=== PATIENT | female | born 1990 | race Caucasian/White ===

== ENCOUNTER 2022-02-07 22:14 | Emergency (ER) | payer BC, SELFPAY ==
[2022-02-07 22:25] VITALS: BP 115/81; PULSE 82; RESP 18; TEMP 36.8; O2SAT 97; BMI 24.6
--- NOTE | 2022-02-07 22:38 | CRLHL7_ITS ---
For Patients: As a result of the Century Cures Act, medical imaging exams and procedure reports are released immediately into your electronic medical record. You may view this report before your referring provider. If you have questions, please contact your health care provider. INDICATION: Vaginal bleeding in . Beta HCG 74. COMPARISON: None available. FINDINGS: Transvaginal ultrasound examination of the female pelvis was performed. No identifiable intrauterine gestation is present. The uterus is anteverted with no evidence of mass. The endometrial lining is mildly increased in thickness at 10 mm. There is a thick-walled cyst in the right ovary consistent with a corpus luteum cyst of , measuring 1.5 x 1.2 x 1.2 centimeters. There is a soft tissue nodule located medial to the right ovary measuring 1.9 x 1.3 x 1.7 centimeters, with echogenicity similar to that of the rest of the right ovary. This is probably a lobulation of the right ovary. There is a cyst with mild low level internal echoes arising from the left ovary measuring 3.5 x 3.0 x 3.6 centimeters, consistent with a hemorrhagic cyst. The ovaries are mildly increased in size, the right measuring 4.5 x 2.7 x 2.6 cm and the left measuring 5.8 x 2.3 x 4.7 cm. There is normal color and pulse doppler flow in both ovaries. There is a tiny amount of free fluid in the cul-de-sac, probably physiologic. A small amount of fluid is also seen adjacent to the left ovary. IMPRESSION: No identifiable intrauterine gestation. With the very low beta HCG, this is most likely completed spontaneous . Mild enlargement of both ovaries from a corpus luteum cyst on the right and a hemorrhagic cyst on the left as described above. Tiny amount of free fluid in the cul-de-sac and adjacent to the left ovary, probably physiologic. Dictated by Tony Judge MD @ 02/08/2022 1:06:00 AM (Electronically Signed)
[2022-02-07 22:57] LABS: Basophils Absolute Auto 0.01 K/uL (0.00-0.30); Basophils Percent Auto 0.1 % (0.0-3.0); Eosinophils Absolute Auto 0.27 K/uL (0.00-0.50); Eosinophils Percent Auto 3.6 % (0.0-7.0); Hematocrit 41.5 % (33.0-51.0); Hemoglobin* 13.7 gm/dL (12.0-16.0); Immature Granulocytes Abs Auto 0.02 K/uL (0.00-0.30); Lymphocytes Percent Auto 40.4 % (20-44); Mean Corpuscular HGB Conc 33 gm/dL (32-36); Mean Corpuscular Hemoglobin 31 pg (26-34); Mean Corpuscular Volume 93 fL (80-100); Monocytes Percent Auto 6.6 % (0.0-11.0); Neutrophils Absolute Auto 3.64 K/uL (1.7-7.0); Platelet Count* 237 K/uL (140-440); RDW Coefficient of Variation % 12.4 % (11.5-15.5); Red Blood Count 4.46 m/uL (4.00-5.20); White Blood Count* 7.43 K/uL (4.50-11.00)
[2022-02-07 23:19] LABS: Slide Review Reflex No
[2022-02-07 23:39] LABS: HCG Quantitative* 73.97 mIU/mL
--- NOTE | 2022-02-07 23:49 | ED.GENADULT ---
HPI - General Adult General Time Seen by Provider: 23:42 <Jean Claude Kessler MD - Last Filed: 02/07/22 23:55> Date Seen: 02/07/22 <Jean Claude Kessler MD - Last Filed: 02/07/22 23:55> Chief complaint: Vaginal Bleeding <Jean Claude Kessler MD - Last Filed: 02/07/22 23:55> Stated complaint: Positive test and is bleeding <Jean Claude Kessler MD - Last Filed: 02/07/22 23:55> Time Seen by Provider: 02/07/22 23:21 <Jean Claude Kessler MD - Last Filed: 02/07/22 23:55> Source: patient <Jean Claude Kessler MD - Last Filed: 02/07/22 23:55> Mode of arrival: ambulatory <Jean Claude Kessler MD - Last Filed: 02/07/22 23:55> Limitations: no limitations <Jean Claude Kessler MD - Last Filed: 02/07/22 23:55> History of Present Illness HPI narrative: 31-year-old 0 0 2 at approximately 5+ 5 weeks by last menstrual period of January 28 who comes in with bleeding and cramping. Patient's menstrual cycles are normally very regular, this month the cycle was 3 days late and lasted until February 03. She had no bleeding on February 04, had some dark bleeding on February 05 and has continued to have some light pink discharge since then. She also has had some lower abdominal cramping and some pain in the right hip. She took a test today which was positive. She did not take a test prior to today. She has been trying to become . <Jean Claude Kessler MD - Last Filed: 02/07/22 23:55> Related Data Allergies/adverse reactions: Allergies Allergy/AdvReac Type Severity Reaction Status Date / Time Sulfa (Sulfonamide Allergy Rash Verified 02/09/22 15:41 Antibiotics) <Jean Claude Kessler MD - Last Filed: 02/07/22 23:55> Review of Systems Status of ROS: Reports: 10 or more systems reviewed and unremarkable except as noted in History and below <Jean Claude Kessler MD - Last Filed: 02/07/22 23:55> PFSH [facility] Medical History: Medical History (Updated 02/09/22 @ 15:42 by Kortney Perez) Delivery normal History of vaginal delivery Radiculitis Spasm of cervical paraspinous muscle Toothache Vaginal pain <Jean Claude Kessler MD - Last Filed: 02/07/22 23:55> Surgical History: Surgical History (Updated 02/09/22 @ 15:42 by Kortney Perez) History of right knee surgery (2008) <Jean Claude Kessler MD - Last Filed: 02/07/22 23:55> Family History: Family History (Updated 02/09/22 @ 15:46 by Kortney Perez) Brother Alcoholism Anxiety disorder Family/Other Alcoholism Father Anxiety disorder Diabetes Family history of early CAD Arthritis Mother Anxiety disorder Fibromyalgia Family/Other Anxiety disorder Sister Asthma Paternal Grandfather Family history of stroke Other Migraine <Jean Claude Kessler MD - Last Filed: 02/07/22 23:55> Social History: Social History Smoking Status: Former smoker What tobacco products do you use: cigarettes Do you use any of these nicotine containing products: None Second hand tobacco smoke exposure: No How often do you have a drink containing alcohol: 2-4 times a month How often do you have six or more drinks on one occasion: Never AUDIT-C Alcohol total score: 2 Non-prescribed substance use: denies use service: No <Jean Claude Kessler MD - Last Filed: 02/07/22 23:55> Exam Narrative: Exam Narrative: General: Well-developed and well-nourished, no acute distress Head: Atraumatic and normocephalic Eyes: Pupils are equal reactive, extraocular motions intact, conjunctiva clear ENT: External nose and ears are normal, posterior pharynx without erythema or exudate Neck: No midline cervical tenderness, full spontaneous range of motion the neck, trachea midline, no adenopathy Heart: Regular rate and rhythm no murmurs or thrills Lungs: Clear to auscultation bilaterally without wheezes or crackles Abdomen: Mild diffuse low abdominal tenderness Musculoskeletal: No tenderness, deformity, or edema Neurologic: Awake, alert, and oriented x3, no gross focal neurologic deficits, cranial nerves intact as tested Psych: Mood and affect are appropriate Skin: No rashes <Jean Claude Kessler MD - Last Filed: 02/07/22 23:55> Const: Vital Signs, click to edit/add: Vital Signs - 24 hr 02/07/22 22:25 Temperature 98.2 F Pulse Rate [Left P ulse Oximeter] 82 Respiratory Rate 18 Blood Pressure [Ri ght Upper Arm] 115/81 Pulse Oximetry 97 <Jean Claude Kessler MD - Last Filed: 02/07/22 23:55> Documenting provider has reviewed patient's vital signs: yes <Jean Claude Kessler MD - Last Filed: 02/07/22 23:55> Course Vital Signs Vital signs: Initial Vital Signs Temperature 98.2 F 02/07/22 22:25 Temperature Source Temporal Artery Scan 02/07/22 22:25 Pulse Rate 82 02/07/22 22:25 Respiratory Rate 18 02/07/22 22:25 Blood Pressure 115/81 02/07/22 22:25 Blood Pressure Mean 92 02/07/22 22:25 Blood Pressure Position Sitting 02/07/22 22:25 Pulse Oximetry 97 02/07/22 22:25 Oxygen Delivery Method 02/07/22 22:25 Vital Signs Temperature 98.2 F 02/07/22 22:25 Pulse Rate 82 02/07/22 22:25 Respiratory Rate 18 02/07/22 22:25 Blood Pressure 115/81 02/07/22 22:25 Pulse Oximetry 97 02/07/22 22:25 Temperature 98.2 F 02/07/22 22:25 Pulse Rate 72 02/08/22 00:50 Respiratory Rate 16 02/08/22 00:50 Blood Pressure 104/75 02/08/22 00:50 Pulse Oximetry 99 02/08/22 00:50 <Jean Claude Kessler MD - Last Filed: 02/07/22 23:55> Medical Decision Making MDM Narrative Medical decision making narrative: Patient seen and examined, prior records are reviewed. Patient presents with vaginal bleeding and positive test. Last menstrual period was abnormal and was on January 28 through February 03. Usually cycles are very regular. Given irregular menstrual cycle and bleeding and pain, this bleeding may have represented a menstrual cycle or may have represented the beginnings of a miscarriage. Beta hCG done today is 74 consistent with very early or miscarriage. Hemoglobin is reassuring and vital is stable. Minimal amount of bleeding at this point per patient report. Blood type is A positive. Ultrasound is pending. <Jean Claude Kessler MD - Last Filed: 02/07/22 23:55> Medical Records Medical records reviewed: Yes I reviewed the patient's medical records <Jean Claude Kessler MD - Last Filed: 02/07/22 23:55> Lab Data Lab results reviewed: Yes I reviewed the patient's lab results <Jean Claude Kessler MD - Last Filed: 02/07/22 23:55> Labs: Lab Results 02/07/22 02/07/22 02/07/22 Range/Units 22:50 22:50 22:50 WBC 7.43 (4.50-11.00) K/uL RBC 4.46 (4.00-5.20) m/uL Hgb 13.7 (12.0-16.0) gm/dL Hct 41.5 (33.0-51.0) % MCV 93 (80-100) fL MCH 31 (26-34) pg MCHC 33 (32-36) gm/dL RDW Coeff of Taco 12.4 (11.5-15.5) % Plt Count 237 (140-440) K/uL Neut % (Auto) 49.0 (42.0-72.0) % Lymph % (Auto) 40.4 (20-44) % [place] % (Auto) 6.6 (0.0-11.0) % Eos % (Auto) 3.6 (0.0-7.0) % Baso % (Auto) 0.1 (0.0-3.0) % Neut # (Auto) 3.64 (1.7-7.0) K/uL Lymph # (Auto) 3.00 H (0.90-2.90) K/uL [place] # (Auto) 0.50 (0.00-0.90) K/UL Eos # (Auto) 0.27 (0.00-0.50) K/uL Baso # (Auto) 0.01 (0.00-0.30) K/uL Abs Immat Gran (auto) 0.02 (0.00-0.30) K/uL HCG, Quant 73.97 mIU/mL Blood Type A Positive <Jean Claude Kessler MD - Last Filed: 02/07/22 23:55> Discharge Plan Discharge Clinical Impression: Miscarriage, threatened, early <Jean Claude Kessler MD - Last Filed: 02/07/22 23:55> Patient Disposition: Home, Self-Care <Jean Claude Kessler MD - Last Filed: 02/07/22 23:55> Condition: Stable <Jean Claude Kessler MD - Last Filed: 02/07/22 23:55> Instructions: Threatened Miscarriage (ED) <Jean Claude Kessler MD - Last Filed: 02/07/22 23:55> Additional Instructions: Nothing per vagina until follow-up with director of corporate real estate. Repeat HCG in 3 days. <Jean Claude Kessler MD - Last Filed: 02/07/22 23:55> Activity Level: No Restrictions <Jean Claude Kessler MD - Last Filed: 02/07/22 23:55> Discharge Diet: Regular <Jean Claude Kessler MD - Last Filed: 02/07/22 23:55> Follow Up/Referrals: [facility] [Provider Group] - 2 Junie Katz MD [Primary Care Provider] - <Jean Claude Kessler MD - Last Filed: 02/07/22 23:55> Stand Alone Forms: [facility] Info Instructions <Jean Claude Kessler MD - Last Filed: 02/07/22 23:55>
[2022-02-08 00:50] VITALS: BP 104/75; PULSE 72; RESP 16; O2SAT 99
== END 2022-02-08 01:20 | disposition home or self-care (01) ==
LOC: ED 02-08 00:58
PROVIDERS: Emergency Provider Family Medicine; PCP Family Medicine
DX: O20.0 Threatened abortion (principal); Z3A.01 Less than 8 weeks gestation of pregnancy
CPT/HCPCS: 36415; 76817; 84702; 85025; 86900; 86901; 99284

== ENCOUNTER 2022-07-23 12:25 | Emergency (ER) | payer BC, SELFPAY ==
[2022-07-23 12:47] VITALS: BP 111/76; PULSE 104; RESP 18; TEMP 37.3; O2SAT 98; BMI 22.3
--- NOTE | 2022-07-23 13:21 | ED_ITS ---
HPI - Back Pain/Injury General Date Seen: 07/23/22 Chief Complaint: Back Injury/Pain Stated Complaint: 6 weeks , back pain Time Seen by Provider: 07/23/22 12:42 Source: patient and family Mode of arrival: ambulatory Limitations: no limitations History of Present Illness HPI Narrative: Patient is a 31-year-old female who presents here for lower back pain, initially started up in her little bit higher back but now is bilateral in her lower back, worse with movement or bending over, she really has no pain with just lying not doing anything. She has tried some heat and ice, and has not tried any Tylenol or ibuprofen, but did use this in the past and says it did not really work, she have use some [id number] creams also, she is 6 weeks , has a history of Jesse Danlos syndrome. Denies any fevers chills or sweats, weight loss, numbness tingling weakness into her lower extremities, presents here with her significant other who seems very loving MD elicited complaint: back pain Onset (ago): day(s) Timing: progressively worsening Severity: moderate Similar Symptoms Previously: No Quality: sharp, dull and spasming Location: lumbar spine Radiation: none Exacerbating factors: movement, sitting upright and walking Relieving factors: immobilization Associated symptoms: denies other symptoms Treatments prior to arrival: cold therapy, heat therapy and other medications Work related injury: No Related Data Home Medications Medication Instructions Recorded Confirmed No Known Home Medications 03/16/22 03/16/22 Allergies Allergy/AdvReac Type Severity Reaction Status Date / Time Sulfa (Sulfonamide Allergy Rash Verified 03/16/22 08:33 Antibiotics) Review of Systems Status of ROS: Reports: 10 or more systems reviewed and unremarkable except as noted in History and below [facility] Medical History History of vaginal delivery Infection due to severe acute respiratory syndrome coronavirus 2 (SARS-CoV-2) Radiculitis Spasm of cervical paraspinous muscle Spontaneous in first trimester (02/2022) Surgical History History of right knee surgery (2008) Family History Brother Alcoholism Anxiety disorder Family/Other Alcoholism Father Anxiety disorder Diabetes Family history of early CAD Arthritis Mother Anxiety disorder Fibromyalgia Family/Other Anxiety disorder Sister Asthma Paternal Grandfather Family history of stroke Other Migraine Social History Smoking Status: Former smoker What tobacco products do you use: cigarettes Smoking quit date/years: <= 15 years ago Do you use any of these nicotine containing products: None Second hand tobacco smoke exposure: No How often do you have a drink containing alcohol: 2-4 times a month How often do you have six or more drinks on one occasion: Never AUDIT-C Alcohol total score: 2 Non-prescribed substance use: denies use service: No Exam Narrative: Exam Narrative: Patient is a very nice 31-year-old female she is seen in room 6, pupils equal round reactive to light there is no scleral icterus or redness cranial nerves 3- 12 are normal neck is supple full range of motion is elicited, her chest is clear heart sounds are normal, her abdomen is soft and nongravid, there is no tenderness to palpation on any that quadrants, and she has no organomegaly, her back is some mild tenderness in the lower area, bilateral, over sacroiliac crest, there is no spasm or scoliosis noted, no tenderness is noted over her lumbar Thoracics spine on tenderness palpation, she has a lot of pain with any sort of forward flexion extension, lateral flexion, she can only come to approximately 20? in flexion, extension to 0, her lateral flexion is 5?. SLR is are negative to 90? sitting EHLs great toe flexors ankle dorsiflexors plantar flexors knee flexors extensors and hip flexors are graded 5/5 power bilaterally her reflexes are 1/4 bilaterally in her knees and ankles. Sensation reveals no abnormality. Const: Vital Signs, click to edit/add: Vital Signs - 24 hr 07/23/22 12:47 07/23/22 14:27 Temperature 99.1 F 99.1 F Pulse Rate [Right Pulse Oximeter] 104 H 89 Respiratory Rate 18 18 Blood Pressure [Ri ght Upper Arm] 111/76 111/76 Pulse Oximetry 98 Oxygen Delivery Me thod Room Air Documenting provider has reviewed patient's vital signs: yes Course Course Hospital Course: I discussed with the patient that her examination is most consistent with mechanical low back pain, her urinalysis is benign I do not think this is renal colic or UTI, given the fact that she has Jesse-Danlos in his will give her a small supply of narcotic medication to help her, and then have her follow up with primary care, she tells me she knows her back is week which is likely part of the problem, but the current issue is the , her wondered about a back belt and I do not recommend this with a gravid uterus. Vital Signs Vital signs: Initial Vital Signs Temperature 99.1 F 07/23/22 12:47 Temperature Source Temporal Artery Scan 07/23/22 12:47 Pulse Rate 104 H 07/23/22 12:47 Respiratory Rate 18 07/23/22 12:47 Blood Pressure 111/76 07/23/22 12:47 Blood Pressure Mean 87 07/23/22 12:47 Blood Pressure Position Standing 07/23/22 12:47 Pulse Oximetry 98 07/23/22 12:47 Oxygen Delivery Method 07/23/22 12:47 Vital Signs Temperature 99.1 F 07/23/22 12:47 Pulse Rate 104 H 07/23/22 12:47 Respiratory Rate 18 07/23/22 12:47 Blood Pressure 111/76 07/23/22 12:47 Pulse Oximetry 98 07/23/22 12:47 Oxygen Delivery Method 07/23/22 12:47 Temperature 99.1 F 07/23/22 14:27 Pulse Rate 89 07/23/22 14:27 Respiratory Rate 18 07/23/22 14:27 Blood Pressure 111/76 07/23/22 14:27 Pulse Oximetry 98 07/23/22 12:47 Oxygen Delivery Method 07/23/22 12:47 MDM - Back Pain/Injury MDM Narrative Medical decision making narrative: Life-threatening differential diagnosis considered include: Cauda equina an epidural abscess, other differential diagnosis considered includes sprain, contu cuco, nerve root entrapment, radiculopathy, muscle spasm, urolithiasis, lumbar fracture, pyelonephritis, appendicitis, biliary colic, as well as other etiologies. The patient denies saddle anesthesia bowel or bladder incontinence or lower extremity weakness, recent weight loss, or history of malignancy. I think we should also rule out the bladder infection given she is Lab Data Labs: Lab Results 07/23/22 Range/Units 13:49 Urine Color Yellow (Yellow) Urine Appearance Clear (Clear) Urine pH 7.5 (5.0-8.5) Ur Specific [place]ore 1.020 (1.000-1.030) Urine Protein Negative (Negative) Urine Glucose (UA) Negative (Negative) Urine Ketones Negative (Negative) Urine Blood Negative (Negative) Urine Nitrite Negative (Negative) Urine Bilirubin Negative (Negative) Urine Urobilinogen 0.2 (0.2-1.0) Ur Leukocyte Esterase 1+ A (Negative) Urine RBC 0-2 (0-2) Urine WBC 10-25 A (0-5) Ur Squamous Epith Cells Few (None-Few) Urine Bacteria Few A (None) Urine Mucus Few A (None) Discharge Plan Discharge Clinical Impression: Strain of lumbar region, Patient Disposition: Home w/ Parent or Adult Condition: Stable Instructions: Back Pain (ED) Additional Instructions: Home and rest. Use medications as directed, ice and/or heat. Follow-up with primary care, return if fevers, chills, sweats, nausea, vomiting or other symptoms. Prescriptions: No Action No Known Home Medications Follow Up/Referrals: Junie Da Silva MD [Staff Physician] - Stand Alone Forms: [employer] [facility] Info Instructions
[2022-07-23] MEDS: ACETAMINOPHEN 500 MG TABLET 1000 MG PO (13:35)
[2022-07-23 14:05] LABS: Appearance Urine Clear (Clear); Bilirubin Urine Negative (Negative); Blood Urine Negative (Negative); Color Urine Yellow (Yellow); Glucose Urine Negative (Negative); Ketones Urine Negative (Negative); Leukocyte Esterase Urine 1+ (Negative); Nitrite Urine Negative (Negative); Protein Urine Negative (Negative); Urobilinogen Urine 0.2 (0.2-1.0); pH Urine 7.5 (5.0-8.5)
[2022-07-23 14:27] VITALS: BP 111/76; PULSE 89; RESP 18; TEMP 37.3
[2022-07-23 14:29] LABS: Bacteria Urine Few; Mucus Urine Few; RBC Urine 0-2 (0-2); Squamous Epithelial Cell Urine Few (None-Few)
== END 2022-07-23 14:27 | disposition home or self-care (01) ==
PROVIDERS: Emergency Provider Family Medicine
DX: S39.012A Strain of muscle, fascia and tendon of lower back, initial encounter (principal); Z3A.01 Less than 8 weeks gestation of pregnancy
CPT/HCPCS: 81001; 87086; 99283; 99284; A9270

== ENCOUNTER 2022-07-24 09:56 | Emergency (ER) | payer BC, SELFPAY ==
[2022-07-24 10:03] VITALS: BP 112/70; PULSE 92; RESP 22; TEMP 36.4; O2SAT 100; BMI 22.3
--- NOTE | 2022-07-24 10:20 | CRLHL7_ITS ---
For Patients: As a result of the Cures Act, medical imaging exams and procedure reports are released immediately into your electronic medical record. You may view this report before your referring provider. If you have questions, please contact your health care provider. INDICATION: Back pain TECHNIQUE: Real-time groves-scale imaging of the pelvis was performed. FINDINGS: Intrauterine with intrauterine gestational sac present crown-rump length measures 7 millimeters corresponding to 6 weeks 4 days CHERIE of 03/15/2023. cardiac activity measures 121 beats minute. No perigestational hemorrhage. Yolk sac seen unremarkable Left ovary measures 4.6 x 3.5 x 4.5 centimeters 3.7 centimeter anechoic simple cyst in the left ovary normal blood flow to left ovary. Right ovary measures 3.4 x 2.8 x 2.2 centimeters and is unremarkable probable corpus luteum cyst in the right ovary. No free fluid no adnexal mass. IMPRESSION: Normal first trimester OB ultrasound exam. Gestational age calculated at 6 weeks 4 days with a sonographic due date of 03/15/2023. 3.7 centimeter simple left ovarian cyst. 2 centimeter probable right ovarian corpus luteum cyst. Dictated by Clair Phillips MD @ 07/24/2022 1:00:13 PM (Electronically Signed)
--- NOTE | 2022-07-24 10:22 | ED_ITS ---
HPI - General Adult General Chief complaint: Back Injury/Pain Stated complaint: Back pain, vomiting Time Seen by Provider: 07/24/22 10:10 History of Present Illness HPI narrative: This 31-year-old female comes in with severe low back pain. She was seen yesterday for the same symptoms and diagnosed with mechanical low back pain and urinary tract infection. 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 She does not report any injury event. She did received prescription for Keflex and oxycodone. She has taken 1 tablet of Keflex and states that the oxycodone did not help very much. She had difficulty through the night and reports increased pain with any kind of movement. She does not report any symptoms of dysuria or report any fever. 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 This pain is lessened when she exercises regularly but states that she has not done so recently. Related Data Previous Rx's Medication Instructions Recorded hydrocodone 5 mg-acetaminophen 325 1 tab PO Q4-6H PRN pain #20 tabs 07/24/22 mg tablet ketorolac 10 mg tablet 10 mg PO Q8H 5 days #15 tabs 07/24/22 Allergies Allergy/AdvReac Type Severity Reaction Status Date / Time Sulfa (Sulfonamide Allergy Rash Verified 03/16/22 08:33 Antibiotics) Review of Systems Status of ROS: Reports: 10 or more systems reviewed and unremarkable except as noted in History and below Narrative: Constitutional: No fevers, no weight gain or loss. Eyes: No discharge. No vision changes. HENT: No congestion, no sore throat, no ear pain. Cardiovascular: No chest pain, no palpitations. Respiratory: No shortness of breath, no wheezes, no cough. Gastrointestinal: No abdominal pain, no vomiting, no diarrhea. Genitourinary: No dysuria, no hematuria. Musculoskeletal: Normal range of motion. Low back pain as described above. Skin: No rashes, no pruritis. Neurological: No dizziness, weakness, sensory change, speech change. Endo/Heme/Allergies: No bruising or bleeding. No polydipsia. Pysch: no suicidality, no anxiety, no insomnia. All other systems reviewed and are negative. PFSH PFS Medical History History of vaginal delivery Infection due to severe acute respiratory syndrome coronavirus 2 (SARS-CoV-2) Radiculitis Spasm of cervical paraspinous muscle Spontaneous in first trimester (02/2022) Surgical History History of right knee surgery (2008) Family History Brother Alcoholism Anxiety disorder Family/Other Alcoholism Father Anxiety disorder Diabetes Family history of early CAD Arthritis Mother Anxiety disorder Fibromyalgia Family/Other Anxiety disorder Sister Asthma Paternal Grandfather Family history of stroke Other Migraine Social History Smoking Status: Former smoker What tobacco products do you use: cigarettes Smoking quit date/years: <= 15 years ago Do you use any of these nicotine containing products: None Second hand tobacco smoke exposure: No How often do you have a drink containing alcohol: 2-4 times a month How often do you have six or more drinks on one occasion: Never AUDIT-C Alcohol total score: 2 Non-prescribed substance use: denies use service: No Exam Narrative: Exam Narrative: Constitutional: Well-developed, well-nourished. She appears to be in distress because of pain in her low back. HEENT: Normocephalic, atraumatic. Neck: Normal range of motion. Nontender. Supple. Heart: Regular. No murmurs. Normal rate. Intact distal pulses. Lungs: Clear to auscultation. No chest discomfort. No wheezes, rhonchi, or rales. Abdomen: Normal bowel sounds. Nontender. No rebound tenderness. Genitalia: Deferred. Back: No midline tenderness when palpating along her spine.. Normal range of motion. Pain is located in the low back diffusely. Extremities: Normal range of motion. No injury. Skin: Intact. No rash. Warm. No erythema or pallor. Neurologic: No altered sensation. No weakness. Alert and oriented. Psychiatric: No suicidality. No anxiety or depression. No insomnia. Nursing notes and vitals signs are reviewed. Const: Vital Signs, click to edit/add: Vital Signs - 24 hr 07/24/22 10:03 Temperature 97.6 F Pulse Rate [Pulse Oximeter] 92 Respiratory Rate 22 Blood Pressure [Ri ght Upper Arm] 112/70 Pulse Oximetry 100 Oxygen Delivery Me thod Room Air Course Vital Signs Vital signs: Initial Vital Signs Temperature 97.6 F 07/24/22 10:03 Temperature Source Temporal Artery Scan 07/24/22 10:03 Pulse Rate 92 07/24/22 10:03 Respiratory Rate 22 07/24/22 10:03 Blood Pressure 112/70 07/24/22 10:03 Blood Pressure Mean 84 07/24/22 10:03 Blood Pressure Position Semi-Fowlers 07/24/22 10:03 Pulse Oximetry 100 07/24/22 10:03 Oxygen Delivery Method 07/24/22 10:03 Vital Signs Temperature 97.6 F 07/24/22 10:03 Pulse Rate 92 07/24/22 10:03 Respiratory Rate 22 07/24/22 10:03 Blood Pressure 112/70 07/24/22 10:03 Pulse Oximetry 100 07/24/22 10:03 Oxygen Delivery Method 07/24/22 10:03 Temperature 97.6 F 07/24/22 10:03 Pulse Rate 92 07/24/22 10:03 Respiratory Rate 22 07/24/22 10:03 Blood Pressure 112/70 07/24/22 10:03 Pulse Oximetry 100 07/24/22 10:03 Oxygen Delivery Method 07/24/22 10:03 Medical Decision Making MDM Narrative Medical decision making narrative: This patient comes in with severe back pain. She is about 6 weeks . She was seen yesterday and diagnosed with musculoskeletal pain in the back and urinary tract infection. She did take 1 dose of Keflex but returns today because of uncontrolled pain despite taking oxycodone twice. An ultrasound is ordered to further assess her pain and to rule out ectopic . She does have a gestational sac that is intrauterine. There is evidence of a left ovarian cyst. This likely is the cause of her pain. She did receive an IV dose of Dilaudid and Rocephin. She is okay to be discharged home. Prescription for Dana and Toradol is provided. Lab Data Labs: Lab Results 07/24/22 07/24/22 Range/Units 10:35 10:35 WBC 8.10 (4.50-11.00) K/uL RBC 4.11 (4.00-5.20) m/uL Hgb 12.4 (12.0-16.0) gm/dL Hct 36.0 (33.0-51.0) % MCV 88 (80-100) fL MCH 30 (26-34) pg MCHC 34 (32-36) gm/dL RDW Coeff of Taco 11.9 (11.5-15.5) % Plt Count 216 (140-440) K/uL Neut % (Auto) 78.9 H (42.0-72.0) % Lymph % (Auto) 15.9 L (20-44) % [place] % (Auto) 4.4 (0.0-11.0) % Eos % (Auto) 0.6 (0.0-7.0) % Baso % (Auto) 0.1 (0.0-3.0) % Neut # (Auto) 6.40 (1.7-7.0) K/uL Lymph # (Auto) 1.30 (0.90-2.90) K/uL [place] # (Auto) 0.40 (0.00-0.90) K/UL Eos # (Auto) 0.05 (0.00-0.50) K/uL Baso # (Auto) 0.01 (0.00-0.30) K/uL Sodium 137 (135-149) mmol/L Potassium 3.8 (3.6-5.1) mmol/L Chloride 109 (96-114) mmol/L Carbon Dioxide 20 (20-32) mmol/L BUN 7 (5-24) mg/dL Creatinine 0.4 L (0.5-1.5) mg/dL Estimated Creat Clear 152.36 Estimated GFR 135 ml/min Glucose 102 (60-115) mg/dL Calcium 8.6 (8.4-10.6) mg/dL Imaging Data ultrasound: My impression: Gestational sac in the uterus. Left ovarian cyst. Discharge Plan Discharge Clinical Impression: Urinary tract infection, Ovarian cyst Patient Disposition: Home w/ Parent or Adult Condition: Stable Additional Instructions: Take medication as prescribed and needed. Follow up with MD or return if worsening. Prescriptions: New hydrocodone-acetaminophen 5-325 mg tablet 1 tab PO Q4-6H PRN (Reason: pain) Qty: 20 0RF ketorolac 10 mg tablet 10 mg PO Q8H 5 Days Qty: 15 0RF Follow Up/Referrals: Provider,Not a Local [Primary Care Provider] - Stand Alone Forms: [employer] Info Instructions
[2022-07-24 10:51] LABS: Basophils Absolute Auto 0.01 K/uL (0.00-0.30); Basophils Percent Auto 0.1 % (0.0-3.0); Eosinophils Absolute Auto 0.05 K/uL (0.00-0.50); Eosinophils Percent Auto 0.6 % (0.0-7.0); Hemoglobin* 12.4 gm/dL (12.0-16.0); Immature Granulocytes Abs Auto 0.01 K/uL (0.00-0.30); Immature Granulocytes Pct Auto 0.1 %; Lymphocytes Percent Auto 15.9 % (20-44); Mean Corpuscular HGB Conc 34 gm/dL (32-36); Mean Corpuscular Hemoglobin 30 pg (26-34); Mean Corpuscular Volume 88 fL (80-100); Monocytes Percent Auto 4.4 % (0.0-11.0); Neutrophils Percent Auto 78.9 % (42.0-72.0); Platelet Count* 216 K/uL (140-440); RDW Coefficient of Variation % 11.9 % (11.5-15.5); Red Blood Count 4.11 m/uL (4.00-5.20)
[2022-07-24] MEDS: ONDANSETRON 2 MG/ML inj 4 MG IVP (10:51)
[2022-07-24 10:52] LABS: Slide Review Reflex No
[2022-07-24] MEDS: HYDROmorphone 0.5 mg/0.5 ml inj IVP (10:53)
[2022-07-24] MEDS: cefTRIAXone 1 GM in 0.9 % SODIUM CHLORIDE Mini-bag 100 ML IVPB (10:53)
[2022-07-24 10:57] LABS: Chloride* 109 mmol/L (96-114)
[2022-07-24 10:58] LABS: Potassium* 3.8 mmol/L (3.6-5.1); Sodium* 137 mmol/L (135-149)
[2022-07-24 11:00] VITALS: BP 102/66; PULSE 81; O2SAT 97
[2022-07-24 11:00] LABS: Creatinine* 0.4 mg/dL (0.5-1.5); Est. Creatinine Clearance* 152.36; Estimated Glomerular Filt Rate 135 ml/min
[2022-07-24 11:01] LABS: Blood Urea Nitrogen* 7 mg/dL (5-24); Calcium* 8.6 mg/dL (8.4-10.6); Carbon Dioxide* 20 mmol/L (20-32); Glucose* 102 mg/dL (60-115)
[2022-07-24 11:30] VITALS: BP 102/62; PULSE 81; O2SAT 99
[2022-07-24 12:00] VITALS: BP 90/64; PULSE 79; RESP 18; O2SAT 97
[2022-07-24 12:30] VITALS: BP 92/64; PULSE 82
[2022-07-24 13:00] VITALS: BP 94/72; PULSE 82; O2SAT 99
== END 2022-07-24 13:15 | disposition home or self-care (01) ==
PROVIDERS: Emergency Provider Emergency Medicine Emergency Medical Services
DX: N39.0 Urinary tract infection, site not specified (principal); N83.202 Unspecified ovarian cyst, left side
CPT/HCPCS: 36415; 76801; 80048; 85025; 93976; 96365; 96375; 99284; 99285; J0696; J1170; J2405

== ENCOUNTER 2022-08-04 09:06 | Outpatient (CLI) | payer BC, SELFPAY ==
--- NOTE | 2022-08-04 09:15 | CRLHL7_ITS ---
For Patients: As a result of the Century Cures Act, medical imaging exams and procedure reports are released immediately into your electronic medical record. You may view this report before your referring provider. If you have questions, please contact your health care provider. INDICATION: First trimester scan, establish dates. COMPARISON: 07.24.22. TECHNIQUE: Real-time groves-scale imaging of the pelvis was performed. FINDINGS: Sonographic imaging demonstrates a single living intrauterine gestation. The embryo demonstrates a regular cardiac rate measuring 174 beats per minute. The embryo`s crown-rump length measurement of 1.9 cm corresponds to a gestational age of 8 weeks 3 days with a sonographic due date of 03/13/2023. There is a normal-appearing yolk sac. There are no gross abnormalities noted within the embryo at this early state of development. The gestational sac has a normal appearance. There is no evidence of a perigestational hemorrhage. The amount of fluid within the sac appears appropriate for gestational age. The cervix is closed. The myometrium appears normal. The ovaries are of normal size. Corpus luteal cyst right ovary measuring 2.1 x 1.4 x 1.5 cm. Simple circumscribed cyst within the posterior cul-de-sac measuring 4.0 x 2.5 x 4.2 cm. There are no suspicious fluid collections noted in the cul-de-sac. IMPRESSION: Single living intrauterine with sonographic gestational age 8 weeks 3 days and sonographic due date 03/13/2023. Dictated by Arnulfo Dominguez MD @ 08/04/2022 10:02:47 AM (Electronically Signed)
[2022-08-04 14:43] LABS: Hepatitis B Surface Antigen* Negative (Negative)
[2022-08-04 14:54] LABS: HIV 1/2/P24 Combo Screen* Negative (Negative)
[2022-08-04 15:00] LABS: Hepatitis C Virus Antibody* Negative (Negative)
[2022-08-06 12:51] LABS: Rapid Plasma Reagin (RPR) Non Reactive (Non Reactive)
== END 2022-08-04 09:07 | disposition home or self-care (01) ==
LOC: US 09:07
PROVIDERS: Visit Provider Advanced Practice Midwife
DX: Z34.91 Encounter for supervision of normal pregnancy, unspecified, first trimester (principal); Z3A.08 8 weeks gestation of pregnancy
CPT/HCPCS: 36415; 76817; 86592; 86703; 86762; 86787; 86803; 86850; 86900; 86901; 87086; 87340; 87491; 87591

== ENCOUNTER 2022-09-01 10:09 | Outpatient (CLI) | payer BC, SELFPAY | END 2022-09-01 10:10 | disposition home or self-care (01) | PROVIDERS: Visit Provider Obstetrics & Gynecology | DX: R30.0 Dysuria (principal) | CPT/HCPCS: 87086 ==

== ENCOUNTER 2022-09-04 08:30 | Emergency (ER) | payer BC, SELFPAY ==
[2022-09-04 08:37] VITALS: BP 101/66; PULSE 70; RESP 16; TEMP 36.3; O2SAT 99; BMI 22.7
--- NOTE | 2022-09-04 09:20 | ED_ITS ---
HPI - General Adult General Time Seen by Provider: 09:20 Date Seen: 09/04/22 Chief complaint: Vaginal Bleeding Stated complaint: 12 weeks /bleeding Time Seen by Provider: 09/04/22 09:20 Source: patient and RN notes reviewed Mode of arrival: ambulatory Limitations: no limitations History of Present Illness HPI narrative: Patient is a 31-year-old female coming in with some spotting with wiping. She is also feeling some pelvic type pain that is reminiscent of cramping with menses. She is about 12 weeks . Did review her labs and she is A positive. She had a miscarriage in January of this past year. She is still having nausea vomiting associated with her . This past Sunday, she was started on antibiotics for possible UTI with some urinary symptoms. She is awaiting the urine culture today, I did look at that as well and there was no urine culture evidence of UTI. Reviewed with her that I would have a UA recollected, but at this time would ultimately defer to the cable splicer as to whether they would complete or stop antibiotics. She has noted no fevers chills. No nausea vomiting or diarrhea. There has been no abdominal trauma. She reportedly has had 2 other pregnancies. It appears that she was started on Keflex for this presumed UTI. There has been no intercourse recently. Related Data Home Medications Medication Instructions Recorded Confirmed prenat.vits,betina,[id number] 1 tab PO QDAY 08/04/22 09/04/22 Previous Rx's Medication Instructions Recorded ondansetron 4 mg disintegrating 4 mg PO Q8H PRN nausea and 09/01/22 tablet vomiting #30 tabs Allergies Allergy/AdvReac Type Severity Reaction Status Date / Time Sulfa (Sulfonamide Allergy Rash Verified 09/04/22 08:43 Antibiotics) Review of Systems Status of ROS: Reports: 6 or more systems reviewed and unremarkable except as noted in History and below [facility] Medical History History of vaginal delivery Infection due to severe acute respiratory syndrome coronavirus 2 (SARS-CoV-2) Radiculitis Spasm of cervical paraspinous muscle Spontaneous in first trimester (02/2022) Surgical History History of right knee surgery (2008) [place] teeth extracted Family History Brother Alcoholism Anxiety disorder Family/Other Alcoholism Father Anxiety disorder Diabetes Family history of early CAD Arthritis Mother Anxiety disorder Fibromyalgia Immune deficiency disorder Family/Other Anxiety disorder Sister Asthma FH: Down syndrome Paternal Grandfather Family history of stroke Other Migraine Social History Smoking Status: Former smoker What tobacco products do you use: cigarettes Smoking quit date/years: <= 15 years ago Do you use any of these nicotine containing products: None Second hand tobacco smoke exposure: No How often do you have a drink containing alcohol: never How often do you have six or more drinks on one occasion: Never AUDIT-C Alcohol total score: 0 Non-prescribed substance use: denies use Little interest or pleasure in doing things: not at all Feeling down, depressed, or hopeless: several days service: No Exam Const: Vital Signs, click to edit/add: Vital Signs - 24 hr 09/04/22 08:37 Temperature 97.4 F L Pulse Rate [Right Pulse Oximeter] 70 Respiratory Rate 16 Blood Pressure [Ri ght Upper Arm] 101/66 Pulse Oximetry 99 Oxygen Delivery Me thod Room Air Documenting provider has reviewed patient's vital signs: yes Common normals: no apparent distress, average body habitus, oriented x3, no limitations, healthy appearing, alert and well nourished General appearance: cooperative, comfortable, well kempt and well developed Nutritional appearance: thin HENMT: Common normals: normocephalic, head/scalp atraumatic, hearing grossly normal bilaterally and external ears normal Head and scalp: normocephalic and atraumatic External ear: external ears normal Eye: Common normals: PERRL, EOMs intact bilaterally, conjunctivae normal and no scleral icterus Conjunctiva: conjunctiva(e) normal Pupil: PERRL Neck & C-Spine: Common normals: full ROM, no lymphadenopathy, supple, no meningeal signs, no JVD and thyroid normal Thyroid: thyroid normal Resp: Common normals: normal respiratory effort, no retractions, no use of accessory muscles and clear to auscultation bilaterally Effort & inspection: able to speak in complete sentences Auscultation: clear to auscultation bilaterally Cardio: Common normals: no JVD, regular rate, regular rhythm, S1 normal heart sound, S2 normal heart sound, no gallops, no clicks, no murmurs and no rub Rate: regular rate Rhythm: regular rhythm Heart sounds: S1 normal and S2 normal GI: Common normals: Normal to inspection, nondistended, normoactive bowel sounds present, soft to palpation, no hepatosplenomegaly and no masses Palpation: soft and no hepatosplenomegaly Other: Has some mild generalized suprapubic and bilateral lower quadrant pain but no rebound or guarding. Neuro: Common normals: oriented x3 Sensorium/orientation: alert Meningeal signs: no meningeal signs Psych: Appearance: well kempt Course Course Hospital Course: Did review with patient that it is my medical opinion that urine cultures sometimes do not always identify urinary pathology. I think we recollect the urinalysis. We will obtain a pelvic ultrasound to look at the viability of the fetus as certainly bleeding can signify miscarriage. Her blood type is A positive. We will obtain a CBC in hCG quantitative in case she needs further following. Reevaluation(s) Reevaluation #1: Have reviewed with patient and provided her a copy of the ultrasound report. She has a subchorionic hemorrhage. We discussed pelvic rest, resting overall. She is to contact her cable splicer today and let them know of the finding, see when they want to see her back as well as discuss the antibiotics in the setting of a negative urine culture. I will defer the antibiotic treatment of her urine to her cable splicer. They were reassured. Time: 10:20 Vital Signs Vital signs: Initial Vital Signs Temperature 97.4 F L 09/04/22 08:37 Temperature Source Temporal Artery Scan 09/04/22 08:37 Pulse Rate 70 09/04/22 08:37 Respiratory Rate 16 09/04/22 08:37 Blood Pressure 101/66 09/04/22 08:37 Blood Pressure Mean 77 09/04/22 08:37 Blood Pressure Position Sitting 09/04/22 08:37 Pulse Oximetry 99 09/04/22 08:37 Oxygen Delivery Method 09/04/22 08:37 Vital Signs Temperature 97.4 F L 09/04/22 08:37 Pulse Rate 70 09/04/22 08:37 Respiratory Rate 16 09/04/22 08:37 Blood Pressure 101/66 09/04/22 08:37 Pulse Oximetry 99 09/04/22 08:37 Oxygen Delivery Method 09/04/22 08:37 Temperature 97.4 F L 09/04/22 08:37 Pulse Rate 70 09/04/22 08:37 Respiratory Rate 16 09/04/22 08:37 Blood Pressure 101/66 09/04/22 08:37 Pulse Oximetry 99 09/04/22 08:37 Oxygen Delivery Method 09/04/22 08:37 Medical Decision Making Lab Data Lab results reviewed: Yes I reviewed the patient's lab results Labs: Lab Results 09/04/22 09/04/22 09/04/22 Range/Units 09:29 10:03 10:03 WBC 6.40 (4.50-11.00) K/uL RBC 3.67 L (4.00-5.20) m/uL Hgb 11.2 L (12.0-16.0) gm/dL Hct 33.5 (33.0-51.0) % MCV 91 (80-100) fL MCH 31 (26-34) pg MCHC 33 (32-36) gm/dL RDW Coeff of Taco 13.0 (11.5-15.5) % Plt Count 192 (140-440) K/uL Neut % (Auto) 67.7 (42.0-72.0) % Lymph % (Auto) 25.9 (20-44) % [place] % (Auto) 4.7 (0.0-11.0) % Eos % (Auto) 1.3 (0.0-7.0) % Baso % (Auto) 0.2 (0.0-3.0) % Neut # (Auto) 4.30 (1.7-7.0) K/uL Lymph # (Auto) 1.70 (0.90-2.90) K/uL [place] # (Auto) 0.30 (0.00-0.90) K/UL Eos # (Auto) 0.10 (0.00-0.50) K/uL Baso # (Auto) 0.00 (0.00-0.30) K/uL HCG, Quant 940192.00 mIU/mL Urine Color Yellow (Yellow) Urine Appearance Slightly Cloudy A (Clear) Urine pH 7.0 (5.0-8.5) Ur Specific [place] 1.025 (1.000-1.030) Urine Protein Negative (Negative) Urine Glucose (UA) Negative (Negative) Urine Ketones Negative (Negative) Urine Blood Trace-intact A (Negative) Urine Nitrite Negative (Negative) Urine Bilirubin Negative (Negative) Urine Urobilinogen 0.2 (0.2-1.0) Ur Leukocyte Esterase Trace A (Negative) Urine RBC 0-2 (0-2) Urine WBC 2-5 (0-5) Ur Squamous Epith Cells Moderate A (None-Few) Amorphous Sediment Few A (None) Urine Bacteria Moderate A (None) Imaging Data OB ultrasound: Attestation: I have reviewed the pertinent imaging results. Radiologist's impression: Patient: GOPAL CUEVAS Facility:?[facility] Patient ID:?[id number] Site Patient ID:?[id number]. Site :?[id number] Study:?US OB Pelvis -09/04/2022 9:57:40 AM Ordering Physician:?Hema Beckham Final Report: Indication: Spotting at 12 weeks. Technique: Sonography of the gravid uterus was performed. The imaging was performed transabdominally. Doppler was also performed Comparison: August 04, 2022 Findings: There is a single live intrauterine . heart rate is 157 beats per minute which is normal. The morphologic appearance of the gestational sac is within normal limits. There is a subchorionic hemorrhage noted measuring 4.4 x 2.3 x 0.8 centimeters. This is inferior and to the right posterior to the placenta. The ovaries were not visualized. There was no adnexal mass. No free fluid A crown rump length measurement of 6.8 centimeters was obtained correspond to 13 weeks and 1 day and an estimated date of delivery of 03/11/2023. Impression: 1. There is a subchorionic hemorrhage noted measuring 4.4 x 2.3 x 0.8 centimeters. This is inferior towards the right posterior to the placenta. 2. There is a single live intrauterine at 13 weeks and 1 day with a normal heart rate of 157 beats per minute. The age is concordant with the age predicted by the prior imaging studies. Dictated by Morgan Moore MD @ 09/04/2022 10:06:31 AM (Electronic Signature) Critical Care Time Critical Care Time Critical Care Time: No Discharge Plan Discharge Clinical Impression: Subchorionic hemorrhage Condition: Stable Additional Instructions: Pelvic rest and on and recommended rest for you today. Nothing in pelvis until further directed by your cable splicer. Contact your cable splicer is a office today, review with them that you have had a subchorionic hemorrhage and see when they want you to follow-up. Can also inquire whether or not they want you to stay on the antibiotics based on the urine culture that is now back. If you have increased bleeding, please contact the OB on-call or the cable splicer's office if it is during the daytime. If you have severe heavy bleeding, it is always recommended that you be evaluated in the emergency room. Discharge Diet: Regular Prescriptions: No Action prenat.vits,betina,[id number] Tablet 1 tab PO QDAY ondansetron 4 mg tablet,disintegrating 4 mg PO Q8H PRN (Reason: nausea and vomiting) Qty: 30 0RF Follow Up/Referrals: Provider,Not a Local [Primary Care Provider] - Stand Alone Forms: [facility] Info Instructions
--- NOTE | 2022-09-04 09:29 | CRLHL7_ITS ---
For Patients: As a result of the Century Cures Act, medical imaging exams and procedure reports are released immediately into your electronic medical record. You may view this report before your referring provider. If you have questions, please contact your health care provider. Indication: Spotting at 12 weeks. Technique: Sonography of the gravid uterus was performed. The imaging was performed transabdominally. Doppler was also performed Comparison: August 04, 2022 Findings: There is a single live intrauterine . heart rate is 157 beats per minute which is normal. The morphologic appearance of the gestational sac is within normal limits. There is a subchorionic hemorrhage noted measuring 4.4 x 2.3 x 0.8 centimeters. This is inferior and to the right posterior to the placenta. The ovaries were not visualized. There was no adnexal mass. No free fluid A crown rump length measurement of 6.8 centimeters was obtained correspond to 13 weeks and 1 day and an estimated date of delivery of 03/11/2023. Impression: 1. There is a subchorionic hemorrhage noted measuring 4.4 x 2.3 x 0.8 centimeters. This is inferior towards the right posterior to the placenta. 2. There is a single live intrauterine at 13 weeks and 1 day with a normal heart rate of 157 beats per minute. The age is concordant with the age predicted by the prior imaging studies. Dictated by Morgan Moore MD @ 09/04/2022 10:06:31 AM (Electronically Signed)
[2022-09-04 09:51] LABS: Appearance Urine Slightly Cloudy (Clear); Bilirubin Urine Negative (Negative); Blood Urine Trace-intact (Negative); Color Urine Yellow (Yellow); Glucose Urine Negative (Negative); Ketones Urine Negative (Negative); Leukocyte Esterase Urine Trace (Negative); Nitrite Urine Negative (Negative); Protein Urine Negative (Negative); Specific Gravity Urine 1.025 (1.000-1.030); Urobilinogen Urine 0.2 (0.2-1.0)
[2022-09-04 10:02] LABS: RBC Urine 0-2 (0-2)
[2022-09-04 10:03] LABS: Amorphous Sediment Urine Few; Bacteria Urine Moderate; Squamous Epithelial Cell Urine Moderate (None-Few)
[2022-09-04 10:44] LABS: Hematocrit 33.5 % (33.0-51.0); Hemoglobin* 11.2 gm/dL (12.0-16.0); Mean Corpuscular HGB Conc 33 gm/dL (32-36); Mean Corpuscular Hemoglobin 31 pg (26-34); Mean Corpuscular Volume 91 fL (80-100); Red Blood Count 3.67 m/uL (4.00-5.20)
[2022-09-04 10:45] LABS: Lymphocytes Percent Auto 25.9 % (20-44); Neutrophils Percent Auto 67.7 % (42.0-72.0); Platelet Count* 192 K/uL (140-440)
[2022-09-04 10:46] LABS: Basophils Percent Auto 0.2 % (0.0-3.0); Eosinophils Percent Auto 1.3 % (0.0-7.0); Immature Granulocytes Pct Auto 0.2 %; Monocytes Percent Auto 4.7 % (0.0-11.0); Slide Review Reflex No
== END 2022-09-04 10:35 | disposition home or self-care (01) ==
PROVIDERS: Emergency Provider Family Medicine
DX: O46.91 Antepartum hemorrhage, unspecified, first trimester (principal); Z3A.12 12 weeks gestation of pregnancy
CPT/HCPCS: 36415; 76815; 81001; 84702; 85025; 87086; 99283; 99284

== ENCOUNTER 2022-09-20 07:12 | Outpatient (CLI) | payer BC, SELFPAY ==
--- NOTE | 2022-09-20 07:15 | CRLHL7_ITS ---
For Patients: As a result of the Century Cures Act, medical imaging exams and procedure reports are released immediately into your electronic medical record. You may view this report before your referring provider. If you have questions, please contact your health care provider. INDICATION: known MORGAN, continued spotting and cramping COMPARISON: 09/04/2022 TECHNIQUE: Real-time groves-scale imaging of the pelvis was performed. FINDINGS: There is a hypoechoic subchorionic hemorrhage inferiorly in the midline measuring 3.8 x 3.0 x 3.3 cm. Previously, this measured 4.4 x 0.8 x 2.3 cm. [place]-rump length measures 10.4 cm, 16 weeks 2 days. AC 9.1 cm, 15 weeks 2 days, 75th percentile. FL 2.0 cm, 14 weeks 4 days, 39th percentile. BPD 3.1 cm, 15 weeks 6 days, 90th percentile. HC 11.8 cm, 15 weeks 6 days, 87th percentile. heart rate 146 beats per minute. Right ovary normal. 3.8 x 3.0 x 3.6 cm simple left ovarian cyst. Pelvic free fluid. Estimated weight 114 grams, 62nd percentile. IMPRESSION: Single living intrauterine with sonographic age of 15 weeks 3 days and sonographic due date 03/11/2023. Circumscribed subchorionic hemorrhage in the midline inferiorly measuring 3.8 x 3.0 x 3.3 cm. The cervix is closed. Previously, the subchorionic hemorrhage measured 4.4 x 0.8 x 2.3 cm. Dictated by Arnulfo Dominguez MD @ 09/20/2022 10:04:28 AM (Electronically Signed)
== END 2022-09-20 07:13 | disposition home or self-care (01) ==
LOC: US 07:13
PROVIDERS: PCP Advanced Practice Midwife; Visit Provider Obstetrics & Gynecology
DX: O41.8X20 Other specified disorders of amniotic fluid and membranes, second trimester, not applicable or unspecified (principal); O46.8X2 Other antepartum hemorrhage, second trimester; Z3A.16 16 weeks gestation of pregnancy
CPT/HCPCS: 76816

== ENCOUNTER 2022-09-22 16:43 | Emergency (ER) | payer BC, SELFPAY ==
[2022-09-22 17:16] VITALS: BP 97/67; PULSE 78; RESP 18; TEMP 36.8; O2SAT 100; BMI 22.9
[2022-09-22 17:25] LABS: Appearance Urine Clear (Clear); Bilirubin Urine Negative (Negative); Blood Urine Trace-lysed (Negative); Color Urine Yellow (Yellow); Glucose Urine Negative (Negative); Ketones Urine Negative (Negative); Leukocyte Esterase Urine Negative (Negative); Nitrite Urine Negative (Negative); Protein Urine Negative (Negative); Urobilinogen Urine 0.2 (0.2-1.0); pH Urine 6.5 (5.0-8.5)
[2022-09-22 17:43] LABS: RBC Urine 0-2 (0-2); Squamous Epithelial Cell Urine Few (None-Few); WBC Urine 0-2 (0-5)
--- NOTE | 2022-09-22 19:24 | ED_ITS ---
HPI - General Adult General Chief complaint: Vaginal Bleeding Stated complaint: , cramping, uti pain Time Seen by Provider: 09/22/22 18:53 Source: patient Mode of arrival: ambulatory Limitations: no limitations History of Present Illness HPI narrative: 31-year-old female at 15 weeks gestation coming in today for increased abdominal cramping. Patient has been having spotting for about 18 days now. S he states that the spotting has remained the same however she is feeling increasing cramping. Patient was seen 2 days ago with an ultrasound that showed a subchorionic hemorrhage which is known. It did decrease in size from previous ultrasound. She denies fevers, chills. She has been having nausea and vomiting this is unchanged and fairly mild now. She denies any increased urinary frequency, urgency or dysuria. Related Data Home Medications Medication Instructions Recorded Confirmed prenat.vits,betina,[id number] 1 tab PO QDAY 08/04/22 09/04/22 acetaminophen 500 mg tablet 1,000 mg PO Q6H PRN 09/20/22 09/20/22 (Tylenol Extra Strength) Previous Rx's Medication Instructions Recorded ondansetron 4 mg disintegrating 4 mg PO Q8H PRN nausea and 09/01/22 tablet vomiting #30 tabs Allergies Allergy/AdvReac Type Severity Reaction Status Date / Time Sulfa (Sulfonamide Allergy Rash Verified 09/22/22 17:16 Antibiotics) Review of Systems Status of ROS: Reports: 10 or more systems reviewed and unremarkable except as noted in History and below PFSH PFSH Medical History History of vaginal delivery Infection due to severe acute respiratory syndrome coronavirus 2 (SARS-CoV-2) depression Radiculitis Spasm of cervical paraspinous muscle Spontaneous in first trimester (02/2022) UTI (urinary tract infection) Surgical History History of right knee surgery (2008) [place] teeth extracted Family History Brother Alcoholism Anxiety disorder Family/Other Alcoholism Father Anxiety disorder Diabetes Family history of early CAD Arthritis Mother Anxiety disorder Fibromyalgia Immune deficiency disorder Family/Other Anxiety disorder Sister Asthma FH: Down syndrome Paternal Grandfather Family history of stroke Other Migraine Social History Smoking Status: Former smoker What tobacco products do you use: cigarettes Smoking quit date/years: <= 15 years ago Do you use any of these nicotine containing products: None Second hand tobacco smoke exposure: No How often do you have a drink containing alcohol: never How often do you have six or more drinks on one occasion: Never AUDIT-C Alcohol total score: 0 Non-prescribed substance use: denies use Little interest or pleasure in doing things: not at all Feeling down, depressed, or hopeless: several days service: No Exam Narrative: Exam Narrative: Well-nourished well-developed patient in no acute distress. Alert and oriented. Answers questions appropriately. Mood and affect are appropriate. Thoughts are goal oriented and rational. No tangential or magical thinking noted. Patient speaks in full sentences without needing to catch her breath. HEENT: Normocephalic atraumatic. Pupils are equally round reactive to light. Extraocular muscles are intact. Conjunctivae are moist without any icterus noted. Cardiovascular: Regular rate and rhythm. Lungs: Clear to auscultation bilaterally. Abdomen: Soft and nontender nondistended with normal bowel sounds. Extremities: Bilateral lower extremities are without edema. Skin: Well perfused without any obvious rashes. Const: Vital Signs, click to edit/add: Vital Signs - 24 hr 09/22/22 17:16 09/22/22 22:00 Temperature 98.3 F 98.1 F Pulse Rate [Pulse Oximeter] 78 67 Respiratory Rate 18 18 Blood Pressure [Ri ght Upper Arm] 97/67 101/62 Pulse Oximetry 100 97 Oxygen Delivery Me thod Room Air Room Air Course Course Hospital Course: UA was unremarkable. Qualitative HCG decreased to just above 63,000 from over 120,000. I spoke to CELESTINE Vazquez on-call: Ultrasound was recommended. Ultrasound showing a single live intrauterine with continued subchorionic hemorrhage. Vital Signs Vital signs: Initial Vital Signs Temperature 98.3 F 09/22/22 17:16 Temperature Source Temporal Artery Scan 09/22/22 17:16 Pulse Rate 78 09/22/22 17:16 Pulse Rhythm 09/22/22 17:16 Respiratory Rate 18 09/22/22 17:16 Blood Pressure 97/67 09/22/22 17:16 Blood Pressure Mean 77 09/22/22 17:16 Blood Pressure Position Sitting 09/22/22 17:16 Pulse Oximetry 100 09/22/22 17:16 Oxygen Delivery Method 09/22/22 17:16 Vital Signs Temperature 98.3 F 09/22/22 17:16 Pulse Rate 78 09/22/22 17:16 Respiratory Rate 18 09/22/22 17:16 Blood Pressure 97/67 09/22/22 17:16 Pulse Oximetry 100 09/22/22 17:16 Oxygen Delivery Method 09/22/22 17:16 Temperature 98.1 F 09/22/22 22:00 Pulse Rate 67 09/22/22 22:00 Respiratory Rate 18 09/22/22 22:00 Blood Pressure 101/62 09/22/22 22:00 Pulse Oximetry 97 09/22/22 22:00 Oxygen Delivery Method 09/22/22 22:00 Medical Decision Making MDM Narrative Medical decision making narrative: 31-year-old female continued vaginal spotting and abdominal cramping with . Follow-up with OBGYN. Lab Data Lab results reviewed: Yes I reviewed the patient's lab results Labs: Lab Results 09/22/22 09/22/22 09/22/22 Range/Units 17:05 17:30 19:55 WBC 8.04 (4.50-11.00) K/uL RBC 3.50 L (4.00-5.20) m/uL Hgb 10.8 L (12.0-16.0) gm/dL Hct 31.4 L (33.0-51.0) % MCV 90 (80-100) fL MCH 31 (26-34) pg MCHC 34 (32-36) gm/dL RDW Coeff of [place] 12.8 (11.5-15.5) % Plt Count 203 (140-440) K/uL Neut % (Auto) 62.4 (42.0-72.0) % Lymph % (Auto) 30.3 (20-44) % [place] % (Auto) 5.1 (0.0-11.0) % Eos % (Auto) 2.0 (0.0-7.0) % Baso % (Auto) 0.1 (0.0-3.0) % Neut # (Auto) 5.01 (1.7-7.0) K/uL Lymph # (Auto) 2.44 (0.90-2.90) K/uL [place] # (Auto) 0.40 (0.00-0.90) K/UL Eos # (Auto) 0.16 (0.00-0.50) K/uL Baso # (Auto) 0.01 (0.00-0.30) K/uL HCG, Quant 91775.00 mIU/mL Urine Color Yellow (Yellow) Urine Appearance Clear (Clear) Urine pH 6.5 (5.0-8.5) Ur Specific [place] 1.010 (1.000-1.030) Urine Protein Negative (Negative) Urine Glucose (UA) Negative (Negative) Urine Ketones Negative (Negative) Urine Blood Trace-lysed A (Negative) Urine Nitrite Negative (Negative) Urine Bilirubin Negative (Negative) Urine Urobilinogen 0.2 (0.2-1.0) Ur Leukocyte Esterase Negative (Negative) Urine RBC 0-2 (0-2) Urine WBC 0-2 (0-5) Urine WBC Clumps None (None) Ur Squamous Epith Cells Few (None-Few) Urine Bacteria None (None) Imaging Data Ob ultrasound: Attestation: I have reviewed the pertinent imaging results. Radiologist's impression: OBSTETRICAL ULTRASOUND Technique: Multiple transabdominal sonographic images of the gravid uterus were performed. Comparison: 09/20/2022 ultrasound. Findings: There is a single, live, intrauterine gestation in transverse position. cardiac activity is present with a heart rate of 145 BPM. The placenta is posterior in position and there is no evidence of previa or abruption. The cervix measures 3.6 cm in length and appears closed. Amniotic fluid volume appears subjectively normal and the single deepest pocket measures 3.1 centimeters. A subchorionic hemorrhage is seen in the lower uterine segment to the left, measuring 4.5 x 1.1 x 3.3 centimeters; it measured 3.8 x 3.0 x 3.3 centimeters on the previous exam. There is a 3.8 x 4.1 x 3.0 centimeter simple cyst within the maternal left ovary; previously this measured 3.8 x 3.0 x 3.6 centimeters. IMPRESSION: 1. Single, live, intrauterine gestation in transverse position. 2. Subchorionic hemorrhage measuring 4.5 x 1.1 x 3.3 centimeters. 3. Simple cyst of the maternal left ovary measuring 3.8 x 4.1 x 3.0 centimeters. Discharge Plan Discharge Clinical Impression: Abdominal cramping, Vaginal spotting Patient Disposition: Home, Self-Care Condition: Stable Additional Instructions: Follow-up with OBGYN as scheduled. Prescriptions: No Action prenat.vits,betina,[id number] Tablet 1 tab PO QDAY ondansetron 4 mg tablet,disintegrating 4 mg PO Q8H PRN (Reason: nausea and vomiting) Qty: 30 0RF acetaminophen [Tylenol Extra Strength] 500 mg tablet 1,000 mg PO Q6H PRN Follow Up/Referrals: Tiffany Cerrato CNM [Primary Care Provider] - Stand Alone Forms: [employer] Info Instructions
--- NOTE | 2022-09-22 19:42 | CRLHL7_ITS ---
For Patients: As a result of the Cures Act, medical imaging exams and procedure reports are released immediately into your electronic medical record. You may view this report before your referring provider. If you have questions, please contact your health care provider. INDICATION: 3 weeks of intermittent bleeding/cramping. History of subchorionic hemorrhage and right ovarian complex cyst. OBSTETRICAL ULTRASOUND Technique: Multiple transabdominal sonographic images of the gravid uterus were performed. Comparison: 09/20/2022 ultrasound. Findings: There is a single, live, intrauterine gestation in transverse position. cardiac activity is present with a heart rate of 145 BPM. The placenta is posterior in position and there is no evidence of previa or abruption. The cervix measures 3.6 cm in length and appears closed. Amniotic fluid volume appears subjectively normal and the single deepest pocket measures 3.1 centimeters. A subchorionic hemorrhage is seen in the lower uterine segment to the left, measuring 4.5 x 1.1 x 3.3 centimeters; it measured 3.8 x 3.0 x 3.3 centimeters on the previous exam. There is a 3.8 x 4.1 x 3.0 centimeter simple cyst within the maternal left ovary; previously this measured 3.8 x 3.0 x 3.6 centimeters. IMPRESSION: 1. Single, live, intrauterine gestation in transverse position. 2. Subchorionic hemorrhage measuring 4.5 x 1.1 x 3.3 centimeters. 3. Simple cyst of the maternal left ovary measuring 3.8 x 4.1 x 3.0 centimeters. GUY MAYA MD [employer] Dictated by Michael Maya MD @ 09/22/2022 10:13:27 PM Dictated by: Michael Maya MD @ 09/22/2022 22:18:01 (Electronically Signed)
[2022-09-22 20:01] LABS: Basophils Absolute Auto 0.01 K/uL (0.00-0.30); Basophils Percent Auto 0.1 % (0.0-3.0); Eosinophils Absolute Auto 0.16 K/uL (0.00-0.50); Hematocrit 31.4 % (33.0-51.0); Hemoglobin* 10.8 gm/dL (12.0-16.0); Immature Granulocytes Abs Auto 0.01 K/uL (0.00-0.30); Immature Granulocytes Pct Auto 0.1 %; Lymphocytes Absolute Auto 2.44 K/uL (0.90-2.90); Lymphocytes Percent Auto 30.3 % (20-44); Mean Corpuscular HGB Conc 34 gm/dL (32-36); Mean Corpuscular Hemoglobin 31 pg (26-34); Mean Corpuscular Volume 90 fL (80-100); Monocytes Percent Auto 5.1 % (0.0-11.0); Neutrophils Absolute Auto 5.01 K/uL (1.7-7.0); Neutrophils Percent Auto 62.4 % (42.0-72.0); Platelet Count* 203 K/uL (140-440); RDW Coefficient of Variation % 12.8 % (11.5-15.5); White Blood Count* 8.04 K/uL (4.50-11.00)
[2022-09-22 20:02] LABS: Slide Review Reflex No
[2022-09-22 22:00] VITALS: BP 101/62; PULSE 67; RESP 18; TEMP 36.7; O2SAT 97
== END 2022-09-22 22:28 | disposition home or self-care (01) ==
PROVIDERS: Emergency Medicine; Emergency Provider Family Medicine; PCP Advanced Practice Midwife
DX: O26.859 Spotting complicating pregnancy, unspecified trimester (principal); R10.9 Unspecified abdominal pain
CPT/HCPCS: 36415; 76815; 81001; 84702; 85025; 99284

== ENCOUNTER 2022-10-25 12:08 | Outpatient (CLI) | payer BC, SELFPAY | END 2022-10-25 12:09 | disposition home or self-care (01) | LOC: US 12:08 | PROVIDERS: Visit Provider Pediatrics Neonatal-Perinatal Medicine | DX: Z34.92 Encounter for supervision of normal pregnancy, unspecified, second trimester (principal); Q79.60 Ehlers-Danlos syndrome, unspecified; Z3A.19 19 weeks gestation of pregnancy | CPT/HCPCS: 76811 ==

== ENCOUNTER 2023-01-04 08:30 | Outpatient (RCR) | payer BC, SELFPAY ==
--- NOTE | 2022-09-12 15:48 | PT.OPEX ---
[facility] Out[facility] Eval Start: 09/12/22 09:24 Freq: Status: Active Protocol: Document 09/12/22 12:57 JAIR (Rec: 09/12/22 13:02 JAIR [id number]) E-signed By Gisela Meneses PT Physical Therapy Outpatient Evaluation Insurance Information Recert Due Date 11/11/22 Insurance Name Medicaid,[employer]20/20 Shield Medical Diagnosis (CHERIE: feb) OA jt hyperextensibility of multiple sites fibromyalgia EDS chronic pain B knees and LBP chronic pain Treating Diagnosis pain poor posture weakness instability chronic pain issues Referring MD Tiffany Cerrato CNM Subjective Subjective Ishmael is currently 13 weeks with her 4th (in January 2023 did have a miscarriage). She has multiple c/o pain including in her B shoulders, neck, B wrists, and in B LEs. Pt has diagnosis of EDS, OA, and fibromyalgia many years ago. Her current pain is worse in her shoulders ranging between a 7-10/10, Neck 6-7/10 and LEs 7-9/10. Is c/o frequent LOU. Her B shoulder and neck pain interferes with her ability to sleep, dress, reach overhead, lift, and carry items. Reports having issues with her shoulder subluxing/ dislocating in the past. Her LBP/LE is located in the midline of her back and can raidatine down her LE into her ankles. Can affect either LE. Usually has radicular symtpoms approx 1 time a week. 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 Some need to assist sister with gait, dressing and transfers. Typically no heavy lifting. Precautions Treatment Precautions/Contraindications depression fibromyalgia arthritis: OA EDS 3rd Objective Range of Motion Cervical AROM- Flex: mod limit with pulling along post cspine, Ext: mod + limit, B SB - mod limit with pulling on opp UT, rotation - B: mild limitations without any symptoms Thoracic AROM - Flex: mild limit, Ext: severe limit, B SB: mild limitations with pulling along opp lat trunk, B rotation - mild limits Lumbar AROM - Flex: mod limit, ExtL severe limit with pinching in TL junction, B SB - mod limitations with pulling . Rot - mild limitations. UE AROM - shoulder- B:WFL with the following exceptions: ABD- B: 160. Pain in L shoulder at end range ER and IR. Elbows: 10 deg of hyperextension. Wrist: WFL LE AROM - hip- B: WFL. SLR was limited B to 45 deg with pulling along B post LEs. FABERS - mild limit on L. R WFL. L hip flexion: 105. B knee and B ankle AROM - WFL. Strength MMT- B UEs - shoulder flex- WFL with the following exceptions: B shoulder flexion, scaption : 4/5, ABD: 4-/5 and pain. R shoulder ER: 4-/5; B IR: 4+/5 but pulling in B UT. Elbow - Flex- R: 4/5, L: WFL; extension- B: 4+/5. Wrist - B flexion and extension: 4-/5 with c/o pain B LEs - B hip flexion- r: 4-/5 , L: 5/5, B hip ER and IR: 4-/ 5. B hip ext 3+/5. knee flexion: 4/5 and B knee ext: 4 -/5. Ankle MMT - B WFL except L ankle Inv 4-/5 Balance & Gait Flexed trunk with limited arm swing and reduce trunk rotation. Posture Flexed posture with forward head and protracted shoulders. Increased thoracic kyphosis. Asymmetry noted at iliac crest heights - R ant ilial rotation. Assessment Assessment/Impression 31 yo client presents currently in her second trimester with her 4th . Pt has struggled with this due to morning sickness, ovarian cyst rupture, and some vaginal bleeding. Does have an US scheduled next week to assess current status. Pt did miscarry in January 2023. Her history of arthritis, fibro, and EDS has lead to chronic pain issues. Has not been able to keep up on an exercise program due to her struggles as of late. She does have weakness in multiple jts. Posture is poor with limited ability to maintain good posture > 1 min. Tightness is noted in B HS. Does have hypermobility in multiple jts due to her EDS (ie elbows, wrist, fingers, ankles). Plan is to continue with further skilled PT services including use of therapeutic exercise, therapeutic activities, neuromuscular re-ed, manual therapy, and self cares for symptom reduction and for ability to maintina good health during her . Will need to work on stability /strength as her progresses. Plan of Care Rehabilitation Potential Good Physical Therapy Goals Short-term goals to be completed in 4 weeks: 1. Pt will demonstrate ability to perform pelvic tilts in sitting, standing, and lying down to promote ability to maintain neutral spine in daily activities. 2. Pt will report ability to sleep better at night waking < 2 times a night due to B shoulder and neck pain, 4 out of 7 nights 3. Pt will demonstrate improved sitting posture without cueing in 2 consecutive sessions to decrease strain on neck and to reduce episodes of LOU. Long-term goals to be completed in 12 weeks: 1. Pt will be independent with HEP for improving health during her and for management of her symptoms. 2. Pt will report ability to perform house hold activities/ duties including meal prep, dishes, laundry with <4/10 level of pain, 3 out of 4 trials. 3. Pt will display proper lifting body mechanics to allow for picking up items (10 # or less) with <3/10 level of pain for doing dishes, picking up house, and grocery shopping. Coordination/Communication With Referral Source Treatment Plan/Direct Interventions Joint Mobilization,Manual Therapy,Neuromuscular Re-ed, Self-Care/Home Management, Therapeutic Activities, Therapeutic Exercises Frequency/Duration 1 time a week for up to 12 weeks. Patient Will Be Discharged From Therapy Completion of LTG(s),Skills Plateau,Independent w/HEP, Independently Progressing Evaluation Billing Untimed Code Treatment Minutes 70 Complexity Moderate Certification Information Initial Certification Date 09/12/22 Ending Certification Date 11/11/22 Provider Signature Shows Agreement With POC & Medical Necessity Physician Signature & Date Requested Please Sign/Date Here Physician Comment/Change : Physician NPI Number #
== END 2023-05-04 23:59 | disposition home or self-care (01) ==
PROVIDERS: PCP Advanced Practice Midwife; Visit Provider Advanced Practice Midwife
DX: M24.80 Other specific joint derangements of unspecified joint, not elsewhere classified (principal); M19.90 Unspecified osteoarthritis, unspecified site; M79.7 Fibromyalgia; Q79.60 Ehlers-Danlos syndrome, unspecified; M25.561 Pain in right knee; M25.562 Pain in left knee; G89.29 Other chronic pain; M54.50 Low back pain, unspecified; Z34.90 Encounter for supervision of normal pregnancy, unspecified, unspecified trimester; Z51.89 Encounter for other specified aftercare; R53.1 Weakness; R29.3 Abnormal posture
CPT/HCPCS: 86592; 97110; 97140; 97162; 97535

== ENCOUNTER 2023-01-26 08:47 | Outpatient (CLI) | payer BC, SELFPAY ==
--- OUTSIDE RECORDS SUMMARY | 2023-01-26 08:49 | XMS_ITS | Continuity of Care Document ---
Author Name Unknown Organization [facility]ela Address [address] [place] [address] Phone Care Team Providers Care Supervisor Audit Clerks Name Role Phone Will MD SORIA, Kieran Unavailable Unavailabl e Allergies, Adverse Reactions, Alerts Substance Reaction Status Criticality Sulfa (Sulfonamide Antibiotics) rash Active No Information Medications Medication Instructions Dosage Effective Dates (start - stop) Status Comments gabapentin 300 mg capsule take 1 capsule by oral route every day 300 MG - Active nortriptyline 10 mg capsule take 1 capsule by oral route every day at bedtime 10 MG - Active Procedures Procedure Date Drug test def 22+ classes Drug Urine Toxology With Chromatography OFFICE/OUTPATIENT VISIT, EST OFFICE/OUTPATIENT VISIT, EST OFFICE/OUTPATIENT VISIT, EST OFFICE/OUTPATIENT VISIT, EST Drug test def 22+ classes Drug Urine Toxology With Chromatography OFFICE/OUTPATIENT VISIT, NEW Advance Directives Directive Yes / No Effective Date File Name No Information Encounters Encounter Description Practice Location Reason(s) For Visit Diagnoses Date Provider Providers Copied on Encounter [facility], [address] [place], [id number] , [place] tel: [phone] [facility] No Information 2 Will Kieran. [address] [place], [place], [id number] , [place]. tel: [phone] OFFICE/OUTPAT IENT VISIT, EST [facility], [address] [place], [id number] , [place] tel:[phone] [facility] [place] Widespread pain (chief complaint) Chronic pain syndromeEhlers-D anlos syndromeLong term (current) use of opiate analgesic Dec-0 6-201 8 Hinds Morgan. [address] [place] [address] [address], [place], [place], [id number] , [place]. tel: [phone] Referring Provider: Kieran Casillas, [address] [place] [address], [id number]. tel:[phone] OFFICE/OUTPAT IENT VISIT, [facility], [address] [place] [address], [id number] , [place] tel: [phone] [facility] Widespread pain (chief complaint) Jesse-Danlos syndromeChronic pain syndromeLong term (current) use of opiate analgesic Nov-0 8-201 8 Hinds Morgan. [address] [place] [address] [address], [place], [place], [id number] , [place]. tel: [phone] Referring Provider: Kieran Casillas, [address] [place] [address], [address]. tel:[phone] OFFICE/OUTPAT IENT VISIT, [facility], [address] [place] [address], [id number] , [place] tel: [phone] [facility] Widespread pain (chief complaint) Jesse-Danlos syndromeChronic pain syndrome Oct-1 0-201 8 Amos Henry. [employer], [address], [place], [address], [place]. tel: [phone] Referring Provider: Kieran Casillas, [address] [place] [address], [id number]. tel:[phone] OFFICE/OUTPAT IENT VISIT, [facility], [address] [place] [address], [id number] , [place] tel:[phone] [facility] Widespread pain (chief complaint) Chronic pain syndromeEhlers-D anlos syndrome Sep-0 7-201 8 Amos Henry. [employer], [address], [place], [address], [place]. tel:[phone] Referring Provider: Kieran Casillas, [address] [place], [address]. tel:[phone] OFFICE/OUTPAT IENT VISIT, [facility], [address] [place], [place], [id number] , [place] tel:[phone] [facility] [place] Widespread pain (chief complaint) Chronic pain syndromeEhlers-D anlos syndrome 8 Dandre Figueroa. [facility], [address], [place], [address], [place]. tel:[phone] Referring Provider: Junie Kiran, [address], [address]. tel:[phone] Family History Family Member Type Diagnosis Age At Onset Mother Problem (finding) CIVD and Fibromyalgia Father Problem (finding) Arthritis in back and k nees Payers Payer name Insurance type Covered green party ID Authoriza tion(s) [facility] [id number] Social History Type Description Quantity Date Captured Comments Sex Female Smoking Status No Information Chief Complaint And Reason For Visit No Information Reason For Referral Reason For Referral No Information Plan Of Treatment Date Type Action Status Future Order: Lab Order COMPLIAN CE DRUG ANALYSIS, URINE, WITH MED REPORT ([id number]), Ordered on: Ordered Future Order: Lab Order COMPLIAN CE DRUG ANALYSIS, URINE, WITH MED REPORT ([id number]), Ordered on: Ordered History Of Present Illness Encounter Date Complaint History Of Prese nt Illness Widespread pain Severity level i s 6. Duration: chronic. Location of the pain is lower back, mid back, upper back, neck, bilateral elbow, bilateral wrist, bilateral hand, bilateral hip, bilateral knee, bilateral ankle and bilateral forefoot. The patient describes it as sharp and achy. It occurs persistently. The problem is fluctuating. Symptom is aggravated by daily activities. Relieving factors include walking, massage, rest, heat, Rx Meds, changing positions and physical therapy. Pertinent negatives include diarrhea, fatigue, fever and incontinence (urinary). Widespread pain (comments) Jimmy jesus is here today for a followup and medication refill. She presents with no medications-6 tablets short. States she may have taken more medication than prescribed once since last OV which she believes is why she is coming up short today. She also continues to utilize medical cannabis, including the topical Parisa during the day and topical [place] at night. States she primarily uses the creams and oils on her hands, back, knees, ankles, feet. Patient is not accompanied today and has no further questions or other concerns. Widespread pain Severity level i s 7. Duration: chronic. Location of the pain is lower back, mid back, upper back, neck, bilateral wrist, bilateral hand, left hip, bilateral knee, bilateral ankle, bilateral forefoot and right posterior leg. The patient describes it as sharp and achy. It occurs persistently. The problem is worsening. Symptom is aggravated by weather, daily activities and stress. Relieving factors include standing, walking, stretching, massage, rest, Rx Meds, changing positions, heat and physical therapy. Pertinent negatives include diarrhea, fatigue, fever and incontinence (urinary). Widespread pain (comments) Jimmy jesus is here today for a followup and medication refill. She presents with #2 [place]- on track. She reports recent fall about a month ago which hurt her knees. She also states she is having increased leg pain and ankle pain irritation. Reports the bottom of her feet are still hyersensitive. She states her pain has also been impacting her sleep. Of note, she mentions that she enrolled for medical cannabis program about a month ago, but is still waiting for a response. Patient is not accompanied today and has no further questions or other concerns. Widespread pain (comments) Ms. Raissa gamble is here for follow up and medications refill. Presents with #9 norco-- surplus, d/o 05/04. Reports current medication regimen provides 75% pain relief. Denies side effects from current medication regimen. Pain is fluctuating. States she has quit smoking marijuana. Her worst pain is in her shoulders and neck.No other red flags or neurologic symptoms. Widespread pain Severity level i s 8. Duration: chronic. Location of the pain is whole body and joints. The patient describes it as sharp, achy, burning and tingling. It occurs persistently. The problem is fluctuating. Symptom is aggravated by bending, walking upstairs, walking downstairs, running, sitting, standing, walking, supine, lifting, movement, prolonged positioning and twist. Relieving factors include walking, stretching, massage, rest, heat, Rx Meds, changing postions, PT and pool. Associated symptoms include fatigue. Pertinent negatives include diarrhea, fever and incontinence (urinary). Widespread pain Severity level i s 8. Duration: chronic. Location of the pain is upper back, neck, bilateral elbow, bilateral hand, bilateral knee, feet bilateral and groin. The patient describes it as sharp, achy and burning. It occurs persistently. The problem is fluctuating. Symptom is aggravated by bending, walking upstairs, walking downstairs, running, sitting, standing, walking, supine, twisting, housework and prolonged positioning. Relieving factors include walking, stretching, massage, rest, heat, Rx Meds, PT and changing positions. Pertinent negatives include diarrhea, fatigue, fever and incontinence (urinary). Widespread pain (comments) Ms. Raissa gamble is here for two-week follow up. Reports current medication regimen provides 50% pain relief. Denies side effects from current medication regimen. Pain is fluctuating. Her worst pain is in her neck and hands. Inquires about medical cannabis. No other concerns at today's OV.No other red flags or neurologic symptoms. Widespread pain (comments) Ms. Raissa gamble is here for initial consult for widespread joint and muscular pain, referred by Dr. Leslie Pal. Her pain began over 10 years ago and has progressively gotten worse and has spread throughout her body. 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 Reports difficulty sleeping, completing daily activities. States her pain makes it challenging for her to care for her 5 children.No other red flags or neurologic symptoms.Completed PRC program at [place]-- says it was very helpful. [facility] on and off over the last two years-- has been helpful. Reports previous x-ray at [facility]. Has taken flexeril, escitalopram, amitriptyline, and others (unspecified) for addtional pain relief. Currently taking nortriptyline and hydrocodone (once per week). States she is getting off gabapentin-- she does not like to be on medications. Reports she occasionally smokes marijuana pain-- interested in medical marijuana.Ms. Feldman would like [facility] to assume managment of pain care. Widespread pain Severity level i s 8. Duration: chronic. Location of the pain is whole body. The patient describes it as sharp, achy, burning, numbness and pins and needles. It occurs persistently. The problem is worsening. Symptom is aggravated by all activities. Relieving factors include walking, stretching, massage, rest, heat, Rx Meds, PT and pool exercise. Pertinent negatives include diarrhea, dyspnea, fever and incontinence (urinary). Functional Status Date Functional Assessmen t No Information Instructions Date Instruction Additional Infor mation No Information Assessments Type Assessment Date No Information Patient Care Teams Name Effective Dates (start - stop) Status Members No Information
== END 2023-01-26 08:48 | disposition home or self-care (01) ==
LOC: RAD 08:47
PROVIDERS: Visit Provider Internal Medicine
DX: Q79.60 Ehlers-Danlos syndrome, unspecified (principal)
CPT/HCPCS: 93306

== ENCOUNTER 2023-02-16 09:47 | Outpatient (CLI) | payer BC, SELFPAY ==
--- OUTSIDE RECORDS SUMMARY | 2023-02-16 09:49 | XMS_ITS | Continuity of Care Document ---
Author Name Unknown Organization [facility] Address 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 [place], [place], [id number] , [place] tel: [phone] [facility] No Information 2 Will Kieran. [address] [facility] [place], [id number] , [place]. tel: [phone] OFFICE/OUTPAT IENT VISIT, EST [facility], [address] [facility] [place], [id number] , [place] tel:[phone] [facility] [place] Widespread pain (chief complaint) Chronic pain syndromeEhlers-D anlos syndromeLong term (current) use of opiate analgesic Dec-0 6-201 8 Hinds Morgan. [address] [place] [address] [address], [place], [place], [id number] , [place]. tel: [phone] Referring Provider: Kieran Casillas, [address] [place] [address], [id number]. tel:[phone] OFFICE/OUTPAT IENT VISIT, [facility], [address] [place] [address], [id number] , [place] tel: [phone] [facility] Widespread pain (chief complaint) Jesse-Danlos syndromeChronic pain syndromeLong term (current) use of opiate analgesic Nov-0 8-201 8 Hinds Morgan. [address] [place] [address] [address], [place], [place], [id number] , [place]. tel: [phone] Referring Provider: Kieran Casillas, [address] [place] [address], [id number]. tel:[phone] OFFICE/OUTPAT IENT VISIT, [facility], [address] [place] [address], [id number] , [place] tel: [phone] [facility] Widespread pain (chief complaint) Jesse-Danlos syndromeChronic pain syndrome Oct-1 0-201 8 Amos Henry. [employer], [address], [place], [address], [place]. tel: [phone] Referring Provider: Kieran Casillas, [address] [place] [address], [id number]. tel:[phone] OFFICE/OUTPAT IENT VISIT, [facility], [address] [place] [address], [id number] , [place] tel:[phone] [facility] Widespread pain (chief complaint) Chronic pain syndromeEhlers-D anlos syndrome Sep-0 7-201 8 Amos Henry. [employer], [address], [place], [address], [place]. tel:[phone] Referring Provider: Kieran Casillas, [address] [place], [address]. tel:[phone] OFFICE/OUTPAT IENT VISIT, [facility], [address] [place], [place], [id number] , [place] tel:[phone] [facility] [place] Widespread pain (chief complaint) Chronic pain syndromeEhlers-D anlos syndrome 8 Dandre Figueroa. [facility], [address], [place], [address], [place]. tel:[phone] Referring Provider: Junie Kiran, [address], [address]. tel:[phone] Family History Family Member Type Diagnosis Age At Onset Mother Problem (finding) CIVD and Fibromyalgia Father Problem (finding) Arthritis in back and k nees Payers Payer name Insurance type Covered libertarian ID Authoriza tion(s) [facility] [id number] Social History Type Description Quantity Date Captured Comments Sex Female Smoking Status No Information Chief Complaint And Reason For Visit No Information Reason For Referral Reason For Referral No Information Plan Of Treatment Date Type Action Status Future Order: Lab Order COMPLIAN CE DRUG ANALYSIS, URINE, WITH MED REPORT ([id number]), Ordered on: Ordered Future Order: Lab Order COMPLIAN CE DRUG ANALYSIS, URINE, WITH MED REPORT ([id number]), Ordered on: Ordered History Of Present Illness Encounter Date Complaint History Of Prese nt Illness Widespread pain (comments) Jimmy jesus is here today for a followup and medication refill. She presents with no medications-6 tablets short. States she may have taken more medication than prescribed once since last OV which she believes is why she is coming up short today. She also continues to utilize medical cannabis, including the topical Parisa during the day and topical [place] at night. States she primarily uses the creams and oils on her hands, back, knees, ankles, feet. Patient is not accompanied today and has no further questions or other concerns. Widespread pain Severity level i s 6. [...] fatigue, fever and incontinence (urinary). Widespread pain Severity level i s 7. [...] and medication refill. She presents with #2 [place]- on track. She reports recent fall about [...] concerns. Widespread pain Severity level i s 8. [...] diarrhea, fever and incontinence (urinary). Widespread pain (comments) [...] flags or neurologic symptoms.Completed PRC program at [place]-- says it was very helpful. [facility]went [facility] on and off over the last two years-- has been helpful. Reports previous x-ray at [facility]. Has taken flexeril, escitalopram, amitriptyline, and others (unspecified) for addtional pain relief. Currently taking nortriptyline and hydrocodone (once per week). States she is getting off gabapentin-- she does not like to be on medications. Reports she occasionally smokes marijuana pain-- interested in medical marijuana.Ms. Feldman would like [facility] to assume managment of pain care. Widespread [...]
[2023-02-17 10:50] LABS: Strep B DNA Probe NEGATIVE (Negative)
[2023-02-17 10:51] LABS: Strep B Pen/Amox Allergy No
== END 2023-02-16 09:48 | disposition home or self-care (01) ==
LOC: NFLDREF 09:47
PROVIDERS: Visit Provider Advanced Practice Midwife
DX: Z34.93 Encounter for supervision of normal pregnancy, unspecified, third trimester (principal); Z3A.36 36 weeks gestation of pregnancy
CPT/HCPCS: 87081; 87653

== ENCOUNTER 2023-03-18 05:39 | Inpatient (IN) | payer BC, SELFPAY ==
[2023-03-18] VITALS (15 sets, daily range): BP systolic 100–121; BP diastolic 63–84; PULSE 66–100; RESP 16–18; TEMP 36.7–37.4; O2SAT 95–98; BMI 27.6
--- OUTSIDE RECORDS SUMMARY | 2023-03-18 04:56 | XMS_ITS | Continuity of Care Document ---
Author Name Unknown Organization [facility] Address [address] [facility] [place] [address] Phone Care Team Providers Care Emergency Department Coordinator Name Role Phone Will MD SORIA, Kieran [...] Diagnoses Date Provider Providers Copied on Encounter [facility], [address] [facility] [place], [id number] , [place] tel: [phone] [facility] No Information 2 Will Kieran. [address] [facility] [place], [id number] , [place]. tel: [phone] OFFICE/OUTPAT IENT VISIT, EST [facility], [address] [facility] [place], [id number] , [place] tel:[phone] [facility] [place] Widespread pain (chief complaint) Chronic pain syndromeEhlers-D anlos syndromeLong term (current) use of opiate analgesic Dec-0 6-201 8 Hinds Morgan. [address] [place] [address] [address], [place], [place], [id number] , [place]. tel: [phone] Referring Provider: Kieran Casillas, [address] [place] [address], [address]. tel:[phone] OFFICE/OUTPAT IENT VISIT, [facility], [address] [place] [address], [id number] , [place] tel: [phone] [facility] Widespread pain (chief complaint) Jesse-Danlos syndromeChronic pain syndromeLong term (current) use of opiate analgesic Nov-0 8-201 8 Hinds Morgan. [address] [place] [address] [address], [place], [place], [id number] , [place]. tel: [phone] Referring Provider: Kieran Casillas, [address] [place] [address], [address]. tel:[phone] OFFICE/OUTPAT IENT VISIT, [facility], [address] [place] [address], [id number] , [place] tel: [phone] [facility] Widespread pain (chief complaint) Jesse-Danlos syndromeChronic pain syndrome Oct-1 0-201 8 Amos Henry. [employer], [address], [place], [address], [place]. tel: [phone] Referring Provider: Kieran Casillas, [address] [place] [address], [address]. tel:[phone] OFFICE/OUTPAT IENT VISIT, [facility], [address] [place] [address], [id number] , [place] tel:[phone] [facility] Widespread pain (chief complaint) Chronic pain syndromeEhlers-D anlos syndrome Sep-0 7-201 8 Amos Henry. [employer], [address], [place], [address], [place]. tel:[phone] Referring Provider: Kieran Casillas, [address] [place], [address]. tel:[phone] OFFICE/OUTPAT IENT VISIT, [facility], [address] [place], [place], [id number] , [place] tel:[phone] [facility] [place] Widespread pain (chief complaint) Chronic pain syndromeEhlers-D anlos syndrome 8 Dandre Figueroa. [facility], [address], [place], [address], [place]. tel:[phone] Referring Provider: Junie Kiran, [address], [address]. tel:[phone] Family History Family Member Type Diagnosis Age At Onset Mother Problem (finding) CIVD and Fibromyalgia Father Problem (finding) Arthritis in back and k nees Payers Payer name Insurance type Covered republican ID Authoriza tion(s) [facility] [id number] Social History Type Description Quantity Date Captured Comments Sex Female Smoking Status No Information Chief Complaint And Reason For Visit No Information Reason For Referral Reason For Referral No Information Plan Of Treatment Date Type Action Status Future Order: Lab Order COMPLIAN CE DRUG ANALYSIS, URINE, WITH MED REPORT ([id number]), Ordered on: Ordered Future Order: Lab Order COMPLIAN CE DRUG ANALYSIS, URINE, WITH MED REPORT ([id number]), Ordered on: Ordered History Of Present Illness [...] topical Parisa during the day and topical [place] at night. States she primarily uses the creams and oils on her hands, back, knees, ankles, feet. Patient is not accompanied today and has no further questions or other concerns. Widespread pain (comments) Jimmy jesus is here today for a followup and medication refill. She presents with #2 [place]- on track. She reports recent fall about [...] include diarrhea, dyspnea, fever and incontinence (urinary). Widespread pain (comments) [...] flags or neurologic symptoms.Completed PRC program at [place]-- says it was very helpful. [facility]went [facility] on and off over the last two years-- has been helpful. Reports previous x-ray at [facility]. Has taken flexeril, escitalopram, amitriptyline, and others (unspecified) for addtional pain relief. Currently taking nortriptyline and hydrocodone (once per week). States she is getting off gabapentin-- she does not like to be on medications. Reports she occasionally smokes marijuana pain-- interested in medical marijuana.Ms. Feldman would like [facility] to assume managment of pain care. Functional Status Date Functional Assessmen t No Information Instructions Date Instruction Additional Infor mation No Information Assessments Type Assessment Date No Information Patient Care Teams Name Effective Dates (start - stop) Status Members No Information
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
--- NOTE | 2023-03-18 08:46 | W.PM.VAGDE_ITS ---
OB Procedure Vag Delivery Mother Details Mother Details: The patient is a 32 year-old, 4, now Para 3, admitted on 03/18/23 at 40.2 weeks gestation. : 4 Para: 3 Weeks Gestation: 40.2 Admission Date: 03/18/23 Additional Details Amniotic Membrane Status: SROM Amniotic Membrane Rupture Date: 03/18/23 Amniotic Membrane Rupture Time: 08:17 Amniotic Membrane Fluid Description: Clear Analgesia/Anesthesia Type: None Waterbirth: Yes Pitcoin: No Intrapartal Events: None Labor Onset: 04:00 Complete: 08:03 (assummed, no SVE done) Pushin:05 Heart: heart tones during second stage were WNL by doppler Delivery Details Delivery Date: 03/18/23 Delivery Time: 08:19 Route of delivery: Infant Gender: Male Infant Viability: Alive; Heart Rate Present Position at Delivery: OA Delivery Details: Called to room, Protestant feeling increased pressure. She tried various positions in the tub to facilitate labor at that time. Spontaneous pushing then noted. She turned to hands and knees where she continued to push. At 0819 a viable?male delivered in vertex OA presentation over intact perineum via spontaneous vaginal?delivery. ? was placed on maternal abdomen after Chrstian was assisted to help turn around, and baby was passed under her leg. ?Cord was clamped and cut after a 5+ minute delay.? Nose and mouth were bulb suctioned.? Infant weight pending. ? 7 at 1 minute and 9 at 5 minutes. ?Shoulder dystocia: no. ?Nuchal cord: no. Placenta delivered spontaneously and complete at 0833 with a 3 vessel cord. Membranes slowly twisted and teased out w/ ring forceps. Mother and were stable after?delivery. Lacerations:? 1st degree, not bleeding, not repaired Blood loss: 50 mL in bag, 150 in tub = 200 ml Blood loss measurement type: QBL?& EBL Sponge and needles counts are correct. 1 Minute Interval Total Score: 7 5 Minute Interval Total Score: 9 Additional Details Shoulder Dystocia: No Placenta Delivery Time: 08:33 Placental Delivery Description: Spontaneous Procedure Done: Global Laceration: Perineal - 1st Degree (Not bleeding, not repaired) Blood Loss Measurement Type: EBL Bakri Used: No Sponge/Need Count Correct: Yes Cord Vessel Description: 3 Vessels Event Summary Status: Mother and were stable after delivery. Disposition: floor
[2023-03-19 00:37] VITALS: BP 99/67; PULSE 73; RESP 16; TEMP 37.1; O2SAT 96
[2023-03-19 05:27] VITALS: BP 100/69; PULSE 75; RESP 16; TEMP 36.7; O2SAT 96
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
[2023-03-19 08:08] VITALS: BP 96/69; PULSE 77; RESP 18; TEMP 37.1; O2SAT 97
[2023-03-19] MEDS: DOCUSATE SODIUM 100 MG CAPSULE PO (08:13)
--- NOTE | 2023-03-19 09:50 | PC.SOCIAL ---
Addendum entered by ELY Pete 03/19/23 11:09: Received call from RN stating that another nurse had noted possible stressed relationships with extended family. Provided counselling/mental health resources to be included in discharge packet. Original Note: Social work: Per RN, social work referral was sent in error. No social work needs.
== END 2023-03-19 11:45 | disposition home or self-care (01) | DRG 560 ==
LOC: OB OUT 03-20 09:33
PROVIDERS: Admitting Provider Advanced Practice Midwife; Visit Provider Advanced Practice Midwife
DX: O99.892 Other specified diseases and conditions complicating childbirth (principal); Q79.62 Hypermobile Ehlers-Danlos syndrome; Z91.419 Personal history of unspecified adult abuse; O70.1 Second degree perineal laceration during delivery; O99.344 Other mental disorders complicating childbirth; F41.8 Other specified anxiety disorders; M79.7 Fibromyalgia; G89.29 Other chronic pain; Z3A.40 40 weeks gestation of pregnancy; Z37.0 Single live birth
CPT/HCPCS: 99213; A9270

== ENCOUNTER 2023-04-08 04:33 | Emergency (ER) | payer BC, SELFPAY ==
[2023-04-08 04:43] VITALS: BP 109/72; PULSE 105; RESP 16; TEMP 37.5; O2SAT 99; BMI 25.5
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
[2023-04-08 05:02] LABS: Appearance Urine Clear (Clear); Bilirubin Urine Negative (Negative); Blood Urine 3+ (Negative); Color Urine Yellow (Yellow); Glucose Urine Negative (Negative); Ketones Urine Negative (Negative); Leukocyte Esterase Urine 3+ (Negative); Nitrite Urine Negative (Negative); Protein Urine Negative (Negative); Urobilinogen Urine 0.2 (0.2-1.0)
[2023-04-08 05:21] LABS: Basophils Absolute Auto 0.01 K/uL (0.00-0.30); Basophils Percent Auto 0.1 % (0.0-3.0); Eosinophils Absolute Auto 0.09 K/uL (0.00-0.50); Hematocrit 38.5 % (33.0-51.0); Hemoglobin* 12.9 gm/dL (12.0-16.0); Immature Granulocytes Abs Auto 0.08 K/uL (0.00-0.30); Immature Granulocytes Pct Auto 0.9 %; Lymphocytes Percent Auto 15.8 % (20-44); Mean Corpuscular HGB Conc 34 gm/dL (32-36); Mean Corpuscular Hemoglobin 31 pg (26-34); Mean Corpuscular Volume 91 fL (80-100); Monocytes Percent Auto 4.9 % (0.0-11.0); Neutrophils Percent Auto 77.3 % (42.0-72.0); Platelet Count* 170 K/uL (140-440); RDW Coefficient of Variation % 12.4 % (11.5-15.5); Red Blood Count 4.22 m/uL (4.00-5.20); White Blood Count* 8.92 K/uL (4.50-11.00)
[2023-04-08 05:24] LABS: Slide Review Reflex No
[2023-04-08 05:34] LABS: Bacteria Urine Few; RBC Urine 0-2 (0-2); Squamous Epithelial Cell Urine Few (None-Few); WBC Urine 0-2 (0-5)
--- OUTSIDE RECORDS SUMMARY | 2023-04-08 05:34 | XMS_ITS | Continuity of Care Document ---
Author Name Unknown Organization [facility] Address [address] [facility] [address] [place] [address] Phone Care Team Providers Care Corporate Banking Officer Name Role Phone Will MD SORIA, Kieran [...] Diagnoses Date Provider Providers Copied on Encounter [facility], [address] [facility] [place], [place], [id number] , [place] tel: [phone] [facility] No Information 2 Will Kieran. [address] [facility] [place], [place], [id number] , [place]. tel: [phone] OFFICE/OUTPAT IENT VISIT, EST [facility], [address] [facility] [place], [id number] , [place] tel:[phone] [facility] [place] Widespread pain (chief complaint) Chronic pain syndromeEhlers-D anlos syndromeLong term (current) use of opiate analgesic Dec-0 6-201 8 Hinds Morgan. [address] [place] [address] [address], [place], [place], [id number] , [place]. tel: [phone] Referring Provider: Kieran Casillas, [address] [place] [address], [id number]. tel:[phone] OFFICE/OUTPAT IENT VISIT, [facility], [address] [place] [address], [id number] , [place] tel: [phone] [facility] Widespread pain (chief complaint) Jesse-Danlos syndromeChronic pain syndromeLong term (current) use of opiate analgesic Nov-0 8-201 8 Hinds Morgan. [address] [place] [address] [address], [place], [place], [id number] , [place]. tel: [phone] Referring Provider: Kieran Casillas, [address] [place] [address], [address]. tel:[phone] OFFICE/OUTPAT IENT VISIT, [facility], [address] [place] [address], [id number] , [place] tel: [phone] [facility] Widespread pain (chief complaint) Jesse-Danlos syndromeChronic pain syndrome Oct-1 0-201 8 Amos Henry. [facility], [address], [place], [address], [place]. tel: [phone] Referring Provider: Kieran Casillas, [address] [place] [address], [id number]. tel:[phone] OFFICE/OUTPAT IENT VISIT, [facility], [address] [place] [address], [id number] , [place] tel:[phone] [facility] Widespread pain (chief complaint) Chronic pain syndromeEhlers-D anlos syndrome Sep-0 7-201 8 mAos Henry. [facility], [address], [place], [address], [place]. tel:[phone] Referring Provider: Kieran Casillas, [address] [place], [address]. tel:[phone] OFFICE/OUTPAT IENT VISIT, [facility], [address] [place], [place], [id number] , [place] tel:[phone] [facility] [place] Widespread pain (chief complaint) Chronic pain syndromeEhlers-D anlos syndrome 8 Dandre Figueroa. [facility], [address], [place], [address], [place]. tel:[phone] Referring Provider: Junie Kiran, [address], [address]. tel:[phone] Family History Family Member Type Diagnosis Age At Onset Mother Problem (finding) CIVD and Fibromyalgia Father Problem (finding) Arthritis in back and k nees Payers Payer name Insurance type Covered alliance party ID Authoriza tion(s) [facility] [id number] Social History Type Description Quantity Date Captured Comments Sex Female Smoking Status No Information Chief Complaint And Reason For Visit No Information Reason For Referral Reason For Referral No Information Plan Of Treatment Date Type Action Status Future Order: Lab Order COMPLIAN CE DRUG ANALYSIS, URINE, WITH MED REPORT ([id number]), Ordered on: Ordered Future Order: Lab Order COMPLIAN CE DRUG ANALYSIS, URINE, WITH MED REPORT ([id number]), Ordered on: Ordered History Of Present Illness [...] topical [place]a during the day and topical [place] at night. States she primarily uses the creams and oils on her hands, back, knees, ankles, feet. Patient is not accompanied today and has no further questions or other concerns. Widespread pain (comments) Jimmy jesus is here today for a followup and medication refill. She presents with #2 Nakina- on track. She reports recent fall about [...] flags or neurologic symptoms.Completed PRC program at [place]-- says it was very helpful. [facility]went [facility] on and off over the last two years-- has been helpful. Reports previous x-ray at [facility]. Has taken flexeril, escitalopram, amitriptyline, and others (unspecified) for addtional pain relief. Currently taking nortriptyline and hydrocodone (once per week). States she is getting off gabapentin-- she does not like to be on medications. Reports she occasionally smokes marijuana pain-- interested in medical marijuana.Ms. Feldman would like [facility] to assume managment of pain care. Functional Status Date Functional Assessmen t No Information Instructions Date Instruction Additional Infor mation No Information Assessments Type Assessment Date No Information Patient Care Teams Name Effective Dates (start - stop) Status Members No Information
[2023-04-08 06:00] LABS: PCR FLU A Negative PCR FLU A (Negative); PCR FLU B Negative PCR FLU B (Negative); PCR RSV Negative PCR RSV (Negative)
[2023-04-08 06:01] LABS: SARS PCR* Negative SARS-CoV-2 (Negative)
== END 2023-04-08 05:40 | disposition home or self-care (01) ==
LOC: ED 05:31
PROVIDERS: Emergency Provider Internal Medicine
DX: N39.0 Urinary tract infection, site not specified (principal)
CPT/HCPCS: 36415; 81001; 85025; 87086; 87631; 99283

== ENCOUNTER 2023-12-11 09:29 | Outpatient (CLI) | payer BC, SELFPAY ==
--- OUTSIDE RECORDS SUMMARY | 2023-12-11 09:35 | XMS_ITS | Clinical Summary ---
Author Name Unknown Organization [facility] Address [place], [place] [address] Care Team Providers Care Pot Fisher Name Role Phone [place] Primary Care Provider Unavail able Allergies Active Allergy Reactions Criticality Noted Date Comments Sulfa (Sulfonamide Antibiotics) Rash 06/30 Medications Medication Sig Dispensed Refills Start Date End Date Status cyclobenzaprine (FLEXERIL) 10 mg tablet Take 1 tablet by mouth 3 times daily. 0 03/08/2015 Active docusate (COLACE) 100 mg capsuleIndications:L eft upper quadrant pain 2 caps 2x per day for one week, then decrease 2 at bedtime for a week, then continue once daily 90 capsule 1 03/08/2015 Active escitalopram oxalate (LEXAPRO) 10 mg tabletIndications:Ge neralized anxiety disorder Take 1 tablet by mouth once daily. 30 tablet 1 03/08/2015 Active Active Problems No known active problems Immunizations Name Administration Dates Next Due Influenza, IIV4 08/28/2014 Family History Medical History Relation Name Comments Arthritis Father Hyperlipidemia Father Hypertension Father Other Mother immune deficien cy Relation Name Status Comments Father Mother Social History Tobacco Use Types Packs/Day Years Used Date Smoking Tobacco: Never Smokeless Tobacco: Never Tobacco Cessation:Counseling Given: Yes Alcohol Use Standard Drinks/Week Comments Yes 0 (1 standard drink = 0.6 oz pur e alcohol) Social Connections Answer Date Recorded Frequency of Communication with Friends and Fami ly Not on file 01/26/2023 Sex and Gender Information Value Date Recorded Sex Assigned at Not on file Gender Identity Not on file Sexual Orientation Not on file Obstetrics History Para Term AB IAB SAB Ectopic Multiple Livin g Live Births 1 Date Outcome GA Total Labor Labor/2nd/3rd Weight Sex Delivery Anes PTL Naa A1 A5 Name Cl in Term Last Filed Vital Signs Vital Sign Reading Time Taken Comments Blood Pressure 101/63 03/08/2015 1:27 PM CDT Pulse 73 03/08/2015 1:27 PM CDT Temperature - - Respiratory Rate - - Oxygen Saturation - - Inhaled Oxygen Concentration - - Weight 53.8 kg (118 lb 9.6 oz) 03/08/2015 1:27 P M CDT Height 156.5 cm (5' 1.61) 03/08/2015 1:27 PM CD T Body Mass Index 21.96 03/08/2015 1:27 PM CDT Plan of Treatment Health Maintenance Due Date Last Done Comments Tdap 2000 Depression screening for age 12+ 2001 HIV for age 15-65 2004 BMI (ht and wt on same day) for age 18+ 10/21/2007 Hepatitis C screening for age 18-79 10/21/2007 Tetanus booster 2009 COVID-19 vaccine series (2022- season) 2023 Pap test for age 21-65 10/16/2023 1, 10/15/2020, 09/20/2017, Additional history exists Influenza for age 9-49 03/30/2024 08/28/2014 Pneumococcal series for age 6-64 Aged Out No longer eligible based on patient's age to complete this topic Procedures Procedure Name Priority Date/Time Associated Diagnosis Comments CONCRETE PIPE MAKING MACHINE OPERATOR THIN PREP PAP SCREEN IMAGED Routine 10/15/2020 8:30 AM CDT from Last 3 Months or Most Recently Relevant to Health Maintenance Results * CONCRETE PIPE MAKING MACHINE OPERATOR THIN PREP PAP SCREEN IMAGED (10/15/2020 8:30 AM CDT) Case Report Gynecologic Cytology Report ? Case: [id number] ? Authorizing Provider: ??Unknown, Doctor ?Collected: ? 10/15/2020 0830 ? Ordering Location: ? [facility] ?Received: ?10/18/2020 0958 ? First Screen: ?BacAlbina simms ? Specimen: ?CONCRETE PIPE MAKING MACHINE OPERATOR ThinPrep Vial Screening, Cervical/Vaginal ? 10/22/2020 4:04 PM CDT [facility] ENTRAL LABORATORY INTERPRETATION/ RESULT NEGATIVE FOR INTRAEPITHELIAL LESION OR MALIGNANCY (NIL) (none) 10/22/2020 4:04 PM CDT [facility] ENTRAL LABORATORY IMEN ADEQUACY Satisfactory for evaluation Endocervical component present 10/22/2020 4:04 PM CDT [facility] ENTRAL LABORATORY HPV REQUEST HPV and PAP 10/22/2020 4:04 PM CDT [facility]- ENTRAL LABORATORY Date of LMP 09/27/2020 10/22/2020 4:04 PM CDT [facility] ENTRAL LABORATORY Last Pap Date 09/20/2017 10/22/2020 4:04 PM CDT [facility] ENTRAL LABOR[facility] Last Pap Result NIL 4:04 PM CDT [facility] ENTRAL LABORATORY Menstrual Status 10/22/2020 4:04 PM CDT [facility] ENTRAL LABORATORY Comment:IUD Additional Information 10/22/2020 4:04 PM CDT [facility] ENTRAL LABORATORY Comment: Interpreted at [facility] [address] [facility], Central Laboratory - [address], [place] [address] Automated Review Successful 10/22/2020 4:04 PM CDT [facility] ENTRAL LABORATORY Comment:Specimen processed s uccessfully by automated women's basketball coach device, [employer] Imaging System, [employer] ANCILLARY TESTING CONCRETE PIPE MAKING MACHINE OPERATOR HPV Ordered, Please see separate report 10/22/2020 4:04 PM CDT [facility] [employer] [facility] ENTRAL LABORATORY Note The pap test is a screening technique, not a diagnostic procedure. It is used primarily to screen for squamous cancers and precursor lesions. Published studies have shown that it is subject to both false negative and false positive results. The pap test should not be used as the sole means to diagnose or exclude pre-malignant and malignant lesions. 10/22/2020 4:04 PM CDT [facility]- ENTRRI LABORATORY Other (Cervical/Vagina l) 10/15/2020 8:30 AM CDT 10/18/2020 9:58 AM CDT Doctor Unknown PATHOLOGY/CYTOLOGY [facility] [employer] [facility]-CENTRAL LABORATORY [address] [place] [address], [place] from Last 3 Months or Most Recently Relevant to Health Maintenance Care Teams Pot Fisher Relationship Specialty Start Date End Date Chris Ferrari PCP - General 07/02/17
--- OUTSIDE RECORDS SUMMARY | 2023-12-11 09:35 | XMS_ITS | Clinical Summary ---
Author Name Unknown Organization [facility] Address [address] [address] Care Team Providers Care Teacher Physically Impaired Name Role Phone Junie Da Silva MD Primary Care Provider Source Comments You are receiving this document as you are listed as the primary care provider,follow-up provider, or the patient has been referred to you for consultation.This is in compliance with the Medicare andMedicaid EHR Incentive Program,which states Providers who transition their patient to another setting of careor provider of care or refers their patient to another provider of care shouldprovide summary care record for each transition of care or referral. [facility] Allergies Active Allergy Reactions Criticality Noted Date Comments Sulfa Antibiotics Rash 03/30/2016 Medications Medication Sig Dispensed Refills Start Date End Date Status gabapentin (NEURONTIN) 300 MG capsuleIndications:Analisa joana osteoarthritis of both hands 02/20/2018 Active drug not in computerIndications:Sp orts Induced Inhaler Indications: Sports Induced Inhaler Active nortriptyline (PAMELOR) 10 MG capsuleIndications:Fib romyalgia Take 1 Capsule by mouth every evening. 60 Capsule 02/21/2018 Active lidocaine-prilocaine (EMLA) 2.5-2.5 % creamIndications:Prima ry osteoarthritis of both hands Apply to affected areas up to 4 times daily. Apply with a glove. 30 g 3 02/21/2018 Active diclofenac (VOLTAREN) 1 % gelIndications:Primary osteoarthritis of both hands Apply up to 2 gm to affected areas up to 4 times daily. 100 g 3 02/21/2018 Active Active Problems Problem Noted Date Diagnosed Date Primary osteoarthritis of both hands 02/21/2018 Depression 04/07/2016 Insomnia 04/07/2016 Fibromyalgia 04/07/2016 Social History Tobacco Use Types Packs/Day Years Used Date Smoking Tobacco: Former Cigarettes Smokeless Tobacco: Never Sex and Gender Information Value Date Recorded Sex Assigned at Not on file Gender Identity Not on file Sexual Orientation Not on file Last Filed Vital Signs Vital Sign Reading Time Taken Comments Blood Pressure 101/62 02/21/2018 9:41 AM CDT Pulse 72 02/21/2018 9:41 AM CDT Temperature 36.8 ??C (98.3 ??F) 04/07/2016 9:11 AM CD T Respiratory Rate - - Oxygen Saturation - - Inhaled Oxygen Concentration - - Weight 53.5 kg (118 lb) 02/21/2018 9:41 AM CDT Height 157.5 cm (5' 2) 02/21/2018 9:41 AM CDT Body Mass Index 21.58 02/21/2018 9:41 AM CDT Plan of Treatment Health Maintenance Due Date Last Done Comments Cervical Cancer Screening Due 1989 Hep C Screening (Preventive Services) 1989 HIV Screening (Preventive Services) 2005 Adult Preventive Visit 10/21/2007 DTaP/Tdap/Td (1 - Tdap) 2008 HepB (1) 2008 COVID-19 Vaccine ( - 2022-2 4 season) 2023 Influenza (Season Ended) 2024 Zoster/Shingles (1 of 2) 10/21/2039 HPV Vaccine Aged Out No longer eligi ble based on patient's age to complete this topic HepA Aged Out No longer eligi ble based on patient's age to complete this topic Hib Aged Out No longer eligi ble based on patient's age to complete this topic IPV (Polio) Aged Out No longer eligi ble based on patient's age to complete this topic MCV4 Aged Out No longer eligi ble based on patient's age to complete this topic Pneumococcal Aged Out No longer eligi ble based on patient's age to complete this topic Care Teams Teacher Physically Impaired Relationship Specialty Start Date End Date Junie Da Silva MD [address] [place] [address] PCP - General 03/03/16
== END 2023-12-11 09:30 | disposition home or self-care (01) ==
PROVIDERS: Visit Provider Advanced Practice Midwife
DX: O20.9 Hemorrhage in early pregnancy, unspecified (principal)
CPT/HCPCS: 84702; 86850; 86900; 86901

== ENCOUNTER 2023-12-13 11:49 | Outpatient (CLI) | payer BC, SELFPAY ==
--- OUTSIDE RECORDS SUMMARY | 2023-12-14 09:07 | XMS_ITS | Continuity of Care Document ---
Author Name Unknown Organization [facility] g[facility] Address [address] [facility] [address] [place] [address] Phone Care Team Providers Care Certified Maintenance Welder Name Role Phone Will MD SORIA, Kieran [...] Diagnoses Date Provider Providers Copied on Encounter [facility], [address] [facility] [place], [id number] , [place] tel: [phone] [facility] No Information 2 Will Kieran. [address] [facility] [place], [place], [id number] , [place]. tel: [phone] OFFICE/OUTPAT IENT VISIT, EST [facility], [address] [facility] [place], [place], [id number] , [place] tel:[phone] [facility] [place] Widespread pain (chief complaint) Chronic pain syndromeEhlers-D anlos syndromeLong term (current) use of opiate analgesic Dec-0 6-201 8 Hinds Morgan. [address] [place] [address] [address], [place], [place], [id number] , [place]. tel: [phone] Referring Provider: Kieran Casillas, [address] [place] [address], [address]. tel:[phone] OFFICE/OUTPAT IENT VISIT, [facility], [address] [place] [address], [id number] , [place] tel: [phone] [facility] Widespread pain (chief complaint) Jesse-Danlos syndromeChronic pain syndromeLong term (current) use of opiate analgesic Nov-0 8-201 8 Hinds Morgan. [address] [place] [address] [address], [place], [place], [id number] , [place]. tel: [phone] Referring Provider: Kieran Casillas, [address] [place] [address], [address]. tel:[phone] OFFICE/OUTPAT IENT VISIT, [facility], [address] [place] [address], [id number] , [place] tel: [phone] [facility] Widespread pain (chief complaint) Jesse-Danlos syndromeChronic pain syndrome Oct-1 0-201 8 Amos Henry. [employer], [address], [place], [address], [place]. tel: [phone] Referring Provider: Kieran Casillas, [address] [place] [address], [address]. tel:[phone] OFFICE/OUTPAT IENT VISIT, [facility], [address] [place] [address], [id number] , [place] tel:[phone] [facility] Widespread pain (chief complaint) Chronic pain syndromeEhlers-D anlos syndrome Sep-0 7-201 8 Amos Henry. [employer], [address], [place], [address], [place]. tel:[phone] Referring Provider: Kieran Casillas, [address] [place], [address]. tel:[phone] OFFICE/OUTPAT IENT VISIT, [facility], [address] [place], [place], [id number] , [place] tel:[phone] [facility] [place] Widespread pain (chief complaint) Chronic pain syndromeEhlers-D anlos syndrome 8 Dandre Figueroa. [facility], [address], [place], [address], [place]. tel:[phone] Referring Provider: Junie Kiran, [address], [address]. tel:[phone] Family History Family Member Type Diagnosis Age At Onset Mother Problem (finding) CIVD and Fibromyalgia Father Problem (finding) Arthritis in back and k nees Payers Payer name Insurance type Covered democrat ID Authoriza tion(s) [facility] [id number] Social History Type Description Quantity Date Captured Comments Sex Female Smoking Status No Information Chief Complaint And Reason For Visit No Information Reason For Referral Reason For Referral No Information Plan Of Treatment Date Type Action Status Future Order: Lab Order COMPLIAN CE DRUG ANALYSIS, URINE, WITH MED REPORT ([id number]), Ordered on: Ordered Future Order: Lab Order COMPLIAN CE DRUG ANALYSIS, URINE, WITH MED REPORT ([id number]), Ordered on: Ordered History Of Present Illness [...] topical [place]a during the day and topical [place] at night. States she primarily uses the creams and oils on her hands, back, knees, ankles, feet. Patient is not accompanied today and has no further questions or other concerns. Widespread pain (comments) Jimmy jesus is here today for a followup and medication refill. She presents with #2 [place]- on track. She reports recent fall about [...] flags or neurologic symptoms.Completed PRC program at [place]-- says it was very helpful. [facility] on and off over the last two years-- has been helpful. Reports previous x-ray at [facility]. Has taken flexeril, escitalopram, amitriptyline, and others (unspecified) for addtional pain relief. Currently taking nortriptyline and hydrocodone (once per week). States she is getting off gabapentin-- she does not like to be on medications. Reports she occasionally smokes marijuana pain-- interested in medical marijuana.Ms. Feldman would like [facility] to assume managment of pain care. Widespread [...]
--- OUTSIDE RECORDS SUMMARY | 2023-12-14 09:07 | XMS_ITS | Clinical Summary ---
Author Name Unknown Organization [employer] [facility] Address [place], [place] [address] Care Team Providers Care Food Service Counter Clerk Name Role Phone [place] Primary Care Provider Unavail able Allergies Active [...] Procedure Name Priority Date/Time Associated Diagnosis Comments SEWING MACHINE OPERATOR THIN PREP PAP SCREEN IMAGED Routine 10/15/2020 8:30 AM CDT from Last 3 Months or Most Recently Relevant to Health Maintenance Results * SEWING MACHINE OPERATOR THIN PREP PAP SCREEN IMAGED (10/15/2020 8:30 AM CDT) Case Report Gynecologic Cytology Report ? Case: [id number] ? Authorizing Provider: ??Unknown, Doctor ?Collected: ? 10/15/2020 0830 ? Ordering Location: ? [facility] ?Received: ?10/18/2020 0958 ? First Screen: ?BacAlbina simms ? Specimen: ?SEWING MACHINE OPERATOR ThinPrep Vial Screening, Cervical/Vaginal ? 10/22/2020 4:04 PM CDT [facility] ENTRAL LABORATORY INTERPRETATION/ RESULT NEGATIVE FOR INTRAEPITHELIAL LESION OR MALIGNANCY (NIL) (none) 10/22/2020 4:04 PM CDT [facility] ENTRAL LABORATORY IMEN ADEQUACY Satisfactory for evaluation Endocervical component present 10/22/2020 4:04 PM CDT [facility] ENTRAL LABORATORY HPV REQUEST HPV and PAP 10/22/2020 4:04 PM CDT [facility]- ENTRAL LABORATORY Date of LMP 09/27/2020 10/22/2020 4:04 PM CDT [facility] ENTR[facility] LABORATORY Last Pap Date 09/20/2017 10/22/2020 4:04 PM CDT [facility] ENTRAL LABORATORY Last Pap Result NIL 4:04 PM CDT [facility] EN[facility]AL LABORATORY Menstrual Status 10/22/2020 4:04 PM CDT [facility] ENTRAL LABORATORY Comment:IUD Additional Information 10/22/2020 4:04 PM CDT [facility] ENTRAL LABORATORY Comment: [facility]ed at [facility] - [address], [place] [address] Automated Review Successful 10/22/2020 4:04 PM CDT [facility] ENTRAL LABORATORY Comment:Specimen processed s uccessfully by automated broadcast correspondent device, [employer] Imaging System, [employer] ANCILLARY TESTING SEWING MACHINE OPERATOR HPV Ordered, Please see separate report 10/22/2020 4:04 PM CDT [facility] [employer] [facility] ENTRAL LABORATORY Note The pap test [...] and malignant lesions. 10/22/2020 4:04 PM CDT [facility]AT[facility] Other (Cervical/Vagina l) 10/15/2020 8:30 AM CDT 10/18/2020 9:58 AM CDT Doctor Unknown PATHOLOGY/CYTOLOGY [facility] [employer] [facility]-CENTRAL LABORATORY [address] [place] [address], [place] from Last 3 Months or Most Recently Relevant to Health Maintenance Care Teams Food Service Counter Clerk Relationship Specialty Start Date End Date Chris Ferrari PCP - General 07/02/17
--- OUTSIDE RECORDS SUMMARY | 2023-12-14 09:07 | XMS_ITS | Clinical Summary ---
Author Name Unknown Organization [facility] Address [address], [place] [address] Care Team Providers Care Sailing Master Name Role Phone Junie Da Silva MD [...] for each transition of care or referral. [facility] Allergies Active Allergy Reactions Criticality Noted [...] age to complete this topic Care Teams Sailing Master Relationship Specialty Start Date End Date Junie Da Silva MD [address] [place] [address] PCP - General 03/03/16
== END 2023-12-13 11:50 | disposition home or self-care (01) ==
LOC: NFLDREF 12-14 09:04
PROVIDERS: Visit Provider Advanced Practice Midwife
DX: O20.9 Hemorrhage in early pregnancy, unspecified (principal)
CPT/HCPCS: 84702

== ENCOUNTER 2023-12-15 21:12 | Emergency (ER) | payer BC, SELFPAY ==
[2023-12-15 21:24] VITALS: BP 125/91; PULSE 87; RESP 16; TEMP 36.8; O2SAT 99; BMI 25.5
--- NOTE | 2023-12-15 21:40 | US_ITS ---
Patient: GOPAL CUEVAS Facility:?[facility] RIS Patient ID:?[id number] Site Patient ID:?[id number]. Site :?[id number] Study:?US-OB Pelvis OB TV-12/15/2023 10:57:52 PM Ordering Physician:?SANKET KUHN D.O. Final Report: INDICATION: Vaginal bleeding. TECHNIQUE: Ultrasound OB pelvis transvaginal. Real-time groves-scale imaging of the pelvis was performed. COMPARISON: None. FINDINGS: There is a single intrauterine gestation. The embryo demonstrates a regular cardiac rate measuring 139 beats per minute. The embryo`s crown rump length measurement of 0.8 cm corresponds to a gestational age of 6 weeks 5 days with a sonographic due date of 08/04/2024. There is a normal appearing yolk sac. There are no gross abnormalities noted within the embryo at this early state of development. The placenta has not yet developed. There is no sign of perigestational hemorrhage. The ovaries are of normal size. There is a corpus luteum in the left ovary. Left paraovarian cyst measuring 3.7 x 2.7 x 4.1 cm. There are no suspicious fluid collections noted in the cul-de-sac. IMPRESSION: 1. Single viable intrauterine with estimated gestational age of 6 weeks 5 days. No acute abnormalities seen. 2. Large left paraovarian cyst. Dictated by Tk Neri MD @ 12/15/2023 11:25:34 PM Signed by:?Tk Neri MD @12/15/2023 11:25:34 PM (Electronic Signature)
[2023-12-15 21:42] LABS: Appearance Urine Cloudy (Clear); Bilirubin Urine Negative (Negative); Blood Urine Negative (Negative); Color Urine Yellow (Yellow); Glucose Urine Negative (Negative); Ketones Urine Negative (Negative); Leukocyte Esterase Urine Trace (Negative); Nitrite Urine Negative (Negative); Protein Urine Negative (Negative); Urobilinogen Urine 0.2 (0.2-1.0)
--- NOTE | 2023-12-15 21:47 | ED_ITS ---
HPI - General Adult General Date Seen: 12/15/23 Chief complaint: OB/Uterine Contractions Stated complaint: 5 weeks , chills, nausea, body aches Time Seen by Provider: 12/15/23 21:18 Source: patient Mode of arrival: ambulatory Limitations: no limitations History of Present Illness HPI narrative: Patient is a 33-year-old female who has A1 currently 5 weeks presenting to the emergency department for body aches, chills, nausea. Patient states she is having she is chills and body aches that started last night and have been continuing into today. She has some urgency with urination but has not noticed much comes out. Did have frequent UTIs with her last . Has noticed some constipation but did have a bowel movement today. Does admit to mild shortness of breath. Is not currently feeling short of breath. Does states she had bleeding all throughout the week and had her beta HCG done on the 14th and 16th and it was rising. Has not had ultrasound done yet. Also notices right pelvic pain. The bleeding has since subsided with and she does state initially she was having large amount of bleeding. Had a previous miscarriage which at that time she had a large amount of bleeding but had her hCG is lowering and that he saw they diagnosed her with having a miscarriage. Denies chest pain, headache, weakness,, abdominal pain. His have some intermittent nausea but is not currently nauseated. Did feel like she was having fevers last night but no fever today Related Data Home Medications Medication Instructions Recorded Confirmed prenat.vits,betina,inz-qale-ikruj 1 tab PO QDAY 08/04/22 04/09/23 amoxicillin 500 mg capsule 500 mg PO Q8H 04/09/23 04/09/23 Previous Rx's Medication Instructions Recorded docusate sodium 100 mg capsule 100 mg PO DAILY #90 caps 03/19/23 ibuprofen 600 mg tablet 600 mg PO Q6H PRN #60 tabs 03/19/23 Allergies Allergy/AdvReac Type Severity Reaction Status Date / Time Sulfa (Sulfonamide Allergy Rash Verified 04/09/23 12:56 Antibiotics) Review of Systems Status of ROS: Reports: 10 or more systems reviewed and unremarkable except as noted in History and below [facility] Medical History UTI (urinary tract infection) ?N39.0 - Urinary tract infection, site not specified (ICD-10) Spontaneous in first trimester (02/2022) ?O03.9 - Complete or unspecified spontaneous without complication (ICD-10) Infection due to severe acute respiratory syndrome coronavirus 2 (SARS-CoV-2) ?U07.1 - COVID-19 (ICD-10) Spasm of cervical paraspinous muscle ?M62.838 - Other muscle spasm (ICD-10) Radiculitis ?M54.10 - Radiculopathy, site unspecified (ICD-10) depression ?F53.0 - depression (ICD-10) History of vaginal delivery Surgical History [place] teeth extracted ?K08.409 - Partial loss of teeth, unspecified cause, unspecified class (ICD- 10) History of right knee surgery (2008) ?Z98.890 - Other specified postprocedural states (ICD-10) Family History Brother Alcoholism Anxiety disorder Family/Other Alcoholism Father Anxiety disorder Diabetes Family history of early CAD Arthritis Mother Anxiety disorder Fibromyalgia Immune deficiency disorder Family/Other Anxiety disorder Sister Asthma FH: Down syndrome Paternal Grandfather Family history of stroke Other Migraine Social History Narrative: SOCIAL Education: High School/some college 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 Special Diet: Denies Ok with a blood transfusion: yes Culture or yazdanism beliefs: Confucianist - would want a shafting worker called in emergency RISK [employer]CT[employer] Exercise Times/wk: not so much right now Depression/Anxiety: History of both, fairly recent - gotten better over last 6 month - seeing therapist once a week, not on medications - Pt stated it is working well. Seat Belt Use: Routinely Smoking: Denies past -quit 11 years ago - was smoking a pack a day Alcohol/day: Denies while Caffeine: yes - trying to limit, discussed 200mg limit recommendation Drug Use: Denies past/present Chicken Pox: Yes as a child MRSA: Denies COVID vaccine/boosters: had covid a year ago, declines vaccine at this time Flu vaccine: no What is your current living situation?: I presently have a place to live Problems where you live: no known problems In the past 12 months, utilities in danger of being shut off: no In past 12 months, lack of transportation kept you from medical appts, meetings, work, or getting things needed for daily living: no In the past 12 mos, have been you worried that your food would run out before you had money to buy more?: never true In the past 12 mos, the food you bought just didn't last and you didn't have money to buy more?: never true Smoking Status: Former smoker What tobacco products do you use: cigarettes Smoking quit date/years: <= 15 years ago Do you use any of these nicotine containing products: None Second hand tobacco smoke exposure: No How often do you have a drink containing alcohol: never How often do you have six or more drinks on one occasion: Never AUDIT-C Alcohol total score: 0 Non-prescribed substance use: denies use How often does anyone, including family, friends and others, physically hurt you : never How often does anyone, including family, friends and others, insult or talk down to you: fairly often How often does anyone, including family, friends and others, threaten you with harm: rarely How often does anyone, including family, friends and others, scream or curse at you: fairly often Little interest or pleasure in doing things: several days Feeling down, depressed, or hopeless: several days service: No Exam Narrative: Exam Narrative: Const: Well-nourished, Well-developed, in mild distress Eyes: PERRL, no conjunctival injection, and symmetrical lids HENT: Atraumatic external nose and ears. Moist mucous membranes. Neck: Symmetric, trachea midline, No thyromegaly. CVS: RRR, No murmurs or gallops. Peripheral pulses 2+ and equal in all extremities RESP: Unlabored respiratory effort. Clear to auscultation bilaterally. GI: Nontender/Nondistended, No rebound or guarding. Right lower pelvis tenderness MSK:Extremities w/o deformity, Normal Active ROM Skin: Warm, Dry. No rashes or lesions. Neuro: Normal Muscle tone, No focal neurological deficits. Psych: Awake, Alert, & Oriented x3. Appropriate mood and affect. Const: Vital Signs, click to edit/add: Vital Signs - 24 hr 12/15/23 21:24 Temperature 98.2 F Pulse Rate [Pulse Oximeter] 87 Respiratory Rate 16 Blood Pressure [Ri ght Upper Arm] 125/91 H Pulse Oximetry 99 Oxygen Delivery Me thod Room Air Course Vital Signs Vital signs: Initial Vital Signs Temperature 98.2 F 12/15/23 21:24 Temperature Source Temporal Artery Scan 12/15/23 21:24 Pulse Rate 87 12/15/23 21:24 Respiratory Rate 16 12/15/23 21:24 Blood Pressure 125/91 H 12/15/23 21:24 Blood Pressure Mean 102 12/15/23 21:24 Blood Pressure Position Sitting 12/15/23 21:24 Pulse Oximetry 99 12/15/23 21:24 Oxygen Delivery Method Room Air 12/15/23 21:24 Vital Signs Temperature 98.2 F 12/15/23 21:24 Pulse Rate 87 12/15/23 21:24 Respiratory Rate 16 12/15/23 21:24 Blood Pressure 125/91 H 12/15/23 21:24 Pulse Oximetry 99 12/15/23 21:24 Oxygen Delivery Method Room Air 12/15/23 21:24 Temperature 98.2 F 12/15/23 23:27 Pulse Rate 81 12/15/23 23:27 Respiratory Rate 16 12/15/23 23:27 Blood Pressure 118/74 12/15/23 23:27 Pulse Oximetry 99 12/15/23 23:18 Oxygen Delivery Method Room Air 12/15/23 23:18 Medical Decision Making MDM Narrative Medical decision making narrative: Patient is a 33-year-old female presenting for multiple complaints. Her main complaint was generalized chills, nausea and body aches. Will test for COVID/flu/RSV for this. Will also order a CBC and CMP along with a urinalysis. She is having some urinary symptoms. I am also concerned about her right pelvic pain with history of vaginal bleeding that while has stopped was large amount just a few days ago. Due to that I will do a from ultrasound to look for signs of a ectopic . Patient is not requesting any pain or nausea medicine at this time. Patient will be signed out to my colleague pending imaging and lab work. Lab Data Labs: Lab Results 12/15/23 12/15/23 12/15/23 Range/Units 21:22 21:32 21:48 WBC 11.04 H (4.50-11.00) K/uL RBC 4.20 (4.00-5.20) m/uL Hgb 12.4 (12.0-16.0) gm/dL Hct 37.2 (33.0-51.0) % MCV 89 (80-100) fL MCH 30 (26-34) pg MCHC 33 (32-36) gm/dL RDW Coeff of Taco 12.7 (11.5-15.5) % Plt Count 207 (140-440) K/uL Neut % (Auto) 72.9 H (42.0-72.0) % Lymph % (Auto) 19.4 L (20-44) % [place] % (Auto) 6.1 (0.0-11.0) % Eos % (Auto) 1.4 (0.0-7.0) % Baso % (Auto) 0.1 (0.0-3.0) % Neut # (Auto) 8.00 H (1.7-7.0) K/uL Lymph # (Auto) 2.10 (0.90-2.90) K/uL [place] # (Auto) 0.70 (0.00-0.90) K/UL Eos # (Auto) 0.20 (0.00-0.50) K/uL Baso # (Auto) 0.00 (0.00-0.30) K/uL Abs Immat Gran (auto) 0.00 (0.00-0.30) K/uL Imm/Tot Granulo (auto) 0.1 % Sodium 137 (135-149) mmol/L Potassium 3.5 L (3.6-5.1) mmol/L Chloride 104 (96-114) mmol/L Carbon Dioxide 27 (20-32) mmol/L Anion Gap 6 L (7-15) mEq/L BUN 10 (5-24) mg/dL Creatinine 0.5 (0.5-1.5) mg/dL Estimated Creat Clear 119.63 Estimated GFR 126 ml/min Glucose 102 (60-115) mg/dL Calcium 9.2 (8.4-10.6) mg/dL Total Bilirubin 0.5 (0.1-1.5) mg/dL AST 23 (12-35) U/L ALT 20 (4-35) U/L Alkaline Phosphatase 51 (40-150) U/L Total Protein 7.4 (6.0-8.3) g/dL Albumin 4.4 (3.3-5.0) g/dL HCG, Quant 94913.00 mIU/mL Urine Color Yellow (Yellow) Urine Appearance Cloudy A (Clear) Urine pH 8.0 (5.0-8.5) Ur Specific [place] 1.020 (1.000-1.030) Urine Protein Negative (Negative) Urine Glucose (UA) Negative (Negative) Urine Ketones Negative (Negative) Urine Blood Negative (Negative) Urine Nitrite Negative (Negative) Urine Bilirubin Negative (Negative) Urine Urobilinogen 0.2 (0.2-1.0) Ur Leukocyte Esterase Trace A (Negative) Urine RBC 0-2 (0-2) Urine WBC 0-2 (0-5) Ur Squamous Epith Cells Few (None-Few) Amorphous Sediment Many A (None) Other Sediment Few A (None) Urine Bacteria Moderate A (None) Hyaline Casts Few (None-Few) SARS-CoV-2 (PCR) Negative SARS-CoV-2 (Negative) Influenza Type A (PCR) Negative PCR FLU A (Negative) Influenza Type B (PCR) Negative PCR FLU B (Negative) Discharge Plan Discharge Clinical Impression: Acute viral syndrome Patient Disposition: Home, Self-Care Condition: Stable Instructions: Viral Syndrome (ED) Additional Instructions: Tylenol Rest Fluids Follow-up with your doctor as needed. vitamin Activity Level: No Restrictions Discharge Diet: Regular Prescriptions: No Action amoxicillin 500 mg capsule 500 mg PO Q8H prenat.vits,betina,bbq-ljna-eepbk Tablet 1 tab PO QDAY docusate sodium 100 mg Capsule 100 mg PO DAILY Qty: 90 0RF ibuprofen 600 mg Tablet 600 mg PO Q6H PRNQty: 60 0RF Follow Up/Referrals: Provider,Not a Local [Primary Care Provider] - Stand Alone Forms: MyHealth Info Instructions
--- OUTSIDE RECORDS SUMMARY | 2023-12-15 21:52 | XMS_ITS | Continuity of Care Document ---
Author Name Unknown Organization [facility] gisela Address [address] [place] [address] Phone Care Team Providers Care Pig Machine Supervisor Name Role Phone Will MD SORIA, Kieran [...] Diagnoses Date Provider Providers Copied on Encounter [facility], [address] [place], [place], [id number] , [place] tel: [phone] [facility] No Information 2 Will Kieran. [address] [place], [place], [id number] , [place]. tel: [phone] OFFICE/OUTPAT IENT VISIT, EST [facility], [address] [place], [place], [id number] , [place] tel:[phone] [facility] [place] Widespread pain (chief complaint) Chronic pain syndromeEhlers-D anlos syndromeLong term (current) use of opiate analgesic Dec-0 6-201 8 Hinds Morgan. [address] [place] [address] [address], [place], [place], [id number] , [place]. tel: [phone] Referring Provider: Kieran Casillas, [address] [place] [address], [id number]. tel:[phone] OFFICE/OUTPAT IENT VISIT, [facility], [address] [place] [address], [id number] , [place] tel: [phone] [facility] Widespread pain (chief complaint) Jesse-Danlos syndromeChronic pain syndromeLong term (current) use of opiate analgesic Nov-0 8-201 8 Hinds Morgan. [address] [place] [address] [address], [place], [place], [id number] , [place]. tel: [phone] Referring Provider: Kieran Casillas, [address] [place] [address], [id number]. tel:[phone] OFFICE/OUTPAT IENT VISIT, [facility], [address] [place] [address], [id number] , [place] tel: [phone] [facility] Widespread pain (chief complaint) Jesse-Danlos syndromeChronic pain syndrome Oct-1 0-201 8 Amos Henry. [employer], [address], [place], [address], [place]. tel: [phone] Referring Provider: Kieran Casillas, [address] [place] [address], [id number]. tel:[phone] OFFICE/OUTPAT IENT VISIT, [facility], [address] [place] [address], [id number] , [place] tel:[phone] [facility] Widespread pain (chief complaint) Chronic pain syndromeEhlers-D anlos syndrome Sep-0 7-201 8 Amos Henry. [employer], [address], [place], [address], [place]. tel:[phone] Referring Provider: Kieran Casillas, [address] [place], [address]. tel:[phone] OFFICE/OUTPAT IENT VISIT, [facility], [address] [place], [place], [id number] , [place] tel:[phone] [facility] [place] Widespread pain (chief complaint) Chronic pain syndromeEhlers-D anlos syndrome 8 Dandre Figueroa. [facility], [address], [place], [address], [place]. tel:[phone] Referring Provider: Junie Kiran, [address], [address]. tel:[phone] Family History Family Member Type Diagnosis Age At Onset Mother Problem (finding) CIVD and Fibromyalgia Father Problem (finding) Arthritis in back and k nees Payers Payer name Insurance type Covered republican ID Authoriza tion(s) RUST [id number] Social History Type Description Quantity Date Captured Comments Sex Female Smoking Status No Information Chief Complaint And Reason For Visit No Information Reason For Referral Reason For Referral No Information Plan Of Treatment Date Type Action Status Future Order: Lab Order COMPLIAN CE DRUG ANALYSIS, URINE, WITH MED REPORT ([id number]), Ordered on: Ordered Future Order: Lab Order COMPLIAN CE DRUG ANALYSIS, URINE, WITH MED REPORT ([id number]), Ordered on: Ordered History Of Present Illness [...] topical Parisa during the day and topical Miles at night. States she primarily uses the creams and oils on her hands, back, knees, ankles, feet. Patient is not accompanied today and has no further questions or other concerns. Widespread pain (comments) Jimmy jesus is here today for a followup and medication refill. She presents with #2 [place]- on track. She reports recent fall about [...] flags or neurologic symptoms.Completed PRC program at [place] [place]-- says it was very helpful. [facility] on and off over the last two years-- has been helpful. Reports previous x-ray at [facility]. Has taken flexeril, escitalopram, amitriptyline, and others (unspecified) for addtional pain relief. Currently taking nortriptyline and hydrocodone (once per week). States she is getting off gabapentin-- she does not like to be on medications. Reports she occasionally smokes marijuana pain-- interested in medical marijuana.Ms. Feldman would like [facility] to assume managment of pain care. Functional Status Date Functional Assessmen t No Information Instructions Date Instruction Additional Infor mation No Information Assessments Type Assessment Date No Information Patient Care Teams Name Effective Dates (start - stop) Status Members No Information
--- OUTSIDE RECORDS SUMMARY | 2023-12-15 21:52 | XMS_ITS | Clinical Summary ---
Author Name Unknown Organization [facility] Address [address], [place] [address] Care Team Providers Care Oncology Rep Specialist Name Role Phone Junie Da Silva MD [...] for each transition of care or referral. [facility] Allergies Active Allergy Reactions Criticality Noted Date [...] age to complete this topic Care Teams Oncology Rep Specialist Relationship Specialty Start Date End Date Junie Da Silva MD [address] [place] [address] PCP - General 03/03/16
--- OUTSIDE RECORDS SUMMARY | 2023-12-15 21:52 | XMS_ITS | Clinical Summary ---
Author Name Unknown Organization [facility] Address [place], [place] [address] Care Team Providers Care Protective Services Case Worker Name Role Phone AlmenaSandovalashburn Primary Care Provider Unavail able Allergies Active [...] Procedure Name Priority Date/Time Associated Diagnosis Comments RN LPN LVN THIN PREP PAP SCREEN IMAGED Routine 10/15/2020 8:30 AM CDT from Last 3 Months or Most Recently Relevant to Health Maintenance Results * RN LPN LVN THIN PREP PAP SCREEN IMAGED (10/15/2020 8:30 AM CDT) Case Report Gynecologic Cytology Report ? Case: [id number] ? Authorizing Provider: ??Unknown, Doctor ?Collected: ? 10/15/2020 0830 ? Ordering Location: ? [facility] ?Received: ?10/18/2020 0958 ? First Screen: ?BacAlbina simms ? Specimen: ?RN LPN LVN ThinPrep Vial Screening, Cervical/Vaginal ? 10/22/2020 4:04 PM CDT [facility] INTERPRETATION/ RESULT NEGATIVE FOR INTRAEPITHELIAL LESION OR MALIGNANCY (NIL) (none) 10/22/2020 4:04 PM CDT [facility] IMEN ADEQUACY Satisfactory for evaluation Endocervical component present 10/22/2020 4:04 PM CDT [facility] HPV REQUEST HPV and PAP 10/22/2020 4:04 PM CDT [facility] Date of LMP 09/27/2020 10/22/2020 4:04 PM CDT [facility] Last Pap Date 09/20/2017 10/22/2020 4:04 PM CDT [facility] Last Pap Result NIL 4:04 PM CDT [facility] Menstrual Status 10/22/2020 4:04 PM CDT [facility] Comment:IUD Additional Information 10/22/2020 4:04 PM CDT [facility] Comment: Interpreted at [facility] [employer] [facility], Central Laboratory - [address], [place] [address] Automated Review Successful 10/22/2020 4:04 PM CDT [facility] Comment:Specimen processed s uccessfully by automated manager pathology device, [employer], [employer] ANCILLARY TESTING RN LPN LVN HPV Ordered, Please see separate report 10/22/2020 4:04 PM CDT [facility] [employer] [facility] Note The pap test is [...] and malignant lesions. 10/22/2020 4:04 PM CDT [facility] Other (Cervical/Vagina l) 10/15/2020 8:30 AM CDT 10/18/2020 9:58 AM CDT Doctor Unknown PATHOLOGY/CYTOLOGY [facility] [employer] [facility] [address] [place] [address], [place] from Last 3 Months or Most Recently Relevant to Health Maintenance Care Teams Protective Services Case Worker Relationship Specialty Start Date End Date Chris Ferrari PCP - General 07/02/17
[2023-12-15 21:54] LABS: Basophils Percent Auto 0.1 % (0.0-3.0); Eosinophils Percent Auto 1.4 % (0.0-7.0); Hematocrit 37.2 % (33.0-51.0); Hemoglobin* 12.4 gm/dL (12.0-16.0); Immature Granulocytes Pct Auto 0.1 %; Lymphocytes Percent Auto 19.4 % (20-44); Mean Corpuscular HGB Conc 33 gm/dL (32-36); Mean Corpuscular Hemoglobin 30 pg (26-34); Mean Corpuscular Volume 89 fL (80-100); Monocytes Percent Auto 6.1 % (0.0-11.0); Neutrophils Percent Auto 72.9 % (42.0-72.0); Platelet Count* 207 K/uL (140-440); RDW Coefficient of Variation % 12.7 % (11.5-15.5); White Blood Count* 11.04 K/uL (4.50-11.00)
[2023-12-15 22:08] LABS: Slide Review Reflex No
[2023-12-15 22:14] LABS: RBC Urine 0-2 (0-2); Squamous Epithelial Cell Urine Few (None-Few); WBC Urine 0-2 (0-5)
[2023-12-15 22:15] LABS: Amorphous Sediment Urine Many; Bacteria Urine Moderate; Other Sediment Urine Few
[2023-12-15 22:16] LABS: Hyaline Casts Urine Few (None-Few)
[2023-12-15 22:18] LABS: Albumin* 4.4 g/dL (3.3-5.0); Chloride* 104 mmol/L (96-114)
[2023-12-15 22:19] LABS: Potassium* 3.5 mmol/L (3.6-5.1); Sodium* 137 mmol/L (135-149)
[2023-12-15 22:21] LABS: Alkaline Phosphatase* 51 U/L (40-150); Anion Gap 6 mEq/L (7-15); Aspartate Amino Transferase* 23 U/L (12-35); Bilirubin Total* 0.5 mg/dL (0.1-1.5); Carbon Dioxide* 27 mmol/L (20-32); Creatinine* 0.5 mg/dL (0.5-1.5); Est. Creatinine Clearance* 119.63; Estimated Glomerular Filt Rate 126 ml/min; Total Protein* 7.4 g/dL (6.0-8.3)
[2023-12-15 22:22] LABS: Alanine Aminotransferase* 20 U/L (4-35); Blood Urea Nitrogen* 10 mg/dL (5-24); Calcium* 9.2 mg/dL (8.4-10.6); Glucose* 102 mg/dL (60-115)
[2023-12-15 22:57] LABS: PCR FLU A Negative PCR FLU A (Negative); PCR FLU B Negative PCR FLU B (Negative); SARS PCR* Negative SARS-CoV-2 (Negative)
--- NOTE | 2023-12-15 23:11 | ED.GENADULT ---
HPI - General Adult General Chief complaint: OB/Uterine Contractions Stated complaint: 5 weeks , chills, nausea, body aches Time Seen by Provider: 12/15/23 21:18 Source: patient Mode of arrival: ambulatory Limitations: no limitations History of Present Illness HPI narrative: Patient is a 33-year-old woman who comes in today with recent vaginal bleeding. This stopped yesterday. She has no further vaginal complaints. I did pick the patient up from 1 my colleagues and please see his dictation. Ultrasound is negative and does show a 6 week gestation which the patient is aware of. Patient also a general malaise and evaluation is unremarkable including negative COVID swab UA. Rytary studies are reassuring. Related Data Home Medications Medication Instructions Recorded Confirmed prenat.vits,betina,[id number] 1 tab PO QDAY 08/04/22 04/09/23 amoxicillin 500 mg capsule 500 mg PO Q8H 04/09/23 04/09/23 Previous Rx's Medication Instructions Recorded docusate sodium 100 mg capsule 100 mg PO DAILY #90 caps 03/19/23 ibuprofen 600 mg tablet 600 mg PO Q6H PRN #60 tabs 03/19/23 Allergies Allergy/AdvReac Type Severity Reaction Status Date / Time Sulfa (Sulfonamide Allergy Rash Verified 04/09/23 12:56 Antibiotics) PFSH PFSH Medical History UTI (urinary tract infection) ?N39.0 - Urinary tract infection, site not specified (ICD-10) Spontaneous in first trimester (02/2022) ?O03.9 - Complete or unspecified spontaneous without complication (ICD-10) Infection due to severe acute respiratory syndrome coronavirus 2 (SARS-CoV-2) ?U07.1 - COVID-19 (ICD-10) Spasm of cervical paraspinous muscle ?M62.838 - Other muscle spasm (ICD-10) Radiculitis ?M54.10 - Radiculopathy, site unspecified (ICD-10) depression ?F53.0 - depression (ICD-10) History of vaginal delivery Surgical History [place] teeth extracted ?K08.409 - Partial loss of teeth, unspecified cause, unspecified class (ICD-10) History of right knee surgery (2009) ?Z98.890 - Other specified postprocedural states (ICD-10) Family History Brother Alcoholism Anxiety disorder Family/Other Alcoholism Father Anxiety disorder Diabetes Family history of early CAD Arthritis Mother Anxiety disorder Fibromyalgia Immune deficiency disorder Family/Other Anxiety disorder Sister Asthma FH: Down syndrome Paternal Grandfather Family history of stroke Other Migraine Social History Narrative: SOCIAL Education: High School/some college 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 Special Diet: Denies Ok with a blood transfusion: yes Culture or confucianism beliefs: Zoroastrianism - would want a teacher of the sight impaired called in emergency RISK FACTORS Exercise Times/wk: not so much right now Depression/Anxiety: History of both, fairly recent - gotten better over last 6 month - seeing therapist once a week, not on medications - Pt stated it is working well. Seat Belt Use: Routinely Smoking: Denies past -quit 11 years ago - was smoking a pack a day Alcohol/day: Denies while Caffeine: yes - trying to limit, discussed 200mg limit recommendation Drug Use: Denies past/present Chicken Pox: Yes as a child MRSA: Denies COVID vaccine/boosters: had covid a year ago, declines vaccine at this time Flu vaccine: no What is your current living situation?: I presently have a place to live Problems where you live: no known problems In the past 12 months, utilities in danger of being shut off: no In past 12 months, lack of transportation kept you from medical appts, meetings, work, or getting things needed for daily living: no In the past 12 mos, have been you worried that your food would run out before you had money to buy more?: never true In the past 12 mos, the food you bought just didn't last and you didn't have money to buy more?: never true Smoking Status: Former smoker What tobacco products do you use: cigarettes Smoking quit date/years: <= 15 years ago Do you use any of these nicotine containing products: None Second hand tobacco smoke exposure: No How often do you have a drink containing alcohol: never How often do you have six or more drinks on one occasion: Never AUDIT-C Alcohol total score: 0 Non-prescribed substance use: denies use How often does anyone, including family, friends and others, physically hurt you: never How often does anyone, including family, friends and others, insult or talk down to you: fairly often How often does anyone, including family, friends and others, threaten you with harm: rarely How often does anyone, including family, friends and others, scream or curse at you: fairly often Little interest or pleasure in doing things: several days Feeling down, depressed, or hopeless: several days service: No Exam Const: Vital Signs, click to edit/add: Vital Signs - 24 hr 12/15/23 21:24 Temperature 98.2 F Pulse Rate [Pulse Oximeter] 87 Respiratory Rate 16 Blood Pressure [Ri ght Upper Arm] 125/91 H Pulse Oximetry 99 Oxygen Delivery Me thod Room Air Course Vital Signs Vital signs: Initial Vital Signs Temperature 98.2 F 12/15/23 21:24 Temperature Source Temporal Artery Scan 12/15/23 21:24 Pulse Rate 87 12/15/23 21:24 Respiratory Rate 16 12/15/23 21:24 Blood Pressure 125/91 H 12/15/23 21:24 Blood Pressure Mean 102 12/15/23 21:24 Blood Pressure Position Sitting 12/15/23 21:24 Pulse Oximetry 99 12/15/23 21:24 Oxygen Delivery Method Room Air 12/15/23 21:24 Vital Signs Temperature 98.2 F 12/15/23 21:24 Pulse Rate 87 12/15/23 21:24 Respiratory Rate 16 12/15/23 21:24 Blood Pressure 125/91 H 12/15/23 21:24 Pulse Oximetry 99 12/15/23 21:24 Oxygen Delivery Method Room Air 12/15/23 21:24 Temperature 98.2 F 12/15/23 23:27 Pulse Rate 81 12/15/23 23:27 Respiratory Rate 16 12/15/23 23:27 Blood Pressure 118/74 12/15/23 23:27 Pulse Oximetry 99 12/15/23 23:18 Oxygen Delivery Method Room Air 12/15/23 23:18 Medical Decision Making Lab Data Labs: Lab Results 12/15/23 12/15/23 12/15/23 Range/Units 21:22 21:32 21:48 WBC 11.04 H (4.50-11.00) K/uL RBC 4.20 (4.00-5.20) m/uL Hgb 12.4 (12.0-16.0) gm/dL Hct 37.2 (33.0-51.0) % MCV 89 (80-100) fL MCH 30 (26-34) pg MCHC 33 (32-36) gm/dL RDW Coeff of Taco 12.7 (11.5-15.5) % Plt Count 207 (140-440) K/uL Neut % (Auto) 72.9 H (42.0-72.0) % Lymph % (Auto) 19.4 L (20-44) % [place] % (Auto) 6.1 (0.0-11.0) % Eos % (Auto) 1.4 (0.0-7.0) % Baso % (Auto) 0.1 (0.0-3.0) % Neut # (Auto) 8.00 H (1.7-7.0) K/uL Lymph # (Auto) 2.10 (0.90-2.90) K/uL [place] # (Auto) 0.70 (0.00-0.90) K/UL Eos # (Auto) 0.20 (0.00-0.50) K/uL Baso # (Auto) 0.00 (0.00-0.30) K/uL Abs Immat Gran (auto) 0.00 (0.00-0.30) K/uL Imm/Tot Granulo (auto) 0.1 % Sodium 137 (135-149) mmol/L Potassium 3.5 L (3.6-5.1) mmol/L Chloride 104 (96-114) mmol/L Carbon Dioxide 27 (20-32) mmol/L Anion Gap 6 L (7-15) mEq/L BUN 10 (5-24) mg/dL Creatinine 0.5 (0.5-1.5) mg/dL Estimated Creat Clear 119.63 Estimated GFR 126 ml/min Glucose 102 (60-115) mg/dL Calcium 9.2 (8.4-10.6) mg/dL Total Bilirubin 0.5 (0.1-1.5) mg/dL AST 23 (12-35) U/L ALT 20 (4-35) U/L Alkaline Phosphatase 51 (40-150) U/L Total Protein 7.4 (6.0-8.3) g/dL Albumin 4.4 (3.3-5.0) g/dL HCG, Quant 40810.00 mIU/mL Urine Color Yellow (Yellow) Urine Appearance Cloudy A (Clear) Urine pH 8.0 (5.0-8.5) Ur Specific [place] 1.020 (1.000-1.030) Urine Protein Negative (Negative) Urine Glucose (UA) Negative (Negative) Urine Ketones Negative (Negative) Urine Blood Negative (Negative) Urine Nitrite Negative (Negative) Urine Bilirubin Negative (Negative) Urine Urobilinogen 0.2 (0.2-1.0) Ur Leukocyte Esterase Trace A (Negative) Urine RBC 0-2 (0-2) Urine WBC 0-2 (0-5) Ur Squamous Epith Cells Few (None-Few) Amorphous Sediment Many A (None) Other Sediment Few A (None) Urine Bacteria Moderate A (None) Hyaline Casts Few (None-Few) SARS-CoV-2 (PCR) Negative SARS-CoV-2 (Negative) Influenza Type A (PCR) Negative PCR FLU A (Negative) Influenza Type B (PCR) Negative PCR FLU B (Negative) Discharge Plan Discharge Clinical Impression: Acute viral syndrome Patient Disposition: Home, Self-Care Condition: Stable Instructions: Viral Syndrome (ED) Additional Instructions: Tylenol Rest Fluids Follow-up with your doctor as needed. vitamin Activity Level: No Restrictions Discharge Diet: Regular Prescriptions: No Action amoxicillin 500 mg capsule 500 mg PO Q8H prenat.vits,betina,[id number] Tablet 1 tab PO QDAY docusate sodium 100 mg Capsule 100 mg PO DAILY Qty: 90 0RF ibuprofen 600 mg Tablet 600 mg PO Q6H PRNQty: 60 0RF Follow Up/Referrals: Provider,Not a Local [Primary Care Provider] - Stand Alone Forms: [employer] Info Instructions
[2023-12-15 23:18] VITALS: BP 118/74; PULSE 81; RESP 16; TEMP 36.8; O2SAT 99
[2023-12-15 23:27] VITALS: BP 118/74; PULSE 81; RESP 16; TEMP 36.8
== END 2023-12-15 23:28 | disposition home or self-care (01) ==
PROVIDERS: Student in an Organized Health Care Education/Training Program; Emergency Provider Internal Medicine
DX: B34.9 Viral infection, unspecified (principal)
CPT/HCPCS: 36415; 76817; 80053; 81001; 84702; 85025; 87086; 87631; 93976; 99283; 99284

== ENCOUNTER 2023-12-26 09:31 | Outpatient (CLI) | payer BC, SELFPAY ==
--- OUTSIDE RECORDS SUMMARY | 2023-12-26 09:33 | XMS_ITS | Clinical Summary ---
Author Organization [facility] Address [address] [place] [address] Care Team Providers Care Salesforce Administrator Name Role Phone Junie Da Silva MD [...] for each transition of care or referral. [place] Allergies Active Allergy Reactions Criticality Noted Date [...] age to complete this topic Care Teams Salesforce Administrator Relationship Specialty Start Date End Date Junie Da Silva MD [address] [place] [address] PCP - General 03/03/16
--- OUTSIDE RECORDS SUMMARY | 2023-12-26 09:33 | XMS_ITS | Clinical Summary ---
Author Organization [facility] Address [place], [place] [address] Care Team Providers Care Warehouse Coordinator Name Role Phone [facility] Primary Care Provider Unavail able Allergies Active [...] Procedure Name Priority Date/Time Associated Diagnosis Comments MECHANICAL ENGINEERING SPECIALIST THIN PREP PAP SCREEN IMAGED Routine 10/15/2020 8:30 AM CDT from Last 3 Months or Most Recently Relevant to Health Maintenance Results * MECHANICAL ENGINEERING SPECIALIST THIN PREP PAP SCREEN IMAGED (10/15/2020 8:30 AM CDT) Case Report Gynecologic Cytology Report ? Case: [id number] ? Authorizing Provider: ??Unknown, Doctor ?Collected: ? 10/15/2020 0830 ? Ordering Location: ? [facility] ?Received: ?10/18/2020 0958 ? First Screen: ?Bacdemi, Albina ? Specimen: ?MECHANICAL ENGINEERING SPECIALIST ThinPrep Vial Screening, Cervical/Vaginal ? 10/22/2020 4:04 PM CDT [facility] INTERPRETATION/ RESULT NEGATIVE FOR INTRAEPITHELIAL LESION OR MALIGNANCY (NIL) (none) 10/22/2020 4:04 PM CDT [facility] IMEN ADEQUACY Satisfactory for evaluation Endocervical component present 10/22/2020 4:04 PM CDT [facility] HPV REQUEST HPV and PAP 10/22/2020 4:04 PM CDT [facility] Date of LMP 09/27/2020 10/22/2020 4:04 PM CDT [facility] Last Pap Date 09/20/2017 10/22/2020 4:04 PM CDT [facility] Last Pap Result NIL 4:04 PM CDT [facility] Menstrual Status 10/22/2020 4:04 PM CDT [facility] Comment:IUD Additional Information 10/22/2020 4:04 PM CDT [facility] Comment: Interpreted at [facility] [employer] [facility] [place] [facility], Central Laboratory - [address], [place] [address] Automated Review Successful 10/22/2020 4:04 PM CDT [facility] Comment:Specimen processed s uccessfully by automated cutter v groove device, [employer]Prep Imaging System, [employer] ANCILLARY TESTING MECHANICAL ENGINEERING SPECIALIST HPV Ordered, Please see separate report 10/22/2020 4:04 PM CDT [facility] Note The pap test [...] and malignant lesions. 10/22/2020 4:04 PM CDT [facility] Other (Cervical/Vagina l) 10/15/2020 8:30 AM CDT 10/18/2020 9:58 AM CDT Doctor Unknown PATHOLOGY/CYTOLOGY [facility] [address] [place] [address], [place] from Last 3 Months or Most Recently Relevant to Health Maintenance Care Teams Warehouse Coordinator Relationship Specialty Start Date End Date Chris Ferrari PCP - General 07/02/17
--- OUTSIDE RECORDS SUMMARY | 2023-12-26 09:33 | XMS_ITS | Continuity of Care Document ---
Author Organization [facility] Address [address] [place] [address] [place] [address] Phone Care Team Providers Care Indirect Sales Representative Name Role Phone Will MD SORIA, Kieran [...] Diagnoses Date Provider Providers Copied on Encounter [facility], [address] [facility] [place], [place], [id number] , [place] tel: [phone] [facility] No Information 2 Will Kieran. [address] [facility] [place], [place], [id number] , [place]. tel: [phone] OFFICE/OUTPAT IENT VISIT, EST [facility], [address] [facility] [place], [id number] , [place] tel: [phone] [facility] [place] Widespread pain (chief complaint) Chronic pain syndromeEhlers-D anlos syndromeLong term (current) use of opiate analgesic Dec-0 6-201 8 Hinds Morgan. [address] [place] [address] [address], [place], [place], [id number] , [place]. tel: [phone] Referring Provider: Kieran Casillas, [address] [place] [address], [id number]. tel:[phone] OFFICE/OUTPAT IENT VISIT, [facility], [address] [place] [address], [id number] , [place] tel: [phone] [facility] Widespread pain (chief complaint) Jesse-Danlos syndromeChronic pain syndromeLong term (current) use of opiate analgesic Nov-0 8-201 8 Hinds Morgan. [address] [place] [address] [address], [place], [place], [id number] , [place]. tel: [phone] Referring Provider: Kieran Casillas, [address] [place] [address], [id number]. tel:[phone] OFFICE/OUTPAT IENT VISIT, [facility], [address] [place] [address], [id number] , [place] tel: [phone] [facility] Widespread pain (chief complaint) Jesse-Danlos syndromeChronic pain syndrome Oct-1 0-201 8 Amos Henry. [email or web address], [address] [facility] [address], [place], [address], [place]. tel: [phone] Referring Provider: Kieran Casillas, [address] [place] [address], [id number]. tel:[phone] OFFICE/OUTPAT IENT VISIT, [facility], [address] [place] [address], [id number] , [place] tel: [phone] [facility] Widespread pain (chief complaint) Chronic pain syndromeEhlers-D anlos syndrome Sep-0 7-201 8 Amos Henry. [email or web address], [address], [place], [address], [place]. tel:[phone] Referring Provider: Kieran Casillas, [address] [place], [address]. tel:[phone] OFFICE/OUTPAT IENT VISIT, [facility], [address] [place], [place], [id number] , [place] tel:[phone] [facility] [place] Widespread pain (chief complaint) Chronic pain syndromeEhlers-D anlos syndrome 8 Dandre Figueroa. [facility], [address], [place], [address], [place]. tel:[phone] Referring Provider: Junie Kiran, [address], [address]. tel:[phone] Family History Family Member Type Diagnosis Age At Onset Mother Problem (finding) CIVD and Fibromyalgia Father Problem (finding) Arthritis in back and k nees Payers Payer name Insurance type Covered republican ID Authoriza tion(s) [facility] [id number] Social History Type Description Quantity Date Captured Comments Sex Female Smoking Status No Information Chief Complaint And Reason For Visit No Information Reason For Referral Reason For Referral No Information Plan Of Treatment Date Type Action Status Future Order: Lab Order COMPLIAN CE DRUG ANALYSIS, URINE, WITH MED REPORT ([id number]), Ordered on: Ordered Future Order: Lab Order COMPLIAN CE DRUG ANALYSIS, URINE, WITH MED REPORT ([id number]), Ordered on: Ordered History Of Present Illness [...] topical [place] during the day and topical [place] at night. States she primarily uses the [...] and medication refill. She presents with #2 [place]- on track. She reports recent fall about [...] flags or neurologic symptoms.Completed PRC program at [facility]-- says it was very helpful. [facility]went [facility] on and off over the last two years-- has been helpful. Reports previous x-ray at [facility] and [facility]. Has taken flexeril, escitalopram, amitriptyline, and others (unspecified) for addtional pain relief. Currently taking nortriptyline and hydrocodone (once per week). States she is getting off gabapentin-- she does not like to be on medications. Reports she occasionally smokes marijuana pain-- interested in medical marijuana.Ms. Feldman would like [facility] to assume managment of pain care. Functional Status Date Functional Assessmen t No Information Instructions Date Instruction Additional Infor mation No Information Assessments Type Assessment Date No Information Patient Care Teams Name Effective Dates (start - stop) Status Members No Information
--- NOTE | 2023-12-26 09:45 | CRLHL7_ITS ---
For Patients: As a result of the Century Cures Act, medical imaging exams and procedure reports are released immediately into your electronic medical record. You may view this report before your referring provider. If you have questions, please contact your health care provider. INDICATION: Follow-up viability COMPARISON: 12/15/2023 TECHNIQUE: Real-time groves-scale imaging of the pelvis was performed. FINDINGS: Sonographic imaging demonstrates a single living intrauterine gestation. The embryo demonstrates a regular cardiac rate measuring 180 beats per minute. The embryo`s crown-rump length measurement of 2.1 cm corresponds to a gestational age of 8 weeks 5 days with a sonographic due date of 08/01/2024. There is a normal-appearing yolk sac. There are no gross abnormalities noted within the embryo at this early state of development. The gestational sac has a normal appearance. There is no evidence of a perigestational hemorrhage. The amount of fluid within the sac appears appropriate for gestational age. The cervix is closed. The myometrium appears normal. Simple left paraovarian cyst is present measuring 4.6 x 3.9 x 3.1 cm. Corpus luteal cyst left ovary measures 3.0 x 2.3 x 2.7 cm. Unremarkable right ovary. There are no suspicious fluid collections noted in the cul-de-sac. IMPRESSION: Single living intrauterine with sonographic gestational age 8 weeks 5 days and sonographic due date of 08/01/2024. Dictated by Arnulfo Dominguez MD @ 12/26/2023 12:09:01 PM (Electronically Signed)
== END 2023-12-26 09:32 | disposition home or self-care (01) ==
LOC: US 09:31
PROVIDERS: Visit Provider Registered Nurse
DX: Z34.91 Encounter for supervision of normal pregnancy, unspecified, first trimester (principal); Z3A.08 8 weeks gestation of pregnancy
CPT/HCPCS: 76817; 86592; 86703; 86704; 86706; 86762; 86787; 86803; 86850; 86900; 86901; 87086; 87340; 87491; 87591

== ENCOUNTER 2024-01-18 02:20 | Emergency (ER) | payer BC, SELFPAY ==
[2024-01-18 02:29] VITALS: BP 115/85; PULSE 81; RESP 16; TEMP 36.7; O2SAT 99; BMI 25.7
--- NOTE | 2024-01-18 02:59 | ED.GENADULT ---
HPI - General Adult General Chief complaint: Vaginal Bleeding Stated complaint: miscarriage - 12 weeks Time Seen by Provider: 01/18/24 02:37 Source: patient Mode of arrival: ambulatory Limitations: no limitations History of Present Illness HPI narrative: 33-year-old female at 12 weeks gestation today presenting with dark red vaginal bleeding for the past 30 minutes. Woke her from sleep with a gush now is more of a consistent trickle. No large clots, no tissue. Does not take any anticoagulants. Rates her cramping as 7/10. Has had 1 miscarriage in the past. No known clotting disorders. Has 3 healthy boys, previously healthy pregnancies. No fever, no trauma, no abdominal symptoms. Did not try any other interventions prior to coming to ED. has already had her 1st OB visit. Blood type is known to be A positive. Has had previous ultrasound to confirm date Past medical history benign. Sulfa allergy. No long-term medications besides her vitamin. ROS notable for the gynecological symptoms as above only, otherwise denies times 12 systems. Related Data Home Medications ?Medication ?Instructions ?Recorded ?Confirmed prenat.vits,betina,iuv-egca-takqx 1 tab PO QDAY 08/04/22 12/26/23 Allergies Allergy/AdvReac Type Severity Reaction Status Date / Time Sulfa (Sulfonamide Allergy Rash Verified 12/26/23 10:28 Antibiotics) [facility] Medical History Hemorrhoids ?K64.9 - Unspecified hemorrhoids (ICD-10) UTI (urinary tract infection) ?N39.0 - Urinary tract infection, site not specified (ICD-10) Spontaneous in first trimester (02/2022) ?O03.9 - Complete or unspecified spontaneous without complication (ICD-10) Infection due to severe acute respiratory syndrome coronavirus 2 (SARS-CoV-2) ?U07.1 - COVID-19 (ICD-10) Spasm of cervical paraspinous muscle ?M62.838 - Other muscle spasm (ICD-10) Radiculitis ?M54.10 - Radiculopathy, site unspecified (ICD-10) depression ?F53.0 - depression (ICD-10) History of vaginal delivery Surgical History [place] teeth extracted ?K08.409 - Partial loss of teeth, unspecified cause, unspecified class (ICD-10) History of right knee surgery (2008) ?Z98.890 - Other specified postprocedural states (ICD-10) Family History Brother Alcoholism Anxiety disorder Family/Other Alcoholism Father Anxiety disorder Diabetes Family history of early CAD Arthritis Mother Anxiety disorder Fibromyalgia Immune deficiency disorder Family/Other Anxiety disorder Sister Asthma FH: Down syndrome Paternal Grandfather Family history of stroke Other Migraine Social History Narrative: SOCIAL Education: High School/some college 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 Special Diet: Denies Ok with a blood transfusion: yes Culture or latter-day beliefs: Religion - would want a rocket motor tester called in emergency RISK FACTORS Exercise Times/wk: not so much right now Depression/Anxiety: History of both, fairly recent - gotten better over last 6 month - seeing therapist once a week, not on medications - Pt stated it is working well. Seat Belt Use: Routinely Smoking: Denies past -quit 11 years ago - was smoking a pack a day Alcohol/day: Denies while Caffeine: yes - trying to limit, discussed 200mg limit recommendation Drug Use: Denies past/present Chicken Pox: Yes as a child MRSA: Denies COVID vaccine/boosters: had covid a year ago, declines vaccine at this time Flu vaccine: no What is your current living situation?: I presently have a place to live Problems where you live: no known problems In the past 12 months, utilities in danger of being shut off: no In past 12 months, lack of transportation kept you from medical appts, meetings, work, or getting things needed for daily living: no In the past 12 mos, have been you worried that your food would run out before you had money to buy more?: never true In the past 12 mos, the food you bought just didn't last and you didn't have money to buy more?: never true Smoking Status: Former smoker What tobacco products do you use: cigarettes Smoking quit date/years: <= 15 years ago Do you use any of these nicotine containing products: None Second hand tobacco smoke exposure: No How often do you have a drink containing alcohol: never How often do you have six or more drinks on one occasion: Never AUDIT-C Alcohol total score: 0 Non-prescribed substance use: denies use How often does anyone, including family, friends and others, physically hurt you: never How often does anyone, including family, friends and others, insult or talk down to you: rarely How often does anyone, including family, friends and others, threaten you with harm: never How often does anyone, including family, friends and others, scream or curse at you: never Little interest or pleasure in doing things: several days Feeling down, depressed, or hopeless: more than half the days service: No Exam Const: Vital Signs, click to edit/add: Vital Signs - 24 hr 01/18/24 02:29 Temperature 98.1 F Pulse Rate [Pulse Oximeter] 81 Respiratory Rate 16 Blood Pressure [Ri ght Upper Arm] 115/85 Pulse Oximetry 99 Oxygen Delivery Me thod Room Air Documenting provider has reviewed patient's vital signs: yes General appearance: well kempt Other: Mildly anxious but good historian. Well nourished and well hydrated, no pallor. HENMT: Common normals: normocephalic Head and scalp: normocephalic Other: Acyanotic lips with no pallor Eye: General eye: normal appearance of both eyes Resp: Common normals: normal respiratory effort Effort & inspection: able to speak in complete sentences GI: Common normals: Normal to inspection, nondistended, normoactive bowel sounds present and soft to palpation Palpation: soft : Other: Normal external genitalia, multiparous appearing closed cervix with mild amount of dark red vaginal bleeding, no clots. Cervix and vaginal mucosa otherwise normal in appearance. No unusual odor. No mucus. Fundal height consistent with 12-14 week gestation, nontender. Extremity: Common normals: normal to inspection and normal capillary refill Psych: Appearance: well kempt Attitude: engaged Activity/motor behavior: appropriate eye contact Insight: insight good Judgement: judgment good Skin: Common normals: no rashes or lesions noted General skin exam: no rashes or lesions noted Course Course ED Course: Formal ultrasound unavailable overnight. Bedside ultrasound was used to confirm a mckeon intrauterine consistent with dates, very active movement and strong heart rate in the 160s noted. Normal appearing amniotic fluid volume. There does seem to be a slightly frayed edge of the placenta down near the cervical tip but I did not have adequate views to assess this fully. Patient counseled on findings, somewhat reassured. Reviewed alarm symptoms that would warrant ED presentation. Blood type A positive, does not need RhoGAM. She will call her Ob provider in the daylight hours and relayed the findings from the ED. I do not see any indications to dry and hCG level or hemoglobin based on her recent labs and previous history. Patient verbalizes understanding and agreement. Okay to use Tylenol for cramping p.r.n., rest for the next 24 hours nothing in the vagina for 48 hours and the remainder of instructions to come from Ob provider. Vital Signs Vital signs: Initial Vital Signs Temperature 98.1 F 01/18/24 02:29 Temperature Source Temporal Artery Scan 01/18/24 02:29 Pulse Rate 81 01/18/24 02:29 Respiratory Rate 16 01/18/24 02:29 Blood Pressure 115/85 01/18/24 02:29 Blood Pressure Mean 95 01/18/24 02:29 Blood Pressure Position Supine 01/18/24 02:29 Pulse Oximetry 99 01/18/24 02:29 Oxygen Delivery Method Room Air 01/18/24 02:29 Vital Signs Temperature 98.1 F 01/18/24 02:29 Pulse Rate 81 01/18/24 02:29 Respiratory Rate 16 01/18/24 02:29 Blood Pressure 115/85 01/18/24 02:29 Pulse Oximetry 99 01/18/24 02:29 Oxygen Delivery Method Room Air 01/18/24 02:29 Temperature 98.1 F 01/18/24 02:29 Pulse Rate 81 01/18/24 02:29 Respiratory Rate 16 01/18/24 02:29 Blood Pressure 115/85 01/18/24 02:29 Pulse Oximetry 99 01/18/24 02:29 Oxygen Delivery Method Room Air 01/18/24 02:29 Discharge Plan Discharge Clinical Impression: Threatened miscarriage Patient Disposition: Home, Self-Care Condition: Stable Instructions: Threatened Miscarriage (ED) Additional Instructions: As we discussed, you may be having a miscarriage but it is too soon to tell at this time. For now, the amount of bleeding that you are having is worth keeping track of but is not severe at this time. Your body seems to be handling things well. Thankfully, the baby is active, moving and has a strong heartbeat. The amount of fluid around the baby also looks great. I can already start to see some of the forming organs and this baby looks very healthy. I can see a slight fraying of the edge of the placenta down by the cervix that is likely the source of the bleeding, but I cannot confirm with our low attack bedside ultrasound. I do not have an extractions technologist available overnight. I would like for you to call your Ob provider in the daylight hours this morning. You will let her know when the bleeding started, that you were seen in the ER. Cervix looked closed with mild bleeding. Bedside ultrasound showed an active healthy baby with a strong heartbeat. Your blood type is A positive and no other interventions were performed. They may want to order a follow-up ultrasound when the this is available in the next few days. In the meantime, you may use Tylenol 1000 mg every 6 hours as needed for cramping and discomfort. Nothing in the vagina for the next 48 hours. Try to rest for the next 24 hours, light activity only. You should come back to the emergency department if the bleeding is very heavy, soaking more than a pad per hour for more than a couple of hours or if you have very large clots, larger than a quarter consistently for more than a few minutes. If you start getting very dizzy, lightheaded or pass out, you should come back to the ER. Remember that there is likely nothing you or any medical intervention could do at this point to influence the miscarriage 1 way or another. Activity Level: Light activity Discharge Diet: Regular Prescriptions: No Action prenat.vits,betina,cgp-donn-ppwdk Tablet 1 tab PO QDAY Follow Up/Referrals: Provider,Not a Local [Primary Care Provider] - Stand Alone Forms: We Cluster Info Instructions
--- OUTSIDE RECORDS SUMMARY | 2024-01-18 03:01 | XMS_ITS | Clinical Summary ---
Author Organization [facility] Address [address] [place] [id number] Care Team Providers Care Water Chaser Name Role Phone Junie Da Silva MD [...] for each transition of care or referral. Meedor Allergies Active Allergy Reactions Criticality Noted Date [...] age to complete this topic Care Teams Water Chaser Relationship Specialty Start Date End Date Junie Da Silva MD [address] [place] [address] PCP - General 03/03/16
--- OUTSIDE RECORDS SUMMARY | 2024-01-18 03:02 | XMS_ITS | Clinical Summary ---
Author Organization [employer] [facility] Address [place], [place] [address] Care Team Providers Care Submarine Cable Equipment Technician Name Role Phone Lucien [facility] Primary Care Provider Unavail [...] Outcome GA Total Labor Labor/2nd/3rd Weight Sex Type Anes PTL Naa A1 A5 Name Clin Term Last Filed Vital Signs Vital Sign [...] Procedure Name Priority Date/Time Associated Diagnosis Comments GIS DATABASE ADMINISTRATOR THIN PREP PAP SCREEN IMAGED Routine 10/15/2020 8:30 AM CDT from Last 3 Months or Most Recently Relevant to Health Maintenance Results * GIS DATABASE ADMINISTRATOR THIN PREP PAP SCREEN IMAGED (10/15/2020 8:30 AM CDT) Case Report Gynecologic Cytology Report ? Case: [id number] ? Authorizing Provider: ??Unknown, Doctor ?Collected: ? 10/15/2020 0830 ? Ordering Location: ? [facility] ?Received: ?10/18/2020 0958 ? First Screen: ?Bacdemi, Albina ? Specimen: ?GIS DATABASE ADMINISTRATOR ThinPrep Vial Screening, Cervical/Vaginal ? 10/22/2020 4:04 PM CDT [facility] INTERPRETATION/ RESULT NEGATIVE FOR INTRAEPITHELIAL LESION OR MALIGNANCY (NIL) (none) 10/22/2020 4:04 PM CDT [facility] IMEN ADEQUACY Satisfactory for evaluation Endocervical component present 10/22/2020 4:04 PM CDT [facility] HPV REQUEST HPV and PAP 10/22/2020 4:04 PM CDT [facility] Date of LMP 09/27/2020 10/22/2020 4:04 PM CDT [facility] Last Pap Date 09/20/2017 10/22/2020 4:04 PM CDT [facility] Last Pap Result NIL 4:04 PM CDT [facility] Menstrual Status 10/22/2020 4:04 PM CDT [facility] Comment:IUD Additional Information 10/22/2020 4:04 PM CDT [facility] Comment: Interpreted at [facility] Uni[facility], Central Laboratory - [address], [place] [address] Automated Review Successful 10/22/2020 4:[address] Comment:Specimen processed s uccessfully by automated entry manager device, Powin Energy CorporationPrep Imaging System, [employer] ANCILLARY TESTING GIS DATABASE ADMINISTRATOR HPV Ordered, Please see separate report 10/22/2020 4:04 PM CDT [facility] [employer] [facility] Note The pap test is [...] and malignant lesions. 10/22/2020 4:[address] [facility] Other (Cervical/Vagina l) 10/15/2020 8:30 AM CDT 10/18/2020 9:58 AM CDT Doctor Unknown PATHOLOGY/CYTOLOGY [facility] [address] [place] [address], [place] from Last 3 Months or Most Recently Relevant to Health Maintenance Care Teams Submarine Cable Equipment Technician Relationship Specialty Start Date End Date Chris Ferrari PCP - General 07/02/17
== END 2024-01-18 03:10 | disposition home or self-care (01) ==
LOC: ED 02:59
PROVIDERS: Emergency Provider Family Medicine
DX: O20.0 Threatened abortion (principal); Z3A.12 12 weeks gestation of pregnancy
CPT/HCPCS: 99283

== ENCOUNTER 2024-01-18 13:37 | Outpatient (CLI) | payer BC, SELFPAY ==
--- OUTSIDE RECORDS SUMMARY | 2024-01-18 13:39 | XMS_ITS | Clinical Summary ---
Author Organization [employer] [facility] Address [place], [place] [address] Care Team Providers Care Space And Storage Clerk Name Role Phone Toutle [facility] Primary Care Provider Unavail able Allergies Active [...] Procedure Name Priority Date/Time Associated Diagnosis Comments STREET LIGHT INSPECTOR THIN PREP PAP SCREEN IMAGED Routine 10/15/2020 8:30 AM CDT from Last 3 Months or Most Recently Relevant to Health Maintenance Results * STREET LIGHT INSPECTOR THIN PREP PAP SCREEN IMAGED (10/15/2020 8:30 AM CDT) Case Report Gynecologic Cytology Report ? Case: [id number] ? Authorizing Provider: ??Unknown, Doctor ?Collected: ? 10/15/2020 0830 ? Ordering Location: ? [facility] ?Received: ?10/18/2020 0958 ? First Screen: ?Bacdemi, Albina ? Specimen: ?STREET LIGHT INSPECTOR ThinPrep Vial Screening, Cervical/Vaginal ? 10/22/2020 4:04 PM CDT [facility] ENTRAL LABORATORY INTERPRETATION/ RESULT NEGATIVE FOR INTRAEPITHELIAL LESION OR MALIGNANCY (NIL) (none) 10/22/2020 4:04 PM CDT [facility] EN[facility] IMEN ADEQUACY Satisfactory for evaluation Endocervical component present 10/22/2020 4:04 PM CDT [facility] HPV REQUEST HPV and PAP 10/22/2020 4:04 PM CDT [facility] Date of LMP 09/27/2020 10/22/2020 4:04 PM CDT [facility] Last Pap Date 09/20/2017 10/22/2020 4:04 PM CDT [facility] Last Pap Result NIL 4:04 PM CDT [facility] Menstrual Status 10/22/2020 4:04 PM CDT [facility] Comment:IUD Additional Information 10/22/2020 4:04 PM CDT [facility] Comment: Interpreted at [facility] [employer] [facility], Central Laboratory - [address], [place] [address] Automated Review Successful 10/22/2020 4:04 PM CDT [facility] ENTRAL [facility]AT[facility] Comment:Specimen processed s uccessfully by automated air grinder device, Here On B[employer]Prep Imaging System, [employer] ANCILLARY TESTING STREET LIGHT INSPECTOR HPV Ordered, Please see separate report 10/22/2020 4:04 PM CDT [facility] [employer] [facility] EN[facility] Note The pap test is [...] and malignant lesions. 10/22/2020 4:04 PM CDT [facility] ENTRW[facility] LAB[facility]ATORY Other (Cervical/Vagina l) 10/15/2020 8:30 AM CDT 10/18/2020 9:58 AM CDT Doctor Unknown PATHOLOGY/CYTOLOGY [facility] [employer] [facility] [address] [place] [address], [place] from Last 3 Months or Most Recently Relevant to Health Maintenance Care Teams Space And Storage Clerk Relationship Specialty Start Date End Date Chris Ferrari PCP - General 07/02/17
--- OUTSIDE RECORDS SUMMARY | 2024-01-18 13:39 | XMS_ITS | Clinical Summary ---
Author Organization [facility] Address [address] [place] [address] Care Team Providers Care Assembling Motor Builder Name Role Phone Junie Da Silva MD [...] for each transition of care or referral. Easiest Credit Card To Get Approved For Allergies Active Allergy Reactions Criticality Noted Date [...] age to complete this topic Care Teams Assembling Motor Builder Relationship Specialty Start Date End Date Junie Da Silva MD [address] [place] [address] PCP - General 03/03/16
--- NOTE | 2024-01-18 13:45 | CRLHL7_ITS ---
For Patients: As a result of the Century Cures Act, medical imaging exams and procedure reports are released immediately into your electronic medical record. You may view this report before your referring provider. If you have questions, please contact your health care provider. INDICATION: Vaginal bleeding in the setting of . COMPARISON: None available. TECHNIQUE: Transabdominal pelvic ultrasound. FINDINGS: Cortes living intrauterine gestation. heart rate is 167 beats per minute. [place]-rump length is 6.1 cm corresponding to an EGA of 12 weeks 4 days with an CHERIE of 07/28/2024. Previously established CHERIE is 08/03/2024. Posterior placenta. Subjectively normal amniotic fluid. Small subchorionic hemorrhage surrounding less than 20 percent circumference of the gestational sac. 2.7 cm thick walled left ovarian cyst also present on the prior study of 12/26/2023. unremarkable right ovary. Anechoic unilocular left adnexal paraovarian cyst measuring 4 cm, also present on the prior study at which time it measured 4.6 cm in greatest dimension. IMPRESSION: Cortes viable fetus. Small left subchorionic hemorrhage. Persistent left adnexal findings including a corpus luteum cyst and paraovarian simple cyst. Dictated by Toney Murray MD @ 01/18/2024 2:34:24 PM (Electronically Signed)
== END 2024-01-18 13:38 | disposition home or self-care (01) ==
LOC: US 13:38
PROVIDERS: Visit Provider Advanced Practice Midwife
DX: O20.9 Hemorrhage in early pregnancy, unspecified (principal); O34.81 Maternal care for other abnormalities of pelvic organs, first trimester; N83.202 Unspecified ovarian cyst, left side; Z3A.12 12 weeks gestation of pregnancy
CPT/HCPCS: 76801; 87086

== ENCOUNTER 2024-03-14 10:05 | Outpatient (CLI) | payer BC, SELFPAY ==
--- OUTSIDE RECORDS SUMMARY | 2024-03-14 10:07 | XMS_ITS | Clinical Summary ---
Author Organization [facility] Address [place], [place] [address] Care Team Providers Care Box Office Attendant Name Role Phone Clinic, [facility] Primary Care Pr ovider Allergies Active Allergy Reactions Criticality Noted Date [...] 2023 Pap test for age 21-65 10/16/2023 , 10/15/2020, 09/20/2017, Additional history exists Influenza for age 9-49 03/30/2024 08/28/2014 Pneumococcal series for age 6-64 Aged Out No longer eligible based on patient's age to complete this topic Procedures Procedure Name Priority Date/Time Associated Diagnosis Comments CRYSTAL CALIBRATOR THIN PREP PAP SCREEN IMAGED Routine 10/15/2020 8:30 AM CDT from Last 3 Months or Most Recently Relevant to Health Maintenance Results * CRYSTAL CALIBRATOR THIN PREP PAP SCREEN IMAGED (10/15/2020 8:30 AM CDT) Case Report Gynecologic Cytology Report ? Case: [id number] ? Authorizing Provider: ??Unknown, Doctor ?Collected: ? 10/15/2020 0830 ? Ordering Location: ? [facility] ?Received: ?10/18/2020 0958 ? First Screen: ?Bacdemi, Albina ? Specimen: ?CRYSTAL CALIBRATOR ThinPrep Vial Screening, Cervical/Vaginal ? 10/22/2020 4:04 PM CDT [facility] INTERPRETATION/ RESULT NEGATIVE FOR INTRAEPITHELIAL LESION OR MALIGNANCY (NIL) (none) 10/22/2020 4:04 PM CDT [facility] IMEN ADEQUACY Satisfactory for evaluation Endocervical component present 10/22/2020 4:04 PM CDT [facility] HPV REQUEST HPV and PAP 10/22/2020 4:04 PM CDT [facility] Date of LMP 09/27/2020 10/22/2020 4:04 PM CDT [facility] Last Pap Date 09/20/2017 10/22/2020 4:[address] [facility] Last Pap Result NIL 4:04 PM CDT [facility] Menstrual Status 10/22/2020 4:04 PM CDT [facility] Comment:IUD Additional Information 10/22/2020 4:04 PM CDT [facility] Comment: Interpreted at [facility], Central Laboratory - [address], [place] [address] Automated Review Successful 10/22/2020 4:[address] [facility] Comment:Specimen processed s uccessfully by automated abstract maker device, ThinPrep Imaging System, [employer] ANCILLARY TESTING CRYSTAL CALIBRATOR HPV Ordered, Please see separate report 10/22/2020 4:[address] [facility] Note The pap test is a [...] malignant lesions. 10/22/2020 4:[address] [facility] Other (Cervical/Vagina l) 10/15/2020 8:30 AM CDT 10/18/2020 9:58 AM CDT Doctor Unknown [facility] [address] [place] [address], [place] from Last 3 Months or Most Recently Relevant to Health Maintenance Care Teams Box Office Attendant Relationship Specialty Start Date End Date Clinic, [facility] [address] [place] [address] PCP - General 03/10/24
--- OUTSIDE RECORDS SUMMARY | 2024-03-14 10:07 | XMS_ITS | Continuity of Care Document ---
Author Organization [facility] g[facility]ela Address [address] [place] [address] Americo [place] [address] Phone Care Team Providers Care Rn Radiation Oncology Name Role Phone Will MD SORIA, Kieran [...] Diagnoses Date Provider Providers Copied on Encounter [facility], [address] [facility] [place], [id number] , [place] tel: [phone] [facility] No Information 2 Will Kieran. [address] [facility] [place], [id number] , [place]. tel: [phone] OFFICE/OUTPAT IENT VISIT, EST [facility], [address] [facility] [place], [id number] , [place] tel: [phone] [facility] Boring Widespread pain (chief complaint) Chronic pain syndromeEhlers-D anlos syndromeLong term (current) use of opiate analgesic Dec-0 6-201 8 Hinds Morgan. [address] [place] [address] [address], [place], [place], [id number] , [place]. tel: [phone] Referring Provider: Kieran Casillas, [address] [place] [address], [address]. tel:[phone] OFFICE/OUTPAT IENT VISIT, [facility], [address] [place] [address], [id number] , [place] tel: [phone] [facility] Widespread pain (chief complaint) Jesse-Danlos syndromeChronic pain syndromeLong term (current) use of opiate analgesic Nov-0 8-201 8 Hinds Morgan. [address] [place] [address] [address], [place], [place], [id number] , [place]. tel: [phone] Referring Provider: Kieran Casillas, [address] [place] [address], [address]. tel:[phone] OFFICE/OUTPAT IENT VISIT, [facility], [address] [place] [address], [id number] , [place] tel: [phone] [facility] Widespread pain (chief complaint) Jesse-Danlos syndromeChronic pain syndrome Oct-1 0-201 8 Amos Henry. [employer], [address] [facility] [address], [address], [place]. tel: [phone] Referring Provider: Kieran Casillas, [address] [place] [address], [id number]. tel:[phone] OFFICE/OUTPAT IENT VISIT, [facility], [address] [place] [address], [id number] , [place] tel: [phone] [facility] Widespread pain (chief complaint) Chronic pain syndromeEhlers-D anlos syndrome Sep-0 7-201 8 Amos Henry. [employer], [address], [place], [address], [place]. tel:[phone] Referring Provider: Kieran Casillas, [address] [place], [address]. tel:[phone] OFFICE/OUTPAT IENT VISIT, [facility], [address] [place], [place], [id number] , [place] tel:[phone] [facility] [place] Widespread pain (chief complaint) Chronic pain syndromeEhlers-D anlos syndrome 8 Dandre Figueroa. [facility], [address], [place], [address], [place]. tel:[phone] Referring Provider: Junie Kiran, [address], [address]. tel:[phone] Family History Family Member Type Diagnosis Age At Onset Mother Problem (finding) CIVD and Fibromyalgia Father Problem (finding) Arthritis in back and k nees Payers Payer name Insurance type Covered constitution party ID Authoriza tion(s) [facility] [id number] Social History Type Description Quantity Date Captured Comments Sex Female Smoking Status No Information Chief Complaint And Reason For Visit No Information Reason For Referral Reason For Referral No Information Plan Of Treatment Date Type Action Status Future Order: Lab Order COMPLIAN CE DRUG ANALYSIS, URINE, WITH MED REPORT ([id number]), Ordered on: Ordered Future Order: Lab Order COMPLIAN CE DRUG ANALYSIS, URINE, WITH MED REPORT ([id number]), Ordered on: Ordered History Of Present Illness [...] topical Parisa during the day and topical [place] at night. States she primarily uses the [...] and medication refill. She presents with #2 [place]- on track. She reports recent fall about [...] flags or neurologic symptoms.Completed PRC program at [place]-- says it was very helpful. [facility] on and off over the last two years-- has been helpful. Reports previous x-ray at [facility]. Has taken flexeril, escitalopram, amitriptyline, and others (unspecified) for addtional pain relief. Currently taking nortriptyline and hydrocodone (once per week). States she is getting off gabapentin-- she does not like to be on medications. Reports she occasionally smokes marijuana pain-- interested in medical marijuana.Ms. Feldman would like [facility] to assume managment of pain care. Widespread [...]
--- OUTSIDE RECORDS SUMMARY | 2024-03-14 10:07 | XMS_ITS | Clinical Summary ---
Author Organization [facility] Address [address] [place] [address] Care Team Providers Care Music Worker Name Role Phone Junie Da Silva MD [...] for each transition of care or referral. [employer] Allergies Active Allergy Reactions Criticality Noted Date [...] ( - 2022-2 4 season) 2023 Influenza (#1) 2024 Zoster/Shingles (1 of 2) 10/21/2039 HPV [...] age to complete this topic Care Teams Music Worker Relationship Specialty Start Date End Date Junie Da Silva MD [address] [place] [address] PCP - General 03/03/16
--- NOTE | 2024-03-14 10:15 | CRLHL7_ITS ---
For Patients: As a result of the Century Cures Act, medical imaging exams and procedure reports are released immediately into your electronic medical record. You may view this report before your referring provider. If you have questions, please contact your health care provider. INDICATION: Evaluate anatomy. COMPARISON: 01/18/2024 TECHNIQUE: Real time groves scale imaging of the fetus was performed as well as color Doppler analysis of the umbilical vessels. FINDINGS: Sonographic imaging demonstrates a single living intrauterine gestation. Fetus demonstrates a regular cardiac rate of 154 beats per minute. Fetus has a variable position. The placenta lies right posterior without evidence of placenta previa. Placental edge 9.4 cm from the internal cervical os. Incidental placental hodges noted. Amniotic fluid volume appears normal. Single deepest vertical pocket: 5.2 cm. The cervix is closed and measures 3.8 cm in length. The composite ultrasound gestational age is calculated at 20 weeks 6 days with an estimated sonographic due date of 07/26/2024. The estimated weight is 356 grams which lies at the 86th %. The following biometric measurements were obtained: Biparietal diameter: 4.9 cm/21 weeks 0 days 91st% Head circumference: 18.5 cm/20 weeks 6 days 88th% Abdominal circumference: 16.1 cm/21 weeks 1 day 87th% Femur length: 3.1 cm/19 weeks 3 days 34th% The HC/AC ratio measures: 1.15 range (1.06-1.25) On anatomic survey, there is a normal appearance of the cerebral ventricles, cavum septi pellucidi, cisterna magna and cerebellum. The nose, lips, and facial profile appear normal. The cervical, thoracic and lumbar spine are well visualized and appear normal. There is a normal four-chamber heart view and the left and right ventricular outflow tracts appear normal. The diaphragm and stomach appear normal. The kidneys and bladder also appear normal. There is a normal three-vessel cord and cord insertion site. The four extremities appear normal. IMPRESSION: Sonographic gestational age 20 weeks 6 days and sonographic due date of 07/26/2024. Sonographic age 8 days ahead of the clinical age. No intrinsic abnormalities noted on anatomic survey. Dictated by Arnulfo Dominguez MD @ 03/14/2024 2:49:19 PM (Electronically Signed)
== END 2024-03-14 10:06 | disposition home or self-care (01) ==
LOC: US 10:05
PROVIDERS: Visit Provider Advanced Practice Midwife
DX: Z34.92 Encounter for supervision of normal pregnancy, unspecified, second trimester (principal); Z3A.20 20 weeks gestation of pregnancy
CPT/HCPCS: 76805

== ENCOUNTER 2024-06-23 14:18 | Outpatient (CLI) | payer BC, SELFPAY ==
--- OUTSIDE RECORDS SUMMARY | 2024-06-23 09:23 | XMS_ITS | Clinical Summary ---
Author Organization [facility] Address [address] [place] [address] Care Team Providers Care Groundskeeping Maintenance Worker Name Role Phone Junie Da Silva [...] for each transition of care or referral. [employer] Allergies Active Allergy Reactions Criticality Noted Date [...] 71 02/21/2018 9:41 AM CDT Temperature 36.8 C (98.3 F) 04/07/2016 9:11 AM CDT Respiratory Rate - - Oxygen Saturation - [...] HepB (1) 2008 COVID-19 Vaccine ( - 2023-2 5 season) 2024 Influenza (#1) 2024 Zoster/Shingles (1 of 2) [...] on patient's age to complete this topic RSV Aged Out No longer eligi ble based on patient's age to complete this topic MCV4 Aged Out No longer eligi ble based on patient's age to complete this topic Pneumococcal Aged Out No longer eligi ble based on patient's age to complete this topic Care Teams Groundskeeping Maintenance Worker Relationship Specialty Start Date End Date Junie Da Silva MD [address] [place] [address] PCP - General 03/03/16
--- OUTSIDE RECORDS SUMMARY | 2024-06-23 09:23 | XMS_ITS | Continuity of Care Document ---
Author Organization [facility] g[facility]ela Address [address] [place] [address] Americ[place] [address] Phone Care Team Providers Care Water Quality Assistant Name Role Phone Will MD SORIA, Kieran [...] Diagnoses Date Provider Providers Copied on Encounter [facility], [address] [facility] [place], [id number] , [place] tel: [phone] [facility] No Information 2 Will Kieran. [address] [facility] [place], [id number] , [place]. tel: [phone] OFFICE/OUTPAT IENT VISIT, EST [facility], [address] [facility] [place], [id number] , [place] tel: [phone] [facility] [place] Widespread pain (chief complaint) Chronic pain syndromeEhlers-D anlos syndromeLong term (current) use of opiate analgesic Dec-0 6-201 8 Hinds Morgan. [address] [place] [address] [address], [place], [place], [id number] , [place]. tel: [phone] Referring Provider: Kieran Casillas, [address] [place] [address], [address]. tel:[phone] OFFICE/OUTPAT IENT VISIT, [facility], [address] [place] [address], [id number] , [place] tel: [phone] [facility] Widespread pain (chief complaint) Jesse-Danlos syndromeChronic pain syndromeLong term (current) use of opiate analgesic Nov-0 8-201 8 Hinds Morgan. [address] [place] [address] [address], [place], [place], [id number] , [place]. tel: [phone] Referring Provider: Kieran Casillas, [address] [place] [address], [id number]. tel:[phone] OFFICE/OUTPAT IENT VISIT, [facility], [address] [place] [address], [id number] , [place] tel: [phone] [facility] Widespread pain (chief complaint) Jesse-Danlos syndromeChronic pain syndrome Oct-1 0-201 8 Amos Henry. [employer], [address] [facility] [address], [place], [address], [place]. tel: [phone] Referring Provider: Kieran Casillas, [address] [place] [address], [address]. tel:[phone] OFFICE/OUTPAT IENT VISIT, [facility], [address] [place] [address], [id number] , [place] tel: [phone] [facility] Widespread pain (chief complaint) Chronic pain syndromeEhlers-D anlos syndrome Sep-0 7-201 8 Amos Henry. [employer], [address], [place], [address], [place]. tel:[phone] Referring Provider: Kieran Casillas, [address] [place], [address]. tel:[phone] OFFICE/OUTPAT IENT VISIT, [facility], [address] [place], [place], [id number] , [place] tel:[phone] [facility] [place] Widespread pain (chief complaint) Chronic pain syndromeEhlers-D anlos syndrome 8 Dandre Figueroa. [facility], [address], [place], [address], [place]. tel:[phone] Referring Provider: Junie Kiran, [address], [address]. tel:[phone] Family History Family Member Type Diagnosis Age At Onset Mother Problem (finding) CIVD and Fibromyalgia Father Problem (finding) Arthritis in back and k nees Payers Payer name Insurance type Covered constitution party ID Authoriza tion(s) [facility] [id number] Social History Type Description Quantity Date Captured Comments Sex Female Smoking Status No Information Chief Complaint And Reason For Visit No Information Reason For Referral Reason For Referral No Information Plan Of Treatment Date Type Action Status Future Order: Lab Order COMPLIAN CE DRUG ANALYSIS, URINE, WITH MED REPORT ([id number]), Ordered on: Ordered Future Order: Lab Order COMPLIAN CE DRUG ANALYSIS, URINE, WITH MED REPORT ([id number]), Ordered on: Ordered History Of Present Illness [...] topical Parisa during the day and topical [place] at night. States she primarily uses the [...] and medication refill. She presents with #2 [place]- on track. She reports recent fall about [...] flags or neurologic symptoms.Completed PRC program at [place]-- says it was very helpful. [facility]went [facility] on and off over the last two years-- has been helpful. Reports previous x-ray at [facility]. Has taken flexeril, escitalopram, amitriptyline, and others (unspecified) for addtional pain relief. Currently taking nortriptyline and hydrocodone (once per week). States she is getting off gabapentin-- she does not like to be on medications. Reports she occasionally smokes marijuana pain-- interested in medical marijuana.Ms. Feldman would like [facility] to assume managment of pain [...]
--- OUTSIDE RECORDS SUMMARY | 2024-06-23 09:23 | XMS_ITS | Clinical Summary ---
Author Organization [facility] Address [place], [place] [address] Care Team Providers Care Wind Development Director Name Role Phone Clinic, [facility] Primary Care Pr ovider Allergies Active [...] for age 18-79 10/21/2007 Tetanus booster 2009 Pap test for age 21-65 10/16/2023 , 10/15/2020, 09/20/2017, Additional history exists COVID-19 vaccine series ( season) 2024 Influenza for age 9-49 03/30/2024 08/28/2014 Pneumococcal series for age 6-64 Aged Out No longer eligible based on patient's age to complete this topic Procedures Procedure Name Priority Date/Time Associated Diagnosis Comments COBOL DEVELOPER THIN PREP PAP SCREEN IMAGED Routine 10/15/2020 8:30 AM CDT from Last 3 Months or Most Recently Relevant to Health Maintenance Results * COBOL DEVELOPER THIN PREP PAP SCREEN IMAGED (10/15/2020 8:30 AM CDT) Case Report Gynecologic Cytology Report Case: [id number] Authorizing Provider: Unknown, Doctor Collected: 10/15/2020 0830 Ordering Location: [facility] Received: 10/18/2020 0958 First Screen: Baccam, Minie Specimen: COBOL DEVELOPER ThinPrep Vial Screening, Cervical/Vaginal 10/22/2020 4:04 PM CDT [facility] INTERPRETATION/ RESULT NEGATIVE FOR INTRAEPITHELIAL LESION OR MALIGNANCY (NIL) (none) 10/22/2020 4:04 PM CDT [facility] IMEN ADEQUACY Satisfactory for evaluation Endocervical component present 10/22/2020 4:04 PM CDT [facility] HPV REQUEST HPV and PAP 10/22/2020 4:04 PM CDT [facility] Date of LMP 09/27/2020 10/22/2020 4:04 PM CDT [facility] Last Pap Date 09/20/2017 10/22/2020 4:04 PM CDT [facility] Last Pap Result NIL 4:04 PM CDT [facility] Menstrual Status 10/22/2020 4:04 PM CDT [facility] Comment:IUD Additional Information 10/22/2020 4:04 PM CDT [facility] Comment: Interpreted at [facility], Central Laboratory - [address], [place] [address] Automated Review Successful 10/22/2020 4:04 PM CDT [facility] Comment:Specimen processed s uccessfully by automated glost kiln operator device, ThinPrep Imaging System, [employer] ANCILLARY TESTING COBOL DEVELOPER HPV Ordered, Please see separate report 10/22/2020 4:04 PM CDT [facility] Note The pap test is a [...] and malignant lesions. 10/22/2020 4:04 PM CDT [facility] Other (Cervical/Vagina l) 10/15/2020 8:30 AM CDT 10/18/2020 9:58 AM CDT Doctor Unknown PATHOLOGY/CYTOLOGY [facility] [address] [place] [address], from Last 3 Months or Most Recently Relevant to Health Maintenance Care Teams Wind Development Director Relationship Specialty Start Date End Date Clinic, [facility] [address] [place] [address] PCP - General 03/10/24
== END 2024-06-23 14:19 | disposition home or self-care (01) ==
PROVIDERS: Visit Provider Advanced Practice Midwife
DX: Z34.93 Encounter for supervision of normal pregnancy, unspecified, third trimester (principal); Z3A.34 34 weeks gestation of pregnancy
CPT/HCPCS: 86592

== ENCOUNTER 2024-07-18 10:00 | Outpatient (RCR) | payer BC, SELFPAY ==
--- NOTE | 2024-02-26 12:55 | PT.OPEX ---
PT [facility] Outpatient Eval PT [facility] Outpatient Eval Start: 02/22/24 17:29 Freq: Status: Active Protocol: Document 02/26/24 12:35 JAIR (Rec: 02/26/24 12:52 JAIR [email or web address]) E-signed By Gisela Meneses PT Physical Therapy Outpatient Evaluation Insurance Information Recert Due Date 05/26/24 Insurance Name Medicaid,[employer] Medical Diagnosis EDS currently - 17 weeks (CHERIE: 08-03-24) Treating Diagnosis EDS Pain in multiple jts/areas weakness Referring MD Danyelle Munguia CNM Subjective Subjective Amish () presents with diagnosis of EDS. Pt is currently with her 4th child. Her expected due date is 08-03-24. Pt gave to her son approx 1 year ago. Overall the labor and delivery went well. Pt has struggled with symptoms of EDS her entire life. Her pain level have increased with her recent . Her main c /o pain is located in her LB, B hip, B knees ad B ankles. Has noticed significant weakness in her lower abdominal which feel fatigue when she tries to do activities. Her pain does vary during the day but rates all area as a 8/10. Pain interferes with her ability to sleep, walk, prolong sit, bend, lift, reach, squat, and care for her 1 year old son. Goals for therapy include reducing her pain and improving her strength ruing this . 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 Pt stands with an ant pelvic tilt. R ant ilial rotation. Has good trunk AROM in all planes with exception of ext. Trunk ext is limited moderate+ due to pain in LS region and R SB does produce some pinching in lumbar area. Overall her LE PROM is WFL. Weakness is present in lower abdominals and in her L LE including hip flexion, quad, Gmed/ABD, and HS (4- to 4/5). Plan is to continue with pt to work on her strength/stability with her current to help reduce her symptoms related to her EDS and fibromyalgia. Pt is appropriate for further skilled PT services including use of therapeutic exercise, therapeutic activities, neuromuscular re-ed, manual therapy, and self cares for symptom reduction. Plan of Care Rehabilitation Potential Good Physical Therapy Goals Short-term goals to be completed in 4 weeks: 1. Pt will demonstrate ability to perform pelvic tilts with sitting, standing, and lying down to promote ability to maintain neutral spine in daily activities. 2. Pt will report improved ability to sleep through night waking due to LBP or B LE pain <2X/noc, 4 out of 7 nights. 3. Pt will report ability to bend with don and doff socks/ pants, putting on shoes with < 3/10 LBP Long-term goals to be completed in 12 weeks: 1. Pt will be independent with HEP for symptoms reduction and ability to manage changes of symptoms with 2. Pt will report ability to return to walking for fitness and symptoms reduction for 15 mins, 3 times a week with pain levels <4/10. 3. Pt will display good body mechanics to safely machine operator picker up her 1 yo son and to aid in transferring her sister as needed.. 4. Pt will report a reduction in her LB and B LE pain by 50% for ability to care for her sister (job) throughout her . Coordination/Communication With Referral Source Treatment Plan/Direct Interventions Joint Mobilization,Manual Therapy,Neuromuscular Re-ed, Self-Care/Home Management, Therapeutic Activities, Therapeutic Exercises Frequency/Duration 1 time a week for up to 12 visits Patient Will Be Discharged From Therapy Completion of LTG(s),Skills Plateau,Independent w/HEP, Independently Progressing Evaluation Billing Untimed Code Treatment Minutes 40 Complexity Moderate Certification Information Initial Certification Date 02/26/24 Ending Certification Date 05/26/24 Provider Signature Required Yes Provider Signature Shows Agreement With POC & Medical Necessity Physician NPI Number Write NPI# Here Physician Comment/Change : Physician Signature & Date Requested Please Sign/Date Here
--- NOTE | 2024-05-28 08:26 | PT.OPDNX ---
PT [facility] Daily Note PT [facility] Outpatient Daily Note Start: 02/22/24 17:29 Freq: Status: Active Protocol: Document 05/22/24 08:34 JAIR (Rec: 05/22/24 09:38 JAIR [id number]) E-signed By Gisela Meneses, PT PT OP Daily Progress Note Visit Information Note Type Daily Note Visit Number 12 Insurance Information Recert Due Date 08/20/24 Insurance Name Medicaid,Blue Cross/Blue Shield Medical Diagnosis EDS currently - 17 weeks (CHERIE: 08-03-24) Treating Diagnosis EDS Pain in multiple jts/areas weakness Referring MD Danyelle Munguia CNM Subjective Subjective At nights, having HAs, runny nose and post nasal drip, and feeling tired. Her asthma is acting up geraldine in the evening Has had to lie down. L subocc region hurt really bad. [place] bruised. Had to lie down. Started to have a HS into the back of her skull. The pain then extended into her UT region. Baby is moving and having more pressure along the nR side. Also feeling it really low. Pain Comments 03/08 Date of Last Physician Visit 01/18/24 Precautions Treatment Precautions/Contraindications EDS - currently 2nd trimester depression fibromyalgia arthritis Objective Patient Instructed in Risks/Benefits Yes Therapeutic Exercise Therapeutic Exercise Minutes (minutes) 28 Therapeutic Exercise: To Restore -Nustep (seated at 5, arms at Functional Status 6), L3 X 5 mins -stability ball - seated- pelvic tilts and circles, marching, marching with opp UE lift, TKE -standing - B PF/DF X 10. hip flex, ABD, marching mini squats. -Quad on airex foam - pelvic tilts. Will add in to HEP in quad or against wall. Manual Therapy Techniques Manual Therapy Minutes (minutes) 12 Manual Therapy Techniques L 1st or 2nd rib mobs seated. MWM at T1-T3. Assessed SUELLEN - visible doming. ? hernia at umbilicus. Firm content upon arrival. Able to reduce and not able to reproduce. Did educate pt on findings. Did use ktaping -4 I strips in lattice pattern to stabilize upper linea alba and umbilicus. Self Care Management Training Self-Care Activity Minutes (minutes) 8 Self Care Management Training Review of her sleeping positions-- worked on ways to help reduce post neck pain. Did educated on use of a small towel roll in pillow to better support neck. Educated on how sleeping position can at time lead ot an elevated rib. Treatment Minutes Timed Code Treatment Minutes 48 Total Treatment Time 48 Billing Units Manual Therapy Units 1 Therapeutic Exercise Units 2 Assessment/Impression Assessment/Impression Pt was struggling today. More issues with pain in the L side of the neck Did find an elevated first and hypomob 2nd rib. Able to mob with good results. Pt has altered her sleeping position due to her asthma flaring and trying to find a position she can sleep better in with her breathing difficulties. Able to do some exs but did need to slow down the pace and work more on breathing. Did assess for possible SUELLEN - ?hernia along umbilicus. Could not reproduce it with SUELLEN testing but was predominant when she initially laid down. Visible doming along umbilicus and sup . Did modify her HEP to reduce impact on abdominals. Quad position - pt did well with the PT but not with any other exs in this position. Will modify and progress her HEP as able geraldine with findings of SUELLEN symptoms. Plan of Care Physical Therapy Goals Short-term goals to be completed in 4 weeks: 1. Pt will demonstrate ability to perform pelvic tilts with sitting, standing, and lying down to promote ability to maintain neutral spine in daily activities. IMPROVED 2. Pt will report improved ability to sleep through night waking due to LBP or B LE pain <2X/noc, 4 out of 7 nights. NOT MET 3. Pt will report ability to bend with don and doff socks/ pants, putting on shoes with < 3/10 LBP IMPROVED- LIMITED BY HER PROGRESSING Long-term goals to be completed in 12 weeks: 1. Pt will be independent with HEP for symptoms reduction and ability to manage changes of symptoms with IMPROVED 2. Pt will report ability to return to walking for fitness and symptoms reduction for 15 mins, 3 times a week with pain levels <4/10. HAS NOT YET RETURNED TO THE POOL. 3. 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 IMPROVED 4. Pt will report a reduction in her LB and B LE pain by 50% for ability to care for her sister (job) throughout her . NOT MET Daily Plan of Care Continue per POC,Change POC; See Comments Daily Plan of Care Comments Will continue 1 time a week to 1 time every other week, until her delivery (CHERIE 08-03-24 ), if needed, to help reduce symptoms of pain and instability due to EDS during her current for ability to continue to care for her children and continue with her ADLs independently and safely. Recertification Information Initial Certification Date 02/26/24 Recertification Start Date 05/22/24 Recertification Due Date 08/20/24 Reasons to Continue Skilled Therapy See above Rehabilitation Potential Good Continued Plan of Care and Interventions 1 time a week to every other week X 8-10 weeks. Will cont with ther exs, NMRE, MT self care and ther act Provider Signature Shows Agreement With POC & Medical Necessity Physician Comment/Change Comment or Changes Physician NPI Number #
== END 2024-11-15 23:59 | disposition home or self-care (01) ==
PROVIDERS: Visit Provider Advanced Practice Midwife
DX: Q79.60 Ehlers-Danlos syndrome, unspecified (principal); O09.892 Supervision of other high risk pregnancies, second trimester; Z51.89 Encounter for other specified aftercare
CPT/HCPCS: 87081; 87653; 97110; 97140; 97162; 97535

== ENCOUNTER 2024-07-31 10:12 | Inpatient (IN) | payer BC, SELFPAY ==
[2024-07-31] VITALS (11 sets, daily range): BP systolic 108–129; BP diastolic 67–88; PULSE 68–110; RESP 16–18; TEMP 36.9–37.9; BMI 31.0
[2024-07-31] MEDS: miSOPROStoL 800 MCG/4 TABLET PR (14:42)
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
--- NOTE | 2024-07-31 15:32 | W.PM.OBVAGDE ---
OB Procedure Vag Delivery Mother Details Mother Details: The patient is a 33 year-old, 5, Para 3, admitted on 07/31/24 at 39.4 Days gestation. : 5 Para: 4 Weeks Gestation: 39.5 Admission Date: 07/31/24 Additional Details Amniotic Membrane Status: SROM Amniotic Membrane Rupture Date: 07/31/24 Amniotic Membrane Rupture Time: 11:34 Amniotic Membrane Fluid Description: Clear Analgesia/Anesthesia Type: None Waterbirth: Yes Pitcoin: No Intrapartal Events: None Labor Onset: 08:00 Complete: 13:44 (presumed complete with pushing) Pushin:44 Heart: heart tones during second stage were 120-130 per doppler. No decreases hear. Delivery Details Delivery Date: 07/31/24 Delivery Time: 13:53 Route of delivery: Infant Gender: Male Infant Viability: Alive; Heart Rate Present Position at Delivery: OA Delivery Details: Patient was admitted for active labor and progressed normally. She was feeling some pressure on admission but it took multiple position changes to progress to more consistent pressure and the urge to push. SROM noted at 1134 with clear fluid. Patient was presumed complete with spontaneous pushing at 1344. of a viable male at 1353 in the tub in runners pose with right knee on the bottom of the tub. Vertex delivered OA. Delivered en caul until delivery of the feet when the membranes spontaneously ruptured. there had been intermittent spontaneous leaking of a small amount of clear fluid until the time of delivery. No nuchal cord or shoulder. Body delivered easily and without incident. passed to mothers abdomen. After 30 seconds of stimulation there was not a spontaneous cry and heart rate was noted to be low so the cord was clamped and cut and baby was brought immediately to the warmer. After about 30-60 seconds of PPV breathing effort was made. He was returned to the maternal chest as soon as was able after he transitioned. APGARS were 2 at one minute and 8 at five minutes respectively. Mouth was bulb suctioned and he was deep suctioned at the warmer. Intact placenta with a 3 vessel cord delivered spontaneously at 1500. Holiness had strongly desired to not have the cord pulled on or in any interventions for delivery of the placenta. However after about 20 minutes of no indication of placental separation she agreed to gentle traction. At about 30 minutes a larger gush of blood with a a small clot was noted and she was encouraged to try and shortly after that squatting when bleeding continued and placenta was not delivered. Medications to encouraged delivery of the placenta were discussed at that time as well but she declined. At about 45 minutes the placenta was still not delivered and QBL was 600mL she did agree to Cytotec buccally. She slowly had an increase in QBL and Dr. Banks was called to assess due to the length of time since delivery and increased QBL. At the time of her assessment and was firm pressure on the cord it delivered spontaneously for Dr. Banks and was noted to be fully intact. She desires to take home her placenta and this was provided to her. Fundus firm. 1st degree identified. It was hemostatic and well approximated so was not repaired. QBL 1000 cc. A Hgb was not done on admission so one will be ordered now along with a type and screen. Repeat Hgb ordered for the morning and can consider earlier if she is symptomatic. Mother and baby stable; mother plans to breastfeed. weight 7lb 14oz.? 1 Minute Interval Total Score: 2 5 Minute Interval Total Score: 8 Additional Details Shoulder Dystocia: No Placenta Delivery Time: 15:00 Placental Delivery Description: Spontaneous Procedure Done: Global Blood Loss: 1,000 Laceration: Perineal - 1st Degree Episiotomy Description: None Blood Loss Measurement Type: QBL Bakri Used: No Sponge/Need Count Correct: Yes Cord Vessel Description: 3 Vessels Event Summary Status: Mother and infant were stable after delivery. Disposition: floor
[2024-07-31 15:51] LABS: HGB WITH REFLEX TO FERRITIN 14.3 (12.0-16.0)
[2024-08-01 02:48] VITALS: BP 117/77; PULSE 83; RESP 16; TEMP 36.7
[2024-08-01 06:38] LABS: Hemoglobin* 11.9 gm/dL (12.0-16.0)
[2024-08-01 08:30] VITALS: BP 106/73; PULSE 78; RESP 16; TEMP 36.7; O2SAT 95
--- NOTE | 2024-08-01 08:30 | P.DS_ITS ---
DS: Providers Provider Date Seen: 08/01/24 Date of admission: 07/31/24 10:12 Primary care physician: Not a Local Provider Admitting Clinician: Arabella Slater CNM Attending Physician on discharge: Michaelle ESPANA Date of Discharge: 08/01/24 DS: Diagnosis Discharge Diagnosis (1) (normal spontaneous vaginal delivery): Status: Acute (2) care and examination of lactating mother: Status: Acute Exam Narrative: Exam Narrative: GENERAL APPEARANCE:? normal affect, alert, no distress MOOD:? appropriate CHEST:? clear to auscultation HEART:? regular rate and rhythm ABDOMEN:? soft, non-tender the uterine fundus is At Umbilicus, Midline and is appropriate for the stage of recovery. PERINEUM:?deferred EXTREMITIES:? normal and no edema Const: Vital Signs, click to edit/add: Vital Signs - 24 hr 07/31/24 13:15 07/31/24 15:02 07/31/24 15:02 Temperature Pulse Rate 68 88 Pulse Rate [Pulse Oximeter] Respiratory Rate 18 Blood Pressure 110/67 124/75 Blood Pressure [Le ft Arm] Oxygen Delivery [facility] 07/31/24 15:17 07/31/24 15:32 07/31/24 15:47 Temperature Pulse Rate 110 H 108 H Pulse Rate [Pulse Oximeter] Respiratory Rate Blood Pressure 129/76 128/83 127/86 Blood Pressure [Le ft Arm] Oxygen Delivery [facility] 07/31/24 15:47 07/31/24 16:27 07/31/24 16:27 Temperature 100.2 F H Pulse Rate 105 H Pulse Rate [Pulse Oximeter] Respiratory Rate 18 Blood Pressure 117/84 Blood Pressure [Le ft Arm] Oxygen Delivery [facility] 07/31/24 16:27 07/31/24 16:43 07/31/24 16:43 Temperature Pulse Rate 93 Pulse Rate [Pulse Oximeter] Respiratory Rate 18 18 Blood Pressure 109/80 Blood Pressure [Le ft Arm] Oxygen Delivery [facility] 07/31/24 17:06 07/31/24 17:06 07/31/24 17:06 Temperature 100.1 F H 100.1 F H Pulse Rate 90 Pulse Rate [Pulse Oximeter] Respiratory Rate 18 Blood Pressure 116/76 Blood Pressure [Le ft Arm] Oxygen Delivery [facility] 07/31/24 18:30 07/31/24 19:53 07/31/24 23:44 Temperature 99.4 F 98.5 F 98.5 F Pulse Rate Pulse Rate [Pulse Oximeter] 98 83 Respiratory Rate 16 18 Blood Pressure Blood Pressure [Le ft Arm] 108/76 129/88 Oxygen Delivery Me thod Room Air 08/01/24 02:48 Temperature 98.1 F Pulse Rate Pulse Rate [Pulse Oximeter] 83 Respiratory Rate 16 Blood Pressure Blood Pressure [Le ft Arm] 117/77 Oxygen Delivery Me thod OB - DS: Summary Hospital Course Hospital Course: Ishmael is a 33 y.o. G 5 P 4014 who was admitted to L & D for active labor.? She had a NVD that was complicated by prolonged third stage per patient directions with EBL of 1000cc. The patient feels well.? The pain is well controlled with current medications.? She has no new complaints.? She is breast feeding and reports things are going well, but will start to use a nipple shield since her nipples are a little flat. Decline LC visit. the patient has done well.? Vitals have been stable.? She has remained afebrile.? Has a good appetite, is tolerating a general diet.? She is voiding without difficulty.? She is passing gas and has had a bowel movement.? She is ambulating and denies any dizziness.? Has small amount of rubra lochia. She is planning NFP for prevention.? ?? Problems: none? Peripartum Data Infant delivery method: Vaginal Laceration description: Perineal - 1st Degree (not repaired) Episiotomy description: None complications: none Infant Gender: Male Infant Discharge Plan: Home Status at Discharge Functional status at discharge: independent ambulation Overall status at discharge: patient is progressing back to baseline Time Spent with Patient Time attestation: Total time spent providing and/or coordinating discharge services: Time spent: Less than 30 minutes Discharge Plan Discharge Disposition: Home, Self-Care Date of Admission: 07/31/24 10:12 Attending Provider on Discharge: Jennyfer Louis Primary Care Provider: Provider,Not a Local Condition: Stable Anticipated Discharge Date/Time: 08/01/24 14:38 Discharge Medications: Continued prenat.vits,betina,[id number] Tablet 1 tab PO QDAY Discontinued metoclopramide HCl [Reglan] 10 mg tablet 10 mg PO Q6H PRN (Reason: headache) Qty: 30 0RF (DME) Test Strips Misc See Rx Instructions .MEDSUPPLY Qty: 100 0RF Rx Instructions: Test blood sugar 4 times daily. (DME) lancets Misc See Rx Instructions .MEDSUPPLY Qty: 100 0RF Rx Instructions: Test blood sugar 4 times daily. (DME) Blood Glucose Meter Misc See Rx Instructions .MEDSUPPLY Qty: 1 0RF Rx Instructions: As directed Discharge Orders: Discharge Order (Routine); Ordered 08/01/24 Ordered By: Jennyfer Louis Patient Education: OB [place] [facility], OB Vaginal/Breast Feeding Additional Instructions: Discharge instructions were reviewed with the patient including signs and symptoms of infection and home going medications Nothing vaginally for 6 weeks: no tampons or intercourse Do not drive while taking narcotic pain medication(s) Off Work or School for 6 weeks Symptoms to report to doctor: * Bleeding that saturates more than one pad per hour * Passing clots larger than the size of a golf ball * Pain not relieved by prescribed medication * Fever above 100.4 degrees Fahrenheit * A foul vaginal odor * Difficulty in emotions, mood, and functions * Thoughts of hurting yourself and/or * Painful, reddened area in your breast * Any drainage, redness, or tenderness in your IV/epidural site * Severe headache that doesn't improve after taking medications * Changes in vision, including temporary loss of vision, blurred vision, and/or light sensitivity * Upper abdominal pain (usually under ribs on the right side) * Decrease in urination or painful, frequent urinating * Chest pain * Shortness of breath * Tenderness or pain with redness and/swelling in the calf(s) of your leg 2-week visit: discuss infant feeding concerns, review control options and screen for anxiety/depression. 6-week visit for an annual exam. consultation services are available to all mothers and babies for the first year after delivery.? To make an appointment, please call [phone]. For pain control of perineum, breast and pelvic pain, take 600 mg Ibuprofen every 6 hours as needed by mouth or 1000 mg acetaminophen (Tylenol) every 6 hours by mouth as needed. You can alternate these so you are taking something every 3 hours as needed. A heating pad can also be used for your abdomen or breasts. You may also take docusate sodium up to twice daily to soften your stools and help to prevent constipation. You may wean off of it when your stools return to normal.? Activity Level: Activity as Tolerated Discharge Diet: Regular Follow Up Appointments: [facility] [Provider Group] Forms: [facility] Info Instructions
[2024-08-01 12:33] VITALS: BP 100/70; PULSE 90; RESP 14; TEMP 36.7; O2SAT 96
[2024-08-02 17:49] LABS: Rapid Plasma Reagin (RPR) Non Reactive (Non Reactive)
== END 2024-08-01 15:54 | disposition home or self-care (01) | DRG 560 ==
LOC: OB OUT 10:14 → OB 10:14
PROVIDERS: Admitting Provider Advanced Practice Midwife; Visit Provider Advanced Practice Midwife
DX: O99.344 Other mental disorders complicating childbirth (principal); F41.9 Anxiety disorder, unspecified; F32.A Depression, unspecified; Z91.411 Personal history of adult psychological abuse; O70.0 First degree perineal laceration during delivery; O99.892 Other specified diseases and conditions complicating childbirth; J45.990 Exercise induced bronchospasm; Q79.62 Hypermobile Ehlers-Danlos syndrome; M79.7 Fibromyalgia; Z3A.39 39 weeks gestation of pregnancy; Z37.0 Single live birth
CPT/HCPCS: 36415; 85018; 86592; 86850; 86900; 86901; A9270

== ENCOUNTER 2024-12-13 20:38 | Emergency (ER) | payer BC, SELFPAY ==
--- NOTE | 2024-12-13 | CRLHL7_ITS ---
For Patients: As a result of the Century Cures Act, medical imaging exams and procedure reports are released immediately into your electronic medical record. You may view this report before your referring provider. If you have questions, please contact your health care provider. INDICATION: Low back pain TECHNIQUE: Ultrasound OB pelvis transvaginal. Real time groves scale imaging of the pelvis was performed. COMPARISON: None FINDINGS: Gestational sac: Sonographic imaging demonstrates a single intrauterine gestation with a normal appearance. No evidence of a perigestational hemorrhage is seen. The amount of fluid within the sac appears appropriate for gestational age. Fetus: The embryo demonstrates a regular cardiac rate measuring 171 beats per minute. The embryo`s crown rump length measurement of 1.8 mm corresponds to a gestational age of 8 weeks, 2 days. There are no gross abnormalities noted within the embryo at this early state of development. There is a normal appearing yolk sac. Placenta: The placenta has not yet developed. Pelvis: The visualized cervix is closed. The visualized myometrium appears normal. The right ovary measures 3.5 x 2.6 x 3.3 cm and the left ovary measures 3 x 2.2 x 1.5 cm. A thick-walled cystic structure is present within the right ovary measuring 2.6 x 2.9 cm and may represent a corpus luteum. There is a cystic structure adjacent to the left ovary measuring 4 x 3.5 x 2.3 cm and has a small mural nodule measuring 2 mm. No significant ascites noted. IMPRESSION: 1. Single viable intrauterine with an estimated gestational age of 8 weeks, 2 days. 2. There is a cystic structure adjacent to the left ovary measuring 4 x 3.5 x 2.3 cm. This may represent a paraovarian cyst with a small mural nodule measuring 2 mm. Impression Comparison with any prior outside imaging is recommended. If these cannot be obtained, follow up pelvic ultrasound is recommended to document stability or resolution. Dictated by Sarwat Webb MD @ 12/13/2024 11:28:00 PM Dictated by: Sarwat Webb MD @ 12/13/2024 23:28:03 (Electronically Signed)
[2024-12-13 20:42] VITALS: BP 111/77; PULSE 98; RESP 22; TEMP 36.6; O2SAT 99; BMI 26.5
--- NOTE | 2024-12-13 21:02 | ED_ITS ---
HPI - Back Pain/Injury General Date Seen: 12/13/24 Chief Complaint: Back Injury/Pain Stated Complaint: extreme back pain Time Seen by Provider: 12/13/24 20:49 Source: patient Mode of arrival: ambulatory Limitations: no limitations History of Present Illness HPI Narrative: Patient is a 34-year-old female who is currently 7 weeks presenting to the emergency department for severe lower back pain. She states she started noticing the back pain this morning and later on was doing some housework when she felt a getting worse. She then bent over and she felt like her back throughout. States is a 10/10 sharp pain in the lower back worse on the left. States she has had this pain once before a few years ago when she had a ruptured ovarian cyst during different . Does not have any vaginal cramping at this time she states denies any vaginal bleeding. Does not feel lightheaded or dizzy. Denies any chest pain or shortness of breath. Denies any trauma to her back. Pain does slightly radiate down her left leg. No other concerns noted Related Data Home Medications ?Medication ?Instructions ?Recorded ?Confirmed prenat.vits,betina,ezn-hjoh-vkrax 1 tab PO QDAY 08/04/22 08/15/24 Allergies Allergy/AdvReac Type Severity Reaction Status Date / Time Sulfa (Sulfonamide Allergy Rash Verified 08/15/24 09:35 Antibiotics) Review of Systems Status of ROS: Reports: 10 or more systems reviewed and unremarkable except as noted in History and below [facility] Medical History Anxiety and depression ?F41.9 - Anxiety disorder, unspecified (ICD-10) ?F32.A - Depression, unspecified (ICD-10) Osteoarthritis ?M19.90 - Unspecified osteoarthritis, unspecified site (ICD-10) Mild exercise-induced asthma ?J45.990 - Exercise induced bronchospasm (ICD-10) Joint hyperextensibility of multiple sites ?M24.80 - Other specific joint derangements of unspecified joint, not elsewhere classified (ICD-10) 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, unspecified (ICD-10) Chronic pain of both knees ?M25.561 - Pain in right knee (ICD-10) ?M25.562 - Pain in left knee (ICD-10) ?G89.29 - Other chronic pain (ICD-10) Chronic low back pain ?M54.50 - Low back pain, unspecified (ICD-10) ?G89.29 - Other chronic pain (ICD-10) Chronic pain ?G89.29 - Other chronic pain (ICD-10) Insomnia ?G47.00 - Insomnia, unspecified (ICD-10) Fibromyalgia ?M79.7 - Fibromyalgia (ICD-10) Hemorrhoids ?K64.9 - Unspecified hemorrhoids (ICD-10) UTI (urinary tract infection) ?N39.0 - Urinary tract infection, site not specified (ICD-10) Spontaneous in first trimester (02/2022) ?O03.9 - Complete or unspecified spontaneous without complication (ICD-10) Infection due to severe acute respiratory syndrome coronavirus 2 (SARS-CoV-2) ?U07.1 - COVID-19 (ICD-10) Spasm of cervical paraspinous muscle ?M62.838 - Other muscle spasm (ICD-10) Radiculitis ?M54.10 - Radiculopathy, site unspecified (ICD-10) depression ?F53.0 - depression (ICD-10) History of vaginal delivery Surgical History [place] teeth extracted ?K08.409 - Partial loss of teeth, unspecified cause, unspecified class (ICD- 10) History of right knee surgery (2008) ?Z98.890 - Other specified postprocedural states (ICD-10) Family History Brother Alcoholism Anxiety disorder Family/Other Alcoholism Father Anxiety disorder Diabetes Family history of early CAD Arthritis Mother Anxiety disorder Fibromyalgia Immune deficiency disorder Family/Other Anxiety disorder Sister Asthma FH: Down syndrome Paternal Grandfather Family history of stroke Other Migraine Social History Narrative: SOCIAL Education: High School/some college 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 Seat Belt Use: Routinely Smoking: Denies past -quit 11 years ago - was smoking a pack a day Alcohol/day: Denies while Caffeine: yes - trying to limit, discussed 200mg limit recommendation Drug Use: Denies past/present Chicken Pox: Yes as a child MRSA: Denies COVID vaccine/boosters: had covid a year ago, declines vaccine at this time Flu vaccine: no What is your current living situation?: I presently have a place to live Problems where you live: no known problems In the past 12 months, utilities in danger of being shut off: no In past 12 months, lack of transportation kept you from medical appts, meetings, work, or getting things needed for daily living: no In the past 12 mos, have been you worried that your food would run out before you had money to buy more?: never true In the past 12 mos, the food you bought just didn't last and you didn't have money to buy more?: never true Smoking Status: Former smoker What tobacco products do you use: cigarettes Smoking quit date/years: <= 15 years ago Do you use any of these nicotine containing products: None Second hand tobacco smoke exposure: No How often do you have a drink containing alcohol: never How often do you have six or more drinks on one occasion: Never AUDIT-C Alcohol total score: 0 Non-prescribed substance use: denies use How often does anyone, including family, friends and others, physically hurt you : never How often does anyone, including family, friends and others, insult or talk down to you: rarely How often does anyone, including family, friends and others, threaten you with harm: never How often does anyone, including family, friends and others, scream or curse at you: never service: No Health Related Social Needs: Other personal risk factors, not elsewhere classified (Z91.89) Exam Narrative: Exam Narrative: Const: Well-nourished, Well-developed, in mild distress Eyes: PERRL, no conjunctival injection, and symmetrical lids HENT: Atraumatic external nose and ears. Moist mucous membranes. Neck: Symmetric, trachea midline, No thyromegaly. CVS: RRR, No murmurs or gallops. Peripheral pulses 2+ and equal in all extremities RESP: Unlabored respiratory effort. Clear to auscultation bilaterally. GI: Nontender/Nondistended, No rebound or guarding. MSK:Extremities w/o deformity, Normal Active ROM, mild to moderate tenderness left lower paraspinal muscles Skin: Warm, Dry. No rashes or lesions. Neuro: Normal Muscle tone, No focal neurological deficits. Psych: Awake, Alert, & Oriented x3. Appropriate mood and affect. Const: Vital Signs, click to edit/add: Vital Signs - 24 hr 12/13/24 20:42 Temperature 97.9 F Pulse Rate [Left P ulse Oximeter] 98 Respiratory Rate 22 Blood Pressure [Ri ght Upper Arm] 111/77 Pulse Oximetry 99 Oxygen Delivery Me thod Room Air Course Vital Signs Vital signs: Initial Vital Signs Temperature 97.9 F 12/13/24 20:42 Temperature Source Temporal Artery Scan 12/13/24 20:42 Pulse Rate 98 12/13/24 20:42 Pulse Rhythm Regular 12/13/24 20:42 Respiratory Rate 22 12/13/24 20:42 Blood Pressure 111/77 12/13/24 20:42 Blood Pressure Mean 88 12/13/24 20:42 Blood Pressure Position Sitting 12/13/24 20:42 Pulse Oximetry 99 12/13/24 20:42 Oxygen Delivery Method Room Air 12/13/24 20:42 Vital Signs Temperature 97.9 F 12/13/24 20:42 Pulse Rate 98 12/13/24 20:42 Respiratory Rate 22 12/13/24 20:42 Blood Pressure 111/77 12/13/24 20:42 Pulse Oximetry 99 12/13/24 20:42 Oxygen Delivery Method Room Air 12/13/24 20:42 Temperature 97.9 F 12/13/24 20:42 Pulse Rate 98 12/13/24 20:42 Respiratory Rate 22 12/13/24 20:42 Blood Pressure 111/77 12/13/24 20:42 Pulse Oximetry 99 12/13/24 20:42 Oxygen Delivery Method Room Air 12/13/24 20:42 Medications Administered Medications: Discontinued Medications Generic Name Dose Route Start Last Admin Trade Name Jesus PRN Reason Stop Dose Admin Acetaminophen 1,000 mg 12/13/24 20:58 12/13/24 21:04 Acetaminophen 500 Mg Tablet PO 12/13/24 20:59 1,000 mg ONCE ONE Administration Oxycodone HCl 5 mg 12/13/24 22:07 12/13/24 22:13 Oxycodone 5 Mg Tablet PO 12/13/24 22:08 5 mg ONCE ONE Administration MDM - Back Pain/Injury MDM Narrative Medical decision making narrative: Patient is a 34-year-old female presenting for low back pain. States she has had pain like this before and it was from a ruptured ovarian cyst. Considering she is and has not had an ultrasound yet I will do an ultrasound to make sure this is not an ectopic . Pain was nontraumatic so it seems unlikely it is related to any lumbar fractures so x-rays not necessary. Will also check a CBC, BMP and quantitative hCG. Given Tylenol for pain. Tylenol did not help with pains oxycodone was given. Lab work shows no acute concerning abnormalities. Potassium slightly low at 3.2. HCG quantitative is 137,110. Ultrasound returned showing a intrauterine and a 3.9 left ovarian cyst. While this cyst is just about big enough to be a concern for ovarian torsion the pain is more in her back and her pelvic region and has been constant and she is having the pain when the ultrasound was done. This was a torsion I would expect the torsion to be seen on the ultrasound in this specific case as the pain is not intermittent and has been constant. Pain was slightly improved with a oxycodone. At this time I believe she is safe for discharge. Based on her description this does seem like sciatica. Patient denies saddle anesthesia, urinary retention, bowel or bladder incontinence, fevers or chills. No red flag symptoms for cauda equina. She will be discharged home with oxycodone via instymeds. She is agreeable to this plan. Lab Data Labs: Lab Results 12/13/24 Range/Units 21:15 WBC 7.42 (4.50-11.00) K/uL RBC 4.41 (4.00-5.20) m/uL Hgb 13.1 (12.0-16.0) gm/dL Hct 38.7 (33.0-51.0) % MCV 88 (80-100) fL MCH 30 (26-34) pg MCHC 34 (32-36) gm/dL RDW Coeff of Taco 12.8 (11.5-15.5) % Plt Count 205 (140-440) K/uL Neut % (Auto) 54.0 (42.0-72.0) % Lymph % (Auto) 36.5 (20-44) % Greene % (Auto) 6.7 (0.0-11.0) % Eos % (Auto) 1.9 (0.0-7.0) % Baso % (Auto) 0.1 (0.0-3.0) % Neut # (Auto) 4.00 (1.7-7.0) K/uL Lymph # (Auto) 2.71 (0.90-2.90) K/uL Greene # (Auto) 0.50 (0.00-0.90) K/UL Eos # (Auto) 0.14 (0.00-0.50) K/uL Baso # (Auto) 0.01 (0.00-0.30) K/uL Abs Immat Gran (auto) 0.06 (0.00-0.30) K/uL Imm/Tot Granulo (auto) 0.8 % Sodium 138 (135-149) mmol/L Potassium 3.2 L (3.6-5.1) mmol/L Chloride 106 (96-114) mmol/L Carbon Dioxide 23 (20-32) mmol/L Anion Gap 9 (7-15) mEq/L BUN 9 (5-24) mg/dL Creatinine 0.5 (0.5-1.5) mg/dL Estimated Creat Clear 118.50 Estimated GFR 125 ml/min Glucose 104 (60-115) mg/dL Calcium 8.9 (8.4-10.6) mg/dL HCG, Quant 967227.00 mIU/mL Imaging Data Pelvic ultrasound: Attestation: I have reviewed the pertinent imaging results. Radiologist's impression: 1. Single viable intrauterine with an estimated gestational age of 8 weeks, 2 days. 2. There is a cystic structure adjacent to the left ovary measuring 4 x 3.5 x 2.3 cm. This may represent a paraovarian cyst with a small mural nodule measuring 2 mm. Impression Comparison with any prior outside imaging is recommended. If these cannot be obtained, follow up pelvic ultrasound is recommended to document stability or resolution. Dictated by Sarwat Webb MD @ 12/13/2024 11:28:00 PM Discharge Plan Discharge Clinical Impression: Lumbar radiculopathy Patient Disposition: Home, Self-Care Condition: Stable Instructions: Back Pain (ED) Additional Instructions: I do believe this back pain is musculoskeletal in nature. Take Tylenol and the oxycodone for the pain. Talk to your OB Gyne before getting any further oxycodone prescriptions. If symptoms are not improving by Sunday recommend following up with her primary care provider and/or Ob Gyne. The ultrasound shows a left ovarian cyst. I do not believe this is causing her pain right now but I do recommend close follow-up with your OB Gyne for it. Prescriptions: No Action prenat.vits,betina,mos-ifth-ughjh Tablet 1 tab PO QDAY Follow Up/Referrals: Provider,Not a Local [Primary Care Provider] - Stand Alone Forms: [employer] Info Instructions
[2024-12-13] MEDS: ACETAMINOPHEN 500 MG TABLET 1000 MG PO (21:04)
[2024-12-13 21:27] LABS: Basophils Absolute Auto 0.01 K/uL (0.00-0.30); Basophils Percent Auto 0.1 % (0.0-3.0); Eosinophils Absolute Auto 0.14 K/uL (0.00-0.50); Eosinophils Percent Auto 1.9 % (0.0-7.0); Hematocrit 38.7 % (33.0-51.0); Hemoglobin* 13.1 gm/dL (12.0-16.0); Immature Granulocytes Abs Auto 0.06 K/uL (0.00-0.30); Immature Granulocytes Pct Auto 0.8 %; Lymphocytes Absolute Auto 2.71 K/uL (0.90-2.90); Lymphocytes Percent Auto 36.5 % (20-44); Mean Corpuscular HGB Conc 34 gm/dL (32-36); Mean Corpuscular Hemoglobin 30 pg (26-34); Mean Corpuscular Volume 88 fL (80-100); Monocytes Percent Auto 6.7 % (0.0-11.0); Platelet Count* 205 K/uL (140-440); RDW Coefficient of Variation % 12.8 % (11.5-15.5); Red Blood Count 4.41 m/uL (4.00-5.20); White Blood Count* 7.42 K/uL (4.50-11.00)
[2024-12-13 21:28] LABS: Slide Review Reflex No
[2024-12-13 21:40] LABS: Chloride* 106 mmol/L (96-114)
[2024-12-13 21:41] LABS: Potassium* 3.2 mmol/L (3.6-5.1); Sodium* 138 mmol/L (135-149)
[2024-12-13 21:43] LABS: Blood Urea Nitrogen* 9 mg/dL (5-24); Creatinine* 0.5 mg/dL (0.5-1.5); Estimated Glomerular Filt Rate 125 ml/min
[2024-12-13 21:44] LABS: Anion Gap 9 mEq/L (7-15); Calcium* 8.9 mg/dL (8.4-10.6); Carbon Dioxide* 23 mmol/L (20-32); Glucose* 104 mg/dL (60-115)
[2024-12-13] MEDS: OXYCODONE 5 MG TABLET PO (22:13)
--- OUTSIDE RECORDS SUMMARY | 2024-12-14 17:37 | XMS_ITS | Clinical Summary ---
Author Organization [facility] [facility] Address [address] [place] [address] Care Team Providers Care Machine Feed Operator Name Role Phone Pcp, No Primary Care Provider Unavailabl e Allergies Active Allergy Reactions Criticality Noted Date Comments Sulfa (Sulfonamide Antibiotics) Rash 06/30 Medications cyclobenzaprine (FLEXERIL) 10 mg tablet Take 1 tablet by mouth 3 times daily. 0 03/08/2015 Active docusate (COLACE) 100 mg capsuleIndicati ons:Left upper quadrant pain 2 caps 2x per day for one week, then decrease 2 at bedtime for a week, then continue once daily 90 capsule 1 03/08/2015 Active escitalopram oxalate (LEXAPRO) 10 mg tabletIndicatio ns:Generalized anxiety disorder Take 1 tablet by mouth once daily. 30 tablet 1 03/08/2015 Active Active Problems No known active problems Immunizations Immunization Administration Dates Next Due Influenza, IIV4 08/28/2014 [...] drink = 0.6 oz pur e alcohol) Comments No Sex and Gender Information Value Date Recorded Sex Assigned at Not on file Legal Sex Female 8:40 PM GINNER Gender Identity Not on file Sexual Orientation Not on file Obstetrics History Para Term AB IAB SAB Ectopic Multiple Livin g Live Births 1 07 30 1 Date Outcome GA Total Labor Labor/2nd/3rd [...] COVID-19 vaccine series ( season) 2024 Influenza Vaccine (Season Ended) 2025 08/28/2014 Pneumococcal series for age 6-49 Aged Out No longer eligible based on patient's age to complete this topic Procedures Procedure Name Priority Date/Time Associated Diagnosis Comments HIRED 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 THIN PREP PAP SCREEN IMAGED Routine 10/15/2020 8:30 AM CDT from Last 3 Months or Most Recently Relevant to Health Maintenance Results * HIRED WORKER THIN PREP PAP SCREEN IMAGED (10/15/2020 8:30 AM CDT) Case Report Gynecologic Cytology Report Case: [id number] Authorizing Provider: Unknown, Doctor Collected: 10/15/2020 0830 Ordering Location: [facility] Received: 10/18/2020 0958 First Screen: Baccam, Minie Specimen: HIRED WORKER ThinPrep Vial Screening, Cervical/Vaginal 10/22/2020 4:04 PM CDT [facility] INTERPRETATION/ RESULT NEGATIVE FOR INTRAEPITHELIAL LESION OR MALIGNANCY (NIL) (none) 10/22/2020 4:04 PM CDT [facility] at 1604 CDT SPECIMEN ADEQUACY Satisfactory for evaluation Endocervical component present 10/22/2020 4:04 PM CDT [facility] HPV REQUEST HPV and PAP 10/22/2020 4:04 PM CDT [facility] Date of LMP 09/27/2020 10/22/2020 4:04 PM CDT [facility] Last Pap Date 09/20/2017 10/22/2020 4:04 PM CDT [facility] Last Pap Result NIL 4:04 PM CDT [facility] Menstrual Status 10/22/2020 4:04 PM CDT [facility] Comment:IUD Additional Information 10/22/2020 4:04 PM CDT [facility] Comment: Interpreted at [facility] - [address], [place] [address] Automated Review Successful 10/22/2020 4:04 PM CDT [facility] Comment:Specimen processed s uccessfully by automated ballpoint pens assembler device, ThinPrep Imaging System, [employer] ANCILLARY TESTING HIRED WORKER HPV Ordered, Please see separate report 10/22/2020 4:04 PM CDT [facility] Note The pap test is a [...] and malignant lesions. 10/22/2020 4:04 PM CDT [facility] Other (Cervical/Vagina l) 10/15/2020 8:30 AM CDT 10/18/2020 9:58 AM CDT us Doctor Unknown PATHOLOGY/CYTOLOGY Final Result [facility] [address] [place] [address], from Last 3 Months or Most Recently Relevant to Health Maintenance Insurance [facility] Care Teams Machine Feed Operator Relationship Specialty Start Date End Date Pcp, No . PCP - General 08/07/24
--- OUTSIDE RECORDS SUMMARY | 2024-12-14 17:38 | XMS_ITS | Continuity of Care Document ---
Author Organization [facility] Address [address] [place] [address] [place] [address] Phone Care Team Providers Care Automobile Wrecker Name Role Phone Will MD SORIA, Kieran [...] Diagnoses Date Provider Providers Copied on Encounter [facility], [address] [facility] [place], [place], [id number] , [place] tel: [phone] [facility] No Information 2 Will Kieran. [address] [facility] [place], [place], [id number] , [place]. tel: [phone] OFFICE/OUTPAT IENT VISIT, EST [facility], [address] [facility] [place], [place], [id number] , [place] tel: [phone] [facility] Widespread pain (chief complaint) Chronic pain syndromeEhlers-D anlos syndromeLong term (current) use of opiate analgesic Dec-0 6-201 8 Hinds NateBrian [place], [address] [place], [address], [place]. [phone] Referring Provider: Kieran Casillas, [address] [place] [address], [id number]. [phone] OFFICE/OUTPAT IENT VISIT, [facility], [address] [place] [address], [id number] , [place] tel:[phone] [facility] Widespread pain (chief complaint) Jesse-Danlos syndromeChronic pain syndromeLong term (current) use of opiate analgesic Nov-0 8-201 8 Hinds Nate. [place], [address] [place], [address], [place]. [phone] Referring Provider: Kieran Casillas, [address] [place] [address], [id number]. [phone] OFFICE/OUTPAT IENT VISIT, [facility], [address] [place] [address], [id number] , [place] [phone] [facility] Widespread pain (chief complaint) Jesse-Danlos syndromeChronic pain syndrome Oct-1 0-201 8 Amos Henry. [employer], [address] [facility] [address], [place], [address], [place]. [phone] Referring Provider: Kieran Casillas, [address] [place] [address], [id number]. [phone] OFFICE/OUTPAT IENT VISIT, [facility], [address] [place] [address], [id number] , [place] [phone] [facility] Widespread pain (chief complaint) Chronic pain syndromeEhlers-D anlos syndrome Sep-0 7-201 8 Amos Henry. [employer], [address], [place], [address], [place]. tel:[phone] Referring Provider: Kieran Casillas, [address] [place], [address]. tel:[phone] OFFICE/OUTPAT IENT VISIT, [facility], [address] [place], [place], [id number] , [place] tel:[phone] [facility] [place] Widespread pain (chief complaint) Chronic pain syndromeEhlers-D anlos syndrome 8 Dandre Whittingtonis. [facility], [address], [place], [address], [place]. tel:[phone] Referring Provider: Junie Kiran, [facility] [address] [place], [address]. tel:[phone] Family History Family Member Type Diagnosis Age At Onset Mother Problem (finding) CIVD and Fibromyalgia Father Problem (finding) Arthritis in back and k nees Payers Payer name Insurance type Covered alliance party ID Authoriza tion(s) [facility] [id number] Social History Type Description Quantity Date Captured Comments Sex Female Smoking Status No Information Chief Complaint And Reason For Visit No Information Reason For Referral Reason For Referral No Information Plan Of Treatment Date Type Action Status Future Order: Lab Order COMPLIAN CE DRUG ANALYSIS, URINE, WITH MED REPORT ([id number]), Ordered on: Ordered Future Order: Lab Order COMPLIAN CE DRUG ANALYSIS, URINE, WITH MED REPORT ([id number]), Ordered on: Ordered History Of Present Illness [...] topical [place]a during the day and topical [place] at night. States she primarily uses the [...] and medication refill. She presents with #2 Diamond- on track. She reports recent fall about [...] incontinence (urinary). Widespread pain (comments) Ms. Raissa gamlbe is here for follow up and medications [...] flags or neurologic symptoms.Completed PRC program at [facility]-- says it was very helpful. [facility]went [facility] on and off over the last two years-- has been helpful. Reports previous x-ray at [facility]. Has taken flexeril, escitalopram, amitriptyline, and others (unspecified) for addtional pain relief. Currently taking nortriptyline and hydrocodone (once per week). States she is getting off gabapentin-- she does not like to be on medications. Reports she occasionally smokes marijuana pain-- interested in medical marijuana.Ms. Feldman would like [facility] to assume managment of pain [...]
--- OUTSIDE RECORDS SUMMARY | 2024-12-14 17:38 | XMS_ITS | Clinical Summary ---
Author Organization [facility] Address [address] [place] [address] Care Team Providers Care Full Stack Python Developer Name Role Phone Junie Da Silva MD [...] for each transition of care or referral. [employer] Allergies Active Allergy Reactions Criticality Noted Date Comments Sulfa Antibiotics Rash 03/30/2016 Medications gabapentin (NEURONTIN) 300 MG capsuleIndications: Primary osteoarthritis of both hands 8 Active drug not in computerIndications :Sports Induced Inhaler Indications: Sports Induced Inhaler Active nortriptyline (PAMELOR) 10 MG capsuleIndications: Fibromyalgia Take 1 Capsule by mouth every evening. 60 Capsule 8 Active lidocaine-prilocain e (EMLA) 2.5-2.5 % creamIndications:Pr imary osteoarthritis of both hands Apply to affected areas up to 4 times daily. Apply with a glove. 30 g 3 8 Active diclofenac (VOLTAREN) 1 % gelIndications:Prim lela osteoarthritis of both hands Apply up to 2 gm to affected areas up to 4 times daily. 100 g 3 8 Active Active Problems Problem Noted Date Diagnosed Date Primary osteoarthritis of both hands 02/21/2018 Depression 04/07/2016 Insomnia 04/07/2016 Fibromyalgia 04/07/2016 Social History Tobacco Use Types Packs/Day Years Used Date Smoking Tobacco: Former Cigarettes Smokeless Tobacco: Never Comments Unknown Sex and Gender Information Value Date Recorded Sex Assigned at Not on file Legal Sex Female 2:55 PM CDT Gender Identity Not on file Sexual Orientation [...] Services) 2005 Adult Preventive Visit 10/21/2007 DTaP/Tdap/Td Vaccine (1 - Tdap) 2008 HepB Vaccine (1) 2008 COVID-19 Vaccine (1 - 2023-2 5 season) 2024 Influenza Vaccine (Season Ended) 2025 Zoster/Shingles Vaccine (1 of 2) 10/21/2039 HPV Vaccine Aged Out No longer eligi ble based on patient's age to complete this topic HepA Vaccine Aged Out No longer eligi ble based on patient's age to complete this topic Hib Vaccine Aged Out No longer eligi ble based on patient's age to complete this topic IPV (Polio) Vaccine Aged Out No longe r eligible based on patient's age to complete this topic MCV4 Vaccine Aged Out No longer eligi ble based on patient's age to complete this topic Meningococcal B Vaccine Aged Out No l onger eligible based on patient's age to complete this topic Pneumococcal Vaccine Aged Out No long er eligible based on patient's age to complete this topic Insurance [facility] Care Teams Full Stack Python Developer Relationship Specialty Start Date End Date Junie Da Silva MD [address] [place] [address] PCP - General 03/03/16
--- OUTSIDE RECORDS SUMMARY | 2024-12-14 17:38 | XMS_ITS | Continuity of Care Document ---
Author Organization 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, [address] [place], [place], [id number] , [place] tel: [phone] [facility] No Information 2 Will Kieran. [address] [place], [place], [id number] , [place]. tel: [phone] OFFICE/OUTPAT IENT VISIT, EST [facility], [address] [place], [place], [id number] , [place] tel: [phone] [facility] Widespread pain (chief complaint) Chronic pain syndromeEhlers-D anlos syndromeLong term (current) use of opiate analgesic Dec-0 6-201 8 Hinds NateBrian Hawthorne, [address] [place], [address], [place]. [phone] Referring Provider: Kieran Casillas, [address] [place] [address], [id number]. [phone] OFFICE/OUTPAT IENT VISIT, [facility], [address] [place] [address], [id number] , [place] tel:[phone] [facility] Widespread pain (chief complaint) Jesse-Danlos syndromeChronic pain syndromeLong term (current) use of opiate analgesic Nov-0 8-201 8 Hinds Nate. Hawthorne, [address] [place], [address], [place]. [phone] Referring Provider: Kieran Casillas, [address] [place] [address], [id number]. [phone] OFFICE/OUTPAT IENT VISIT, [facility], [address] [place] [address], [id number] , [place] [phone] [facility] Widespread pain (chief complaint) Jesse-Danlos syndromeChronic pain syndrome Oct-1 0-201 8 Amos Henry. [employer], [address] [facility] [address], [place], [address], [place]. [phone] Referring Provider: Kieran Casillas, [address] [place] [address], [id number]. [phone] OFFICE/OUTPAT IENT VISIT, [facility], [address] [place] [address], [id number] , [place] [phone] [facility] Widespread pain (chief complaint) Chronic pain syndromeEhlers-D anlos syndrome Sep-0 7-201 8 Amos Henry. [employer], [address], [place], [address], [place]. tel:[phone] Referring Provider: Kieran Casillas, [address] [place], [address]. tel:[phone] OFFICE/OUTPAT IENT VISIT, [facility], [address] [place], [place], [id number] , [place] tel:[phone] [facility] [place] Widespread pain (chief complaint) Chronic pain syndromeEhlers-D anlos syndrome 8 Amos Henry. [employer] [facility], [address], [place], [address], [place]. tel:[phone] Referring Provider: Junie Kiran, [facility] [address] [place], [address]. tel:[phone] Family History Family Member Type Diagnosis Age At Onset Mother Problem (finding) CIVD and Fibromyalgia Father Problem (finding) Arthritis in back and k nees Payers Payer name Insurance type Covered democrat ID Authoriza tion(s) [facility] [id number] Social History Type Description Quantity Date Captured Comments Sex Female Smoking Status No Information Chief Complaint And Reason For Visit No Information Reason For Referral Reason For Referral No Information Plan Of Treatment Date Type Action Status Future Order: Lab Order COMPLIAN CE DRUG ANALYSIS, URINE, WITH MED REPORT ([id number]), Ordered on: Ordered Future Order: Lab Order COMPLIAN CE DRUG ANALYSIS, URINE, WITH MED REPORT ([id number]), Ordered on: Ordered History Of Present Illness [...] topical [place] during the day and topical [place] at night. States she primarily uses the [...] and medication refill. She presents with #2 Scott- on track. She reports recent fall about [...] and incontinence (urinary). Widespread pain (comments) Ms. Rasisa gamble is here for two-week follow up. [...] flags or neurologic symptoms.Completed PRC program at [facility]-- says it was very helpful. Underwent [facility] on and off over the last two years-- has been helpful. Reports previous x-ray at [facility] and [facility]. Has taken flexeril, escitalopram, amitriptyline, and others (unspecified) for addtional pain relief. Currently taking nortriptyline and hydrocodone (once per week). States she is getting off gabapentin-- she does not like to be on medications. Reports she occasionally smokes marijuana pain-- interested in medical marijuana.Ms. Feldman would like [facility] to assume managment of pain care. Functional Status Date Functional Assessmen t No Information Instructions Date Instruction Additional Infor mation No Information Assessments Type Assessment Date No Information Patient Care Teams Name Effective Dates (start - stop) Status Members No Information
== END 2024-12-13 23:43 | disposition home or self-care (01) ==
PROVIDERS: Emergency Provider Student in an Organized Health Care Education/Training Program
DX: M54.16 Radiculopathy, lumbar region (principal); Z3A.01 Less than 8 weeks gestation of pregnancy
CPT/HCPCS: 36415; 76817; 80048; 84702; 85025; 93976; 99284; A9270

== ENCOUNTER 2025-03-31 01:07 | Emergency (ER) | payer BC, SELFPAY ==
--- OUTSIDE RECORDS SUMMARY | 2025-03-31 01:09 | XMS_ITS | Clinical Summary ---
Author Organization [facility] Address [address] [place] [id number] Care Team Providers Care Manager Telecom Name Role Phone Junie Da Silva MD [...] for each transition of care or referral. [employer] Allergies Active Allergy Reactions Criticality Noted Date [...] - Tdap) 2008 HepB Vaccine (1) 2008 HPV Vaccine (1 - 3-dose SCDM series) 2016 COVID-19 Vaccine (1 - 2023-2 5 season) 2024 Influenza Vaccine (#1) 2025 Zoster/Shingles Vaccine (1 of 2) 10/21/2039 HepA Vaccine Aged Out No longer eligi [...] age to complete this topic Insurance [facility] Care Teams Manager Telecom Relationship Specialty Start Date End Date Junie Da Silva MD [address] [place] [address] PCP - General 03/03/16
--- OUTSIDE RECORDS SUMMARY | 2025-03-31 01:09 | XMS_ITS | Clinical Summary ---
Author Organization [facility] Address [address] [place] [id number] Care Team Providers Care Communications Representative Name Role Phone Rose Mims MD Primary Care Provider [phone] Allergies Active Allergy Reactions Criticality Noted Date Comments Sulfa (Sulfonamide Antibiotics) Rash 06/30 Medications PNV no.95/ferrous fum/folic ac ( ORAL) Take by mouth. 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 CHERIE:07/26/25 Early US: Date: 01/02/25 GA: 11w3d CHERIE: 07/21/25 PrePregnancy Weight: 141 Height: 5'1 BMI: 26 PLANS & FUTURE APPOINTMENTS: ULTRASOUND/GROWTH PLAN: - Through: - Growth: Next TESTING PLAN: - Testing: Through DELIVERY PLAN: - Scheduled delivery: - Preferred delivery location: PRIMARY DIAGNOSIS: 34 y.o. Estimated Date of Delivery: 07/26/25 : MATERNAL: EDS Term (2013, 2015, 2022, 2024 PPH) Short interval - last 07/2024 AMA Anxiety/Depression Exposed to Parvovirus - not ill If mono/di twins add .MONODISCHEDULE If Diabetes Program patient add .DMPCOMM PREVIOUS ULTRASOUNDS: (PCP) ECHO: SPECIALISTS/CONSULTS: Include: Specialty MD Clinic Name Phone# [place] and ADDED TO PATIENT CARE TEAM GENETICS: NIPS: low risk CARE COORDINATION: PERTINENT LABS: Labs reviewed? Normal? Blood type: A Rh Positive Antibody screen: Negative Non-[facility] labs need to be entered in EPIC? 01/21/25 PARVOVIRUS B19 HUMAN IGG positive/IGM negative PERTINENT MEDS: PROCEDURES: IF FGR <10% or EFW <2000 grams: Add FGRPCOM PLAN OF CARE: Original and updated POC 12/29/2024 Overview (03/11/2025): Estimated Date of Delivery: 07/26/25 Patient's last menstrual period was 10/19/2024 (exact date). problem list: 1. 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 Maternal echo recommended by [facility]. Prior echo was normal in 2022 2. Advanced maternal age, multigravida - Low Risk NIPT 3. Short interval - Fourth child was born 07/31/2024. 4. Parvovirus exposure, IGG labs WNL 5. Mild bilateral pyelectasis on level 2 US - Recheck with MPP at 32 weeks MPP consult/US: Intrauterine at 19w 2d. presentation is Breech. EFW 303 grams, percentile: 61. Appropriate growth No major structural anomalies identified. One minor marker of aneuploidy identified: Mild bilateral renal pyelectasis. Deepest Vertical Pocket of amniotic fluid: 5.54 cm. Placental location: Posterior. Placental edge dist from research program internship os=7.79cm The transabdominal cervical length is 3.4 cm. MCA PSV 1.06 MoM, no evidence of anemia Repeat US with MPP at 32 wks GBS: 28wk labs: Last Tdap: Per MIC 2014 Last Flu vaccine: Per [facility] 2018 OB Labs:Patient declined lab tests for Anti HIV 1/2, Varicella-Zoster V AB IGG, Anti HCV, HBSAG (HBS), Rubella immune status, GC Chlamydia and Treponema pallidum. Patient stated she has had these tests in the past with previous pregnancies with no issue. NO RESULTS ON FILE FROM PREV PREGNANCIES ABORH Date Value Ref Range Status 12/29/2024 A Rh Positive Final ANTIBODY SCREEN Date Value Ref Range Status 12/29/2024 Negative Negative Final HEMOGLOBIN Date Value Ref Range Status 12/29/2024 11.9 11.7 - 15.5 g/dL Final PLATELET COUNT Date Value Ref Range Status 12/29/2024 215 140 - 400 Thousand/uL Final Allergies Allergen Reactions Sulfa (Sulfonamide Antibiotics) Rash OB History Para Term AB Living 6 4 4 0 1 4 SAB IAB Ectopic Multiple Live Births 1 0 0 0 4 # Outcome Date GA Lbr Perico/2nd Weight Sex Type Anes PTL Lv 6 Current 5 Term 07/31/24 M Waterbirth KAMRYN Comments: Baby aspirated Complications: Hemorrhage after delivery of fetus (HC) 4 Term 03/18/23 M Waterbirth KAMRYN Complications: Ruptured ovarian cyst 3 SAB 01/27/22 8w0d SPONTANEOUS 2 Term 12/06/15 M Vag KAMRYN 1 Term 04/20/14 M Vag KAMRYN Past Medical History: . Date Asthma (HC) 2017 Exercise induced Depression 2016 History of intrauterine in previous 01/2022 Miscarriage at 8 weeks No Significant Past Medical History Urinary tract infection 2021 Had UTI's during and after this Varicella 1995 Past Surgical History: . Laterality Date (IA) NM KNEE SCOPE MED W LAT MENISCECT WWO DEBRIDE/SHAVE ANY CO 2008 Problems (from 12/25/24 to present) No problems associated with this episode. Najma Worrell RN ....12/29/2024 10:51 AM No Significant Past Medical History No Significant Past Medical History Estimated Date of Delivery Comme nts Yes 07/26/2025 Based on last me nstrual period of 10/19/2024 (Exact Date) Encounters Date Type Department Care Team Description 03/19/2025 11:45 AM CDT - 03/19/2025 11:59 PM CDT Hospital Encounter [facility] [address] [place] [address] 03/19/2025 7:30 AM CDT [facility] [address] [place] [address] Rose Mims MD Care (No concerns ) 03/18/2025 Travel 03/18/2025 Telephone [facility] [address] [place] [address] [facility] [place] Appointment 03/03/2025 8:27 AM CDT - 03/03/2025 11:59 PM CDT Hospital Encounter [facility] [address] [place] [address] hydronephrosis during , antepartum, single or unspecified fetus (HC) (Primary Dx); High risk , antepartum (HC); Supervision of high risk in second trimester (HC); Encounter for supervision of high risk multigravida of advanced maternal age, antepartum (HC); Jesse-Danlos syndrome (HC); Parvovirus exposure; AMA (advanced maternal age) multigravida 35+, second trimester (HC); Parvovirus complicating in second trimester, antepartum (HC) 03/03/[address] [facility] [address] [place] [address] [place], [place] <No scans attached> 03/03/2025 Travel 02/18/2025 7:30 AM CDT OB [facility] [address] [place] [address] [address] Rose Mims MD Care (17 weeks no concerns) 02/18/2025 Travel 02/03/2025 Travel 01/27/2025 Orders Only [facility] [address] [place] [address] [address] Rose Mims MD 1 scan: (1-Ord) ENRIQUETA CARTER SCREEN, 01/21/2025 01/22/2025 Transcribe Orders [facility] [address] [place] [address] Rose Mims MD 01/21/2025 7:30 AM CDT OB [facility] [address] [place] [address] [address] Rose Mims MD Care (Patient states she may have been exposed to fifth disease approximately around 8 weeks .) 01/21/2025 Travel 01/05/2025 [facility]phone [facility] [address] [address] Rose Mims MD Results 01/02/2025 3:15 PM CDT Ancillary Procedure [facility] [address] [place] [address] 01/02/2025 Travel 12/29/2024 11:45 AM CDT Orders Only [facility] [address] [place] [address] Lab, [place] [facility] 12/29/2024 9:00 AM CDT OB [facility] [address] [place] [address] Education (RN OB intake) 12/29/2024 Travel from Last 3 Months Immunizations Immunization Administration Dates Next Due Influenza, IIV4 05/14/2018,06/08/2015,08/28/2014 Tdap 02/17/2014 Family History Medical History Relation Name Comments Depression Brother 1 Alcoholism Brother 2 Anxiety disorder Brother 2 Depression Brother 2 Anxiety disorder Brother 3 Depression Brother 3 Depression Brother 4 Alcoholism Father Aortic aneurysm Father Arthritis Father Hyperlipidemia Father Hypertension Father Cancer-prostate Maternal Grandfather No Known Problems Maternal Grandmother Asthma Mother COPD Mother Common variable immune deficiency Mother Stroke Paternal Grandfather Other cancer Paternal Grandmother at a young age from a heart problem Asthma Sister 1 Asthma Sister 2 Asthma Sister 3 Down syndrome Sister 3 Good Health Son 1 Good Health Son 2 Good Health Son 3 Good Health Son 4 Relation Name Status Comments Brother 1 Alive Brother 2 Alive Brother 3 Alive Brother 4 Alive Father Alive Maternal Aunt Alive Maternal Grandfather Maternal Grandmother Maternal Uncle Alive Mother Alive Paternal Aunt Alive Paternal Grandfather Paternal Grandmother Sister 1 Alive Sister 2 Alive Sister 3 Alive Son 1 Alive Son 2 Alive Son 3 Alive Son 4 Alive Social History Tobacco Use Types Packs/Day Years Used Date Smoking Tobacco: Former Cigarettes 1 19.7 S tarted: 2006 Passive Smoke Exposure: Never Smokeless Tobacco: Never Tobacco Cessation:Counseling Given: Not Answered Alcohol Use Standard Drinks/Week Comments Not Currently 0 (1 standard drink = 0.6 oz pure alcohol) 2 drinks a couple times a month PHQ-2 Answer Date Recorded PHQ-2 TOTAL SCORE 2 12/29/2024 Social Connections Answer Date Recorded Do you often feel lonely or isolated from those around you? 0 12/25/2024 Financial Resource Strain Answer Date R ecorded Difficulty of Paying Living Expenses 3 12/25/2024 Difficulty of Paying Living Expenses Not on file 12/25/2024 Food Insecurity Answer Date Recorded Do you worry your food will run out before you are able to buy more? 1 12/25/2024 Transportation Needs Answer Date Record ed Does lack of transportation keep you from medica l appointments? 1 12/25/2024 Does lack of transportation keep you from work, meetings or getting things that you need? 1 12/25/2024 Housing Stability Answer Date Recorded What is your housing situation today? 1 12/25/2024 Utilities Answer Date Recorded Do you have trouble paying f or utilities (for example, heat, electricity, water, phone)? 1 12/25/2024 Estimated Date of Delivery Comme nts Yes 07/26/2025 Based on last me nstrual period of 10/19/2024 (Exact Date) Sex and Gender Information Value Date Recorded Sex Assigned at Not on file Legal Sex Female 8:40 PM CARDIAC MONITOR Gender Identity Not on file Sexual Orientation Not on file Obstetrics History Para Term AB IAB SAB Ectopic Multiple Livin g Live Births 6 4 4 1 1 4 4 Date Outcome GA Total Labor Labor/2nd/3rd Weight Sex Type Anes PTL Kamryn A1 A5 Name Clin 014 Term M Vag Livin g Complications:None Delivery Location:[facility]) 016 Term M Vag Livin g Complications:None Delivery Location:[facility] ( [facility]) 022 SAB 8w0 d SPONTA NEOUS 023 Term Brendan grey Complications:Ruptured ovari an cyst Delivery Location:[facility]ospital ( [facility]) 025 Term Brendan grey Complications:Hemorrhage aft er delivery of fetus (HC) Comments:Baby aspirate d Current Summary Episode Dates Number of Fetuses Estimated Date of Delivery 12/25/2024 - Present (03/31/2025) 07/26/2025 (set by Najma Worrell, SHARI Student on 12/29/2024 based on Last Menstrual Period on 10/19/2024 (Exact Date)) Dating Summary Based On CHERIE GA Diff Last Menstrual Period on 10/19/2024 (Exact Date) 07/26/2025 Working Vitals Pregravid Weight Height TWG (As of 03/31/2025) Pregrav id BMI 1.555 m (5' 1.22) Date GA Fund Present FHR Mvmt BP Weight Edema Alb Glu Ket Dil/ Eff/Sta 5 19w2d Inpatient data not displayed here. See encounter summary. 5 21w4d Inpatient data not displayed here. See encounter summary. Notes Progress Notes - Hospital En counter - 03/19/2025 - GA:21w4d 03/19/2025 - 21w4d - Ara Padron, MS, [facility] / Clinic Note Genetic Counseling RE: Ishmael Feldman : 1990 MR: [id number] Partner name: Gelacio - not present Indication for Visit: discussion of testing for connective tissue disorders Family History: From previous genetic counseling note on 03/03/25: A three generation pedigree was obtained at today's appointment. Please see scans for details. 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 Ishmael's father has an aneurysm that is being monitored. Ishmael's paternal uncle recently unexpectedly due to an aortic dissection. Ishmael's paternal grandmother reportedly from an aneurysm in her 40s or 50s. Ishmael has eight siblings. Her youngest sister has a diagnosis of Down syndrome and was born with a heart defect. Partner history notable for: Gelacio is 44 and healthy. Gelacio has three children from previous relationships. Two of his sons have autism with varying degrees of involvement. 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 This was discussed in detail a Ishmael's last visit. Since the time of her evaluation, she has learned about family history including the sudden of her paternal uncle due to an aortic dissection. Her father is also has an aneurysm that is being monitored. She also learned that her paternal grandmother from an aneurysm. Given this history, it is reasonable to pursue testing for a larger group of connective tissue disorders including Marfan syndrome, classic and vascular forms of EDS, and Stickler syndrome. None of the affected individuals have had genetic testing. We discussed that testing of her father may be most informative as he has a known aneurysm, but she is uncertain when or if this could be performed. We will pursue testing via [facility]'s 92-gene connective tissue panel. We reviewed the following possible results: -Normal/negative: a DNA sequence or copy number variant is not identified. This does not rule out a genetic cause for the clinical concerns. -Positive/Pathogenic: a DNA sequence or copy number variant is identified and serves as an explanation of the clinical concerns. -Variant of uncertain clinical significance (VUS): a DNA sequence or copy number variant is identified but the laboratory has insufficient evidence to classify it as benign (normal) or pathogenic (disease-causing). A VUS does not confirm or rule out a diagnosis. Caution should be exercised in using a VUS result to inform medical management decisions. In the event of a VUS, testing of Ishmael's father would be valuable. Additionally, if at all possible for the family, I would encourage them pursue testing on post-mortem sample from Ishmael's uncle. Insurance coverage cannot be guaranteed for any of the screening or testing which was discussed. We reviewed that while insurance may notate a service is covered, or covered after a prior authorization is filed on the patient s behalf, this is not a guarantee of payment as covered services were typically subject to co-pays and deductibles. For example, if a high deductible plan, one could still get a bill for the procedure and/or testing near the full barnard of the test. Ishmael opted to proceed with testing today and verbalized understanding that coverage cannot be guaranteed. Per BI through [employer], the estimated out of pocket cost is $0. Plan: Ishmael elected to proceed with testing via [employer]'s Connective Tissue Disorders Panel after today s consult. She will be mailed a kit. Results are anticipated to be available in approximately 2-3 weeks. Once results are available, I will reach out to Ishmael to coordinate a follow-up visit. Thank you for allowing us to participate in your patient's care. Please do not hesitate to contact me with any additional questions or concerns. Sincerely, Ara Padron MS, [facility] Licensed, Certified Genetic Counselor Total time: 20 minutes Total [id number] time: 8 minutes; Total time preparing to see this patient and coordinating care time on the same calendar date: 12 minutes. Virtual Visit: As the provider for this virtual visit, I attest that I introduced myself to the patient, provided my credentials, disclosed my location, and determined that, based on a review of the patients chart and/or a discussion with members of the patient's treatment team, telemedicine via a real-time, two-way, interactive audio and video platform is an appropriate and effective means of providing this service. The patient and I mutually agree that this visit is appropriate for telemedicine as well. Patient location (originating site [facility] [place], [place] Provider location (distant site city/state): [place], [place] Video start time (include am/pm designation): 11:48 AM Video end time (include am/pm designation): 12:00 PM [facility] [address], [address] [place] [address] Progress Notes - OB Encounte r - 03/19/2025 - GA:21w4d 03/19/2025 - w4d - Rose Mims MD S: Level 2 US showed mild pyelectasis bilaterally. She has follow-up US scheduled. She is meeting with a genetic counselor later today. It was recommend that have an updated ECHO d/t history of EDS and multiple family members with aortic aneurysm. Notes that her paternal uncle recently from aortic dissection. Continues to have some back and hip pain, working with physical therapy. Notes that she has felt unwell in the past after taking the glucose drink for diabetes screening. With her last , she checked her blood sugars at home for 2 weeks as an alternative. O: BP 91/61 (Cuff Site: Left Arm, Position: Sitting, Cuff Size: Adult Regular) Pulse 82 Wt 66 kg (145 lb 6.4 oz) LMP 10/19/2024 (Exact Date) SpO2 100% BMI 27.28 kg/m See OB flowsheet A/P: 1. Encounter for supervision of high risk multigravida of advanced maternal age, antepartum (HC) (Primary) - Low risk NIPT. Boy! - Level 2 US with MPP with EFW 61%, mild bilateral renal pyelectasis - Plan alternative screening for gestational diabetes given intolerance of GCT in the past. Patient has a glucometer at home from prior (when she did similar alternative screening). She will record QID blood sugars x 2 weeks starting at 24 weeks and bring the record for review - Desires waterbirth 2. hydronephrosis during , antepartum, single or unspecified fetus (HC) - Mild, bilateral on level 2 US - Scheduled to recheck with MPP at 32 weeks 3. Jesse-Danlos syndrome (HC) - Genetic counselor appt later today - Maternal ECHO scheduled per [facility] recommendation. Last 01/26/2023 was normal 4. Short interval between pregnancies affecting , antepartum (HC) - Last delivery 07/31/2024 Rose Mims MD .................... 03/19/2025 8:06 AM Progress Notes - Hospital En counter - 03/03/2025 - GA:19w2d 03/03/2025 - w2d - Ara Padron, MS, [facility] / Clinic Note Genetic Counseling RE: Ishmael Feldman : 1990 MR: [id number] Partner name: Gelacio - not present Referred By: Rose Mims MD Indication for Visit: MAUDE CARDOZA History: Estimated Date of Delivery: 07/26/25 by LMP GAA: 19w2d Complete genetic screening/testing: Low Risk cfDNA screening for aneuploidy ([facility] - [facility]) - Fraction: 17.2% Predicted Sex: male Medications: None noted currently, hydrocodone at ~8w for severe back pain Exposures/infections: none Family History: A three generation pedigree was obtained at today's appointment. Please see scans for details. 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 Ishmael's father has an aneurysm that is being monitored. Ishmael's paternal uncle recently unexpectedly due to an aortic dissection. Ishmael's paternal grandmother reportedly from an aneurysm in her 40s or 50s. Ishmael has eight siblings. Her youngest sister has a diagnosis of Down syndrome and was born with a heart defect. Partner history notable for: Gelacio is 44 and healthy. Gelacio has three children from previous relationships. Two of his sons have autism with varying degrees of involvement. Patient ethnicity: (White) Partner ethnicity: (White) Consanguinity: none noted Risk Assessment: There is a 3-5% background risk for defects and a 1-2% background risk for intellectual disability and/or developmental delay for any given . Discussed thepersonal history of hypermobile EDSalong with possible underlying causes. Ishmael has a clinical diagnosis of hEDS. She understands that genetic testing for this condition is not currently available. EDS is a group of connective tissue disorders that affect the skin, bones, and blood vessels of many organs and tissues. There are 13 different types of EDS with six of the types being more common and the remaining increasingly rare. A few symptoms are common among most types of EDS including hypermobility and elastic and fragile skin. HEDS is the most common type of EDS, impacting ~1 in 5000 people. We discussed that although there is no specific gene known to cause hEDS, it is thought to be inherited in an autosomal dominant manner. This means that Ishmael's children would have up to a 50% chance to inherit the condition. Ishmael's family history is perhaps more concerning for either the vascular or classic forms of EDS or another connective tissue disorder such as Marfan syndrome, especially with the history of aneurysm and aortic dissection. There is genetic testing for these conditions. Ishmael had an echocardiogram in 2022, which was normal. Discussed Ishmael's family history of Down syndrome. Over 95% of cases of Down syndrome result from trisomy 21 caused by nondisjunction. Rarely, Down syndrome occurs due to a translocation involving chromosome 21, which, if carried by other family members, puts them at increased chance to have a baby with Down syndrome. This is likely a sporadic case in Ortega's sister, given the family history that is negative for multiple losses/infertility/other chromosome conditions and the age at delivery of this individual's mother, however a familial translocation cannot be entirely excluded. Discussed Ishmael's low risk cfDNA screening result. The low risk cell-free DNA screening test ([facility]) decreases the risk for this to be affected by one of the common chromosomal conditions to less than 1/10,000. This significantly reduces, but does not eliminate, the possibility for a chromosomal difference in this . Please see scans for report. The following genetic screening and testing options were discussed: amniocentesis Discussion: Ishmael presented today for genetic counseling regarding advanced maternal age and a diagnosis of hypermobile EDS. We discussed Ishmael's personal and family history in detail. I am concerned that Ishmael may have another form of EDS given the family history. She was tearful during our discussion as her uncle only recently passed from his unexpected aortic dissection. She has had a normal echocardiogram, which is reassuring. However, it is reasonable to pursue another echocardiogram during the as aortic root dilation can occur quickly; this was ordered today. I would also recommend that Ishmael reconnect with the Genetics team at [place]. It is reasonable to consider an updated evaluation and potential genetic testing via a connective tissue panel. If Genetics cannot see her in the near future, I asked Ishmael to reach out to me as some of my colleagues may be willing to order testing for her. We did not review Ishmael's possible parvovirus exposure in detail. Since she is IgG positive and IgM negative, a primary infection in (at the time of exposure) is not likely. Ishmael also saw Dr. Armendariz today; please see their notes for further details regarding today's appointment. The patient verbalized her understanding of our consult today and has no further questions at this time. Plan: 1) Ishmael elected to proceed with her other appointments after today s consult. 2) Ishmael will be scheduled for an echocardiogram for herself during . 3) Ishmael will reach out to the [facility] team to see if they can re- evaluate her in light of the new family history information. If they cannot see her, she will contact me to determine an alternative plan. Thank you for allowing us to participate in your patient's care. Please do not hesitate to contact me with any additional questions or concerns. Sincerely, Ara Padron MS, [facility] Licensed, Certified Genetic Counselor Total time: 55 minutes Total erzo-ya-mrcz time: 30 minutes; Total time preparing to see this patient and coordinating care time on the same calendar date: 25 minutes. [facility] - [address] , [address] [place] [address] Progress Notes - OB Encounte r - 02/18/2025 - GA:17w3d 02/18/2025 - 17w3d - Rose Mims MD Pain in the left SI joint. Endorses popping in that area sometimes when she walks. Mild pain. No pain radiating down the leg or numbness, tingling, weakness. She has a physical therapy appointment at [facility] after this. Level 2 US scheduled for 03/03/25. Low risk NIPT, boy! No longer . Abdominal cramping/pain: - Vaginal bleeding: - movement: flutters Vaginal discharge: - - RTC in 4 weeks Rose Mims MD Progress Notes - OB Encounte r - 01/21/2025 - GA:13w3d 01/21/2025 - w3d - Rose Mims MD Around 8 weeks she was at an event with a family whose children had parvovirus. The mother informed her the next day that her children had developed karri cheeks; she brought them to the doctor, and was told they had parvovirus. Patient did not develop illness, and her children were not ill. She is unsure if she has ever been tested for parvovirus antibodies previously She is feeling tired. Continues to pump a little in the morning. Not getting very much milk. Wants to continue breast-feeding as long as possible, as her son is only 6 months old. She was not happy with her last experience. She had a water at [facility]. Reports that she felt the nurses were not very respectful of her wishes regarding her plan. Tells me her son was delivering in the amniotic sac, and the ferryboat ticket taker ruptured the membranes without her consent. Her son then aspirated some water from the tub, and had to be from her for resuscitation. She felt like the ferryboat ticket taker was too aggressive about getting her placenta to deliver and had her leave the tub to manage this. States that an MANAGER FILE did come in to assist, but that her placenta delivered spontaneously shortly thereafter. She had a hemorrhage, but states that she did not need a blood transfusion. Abdominal cramping/pain: - Vaginal bleeding: - movement: - Vaginal discharge: - Other concerns/questions: - 1. Encounter for supervision of high risk multigravida of advanced maternal age, antepartum (HC) (Primary) Discussed level 2 ultrasound for AMA and NIPT. Patient is agreeable to both. She wishes to know sex, but would like to receive this in an envelope rather than through [employer] message or phone call. - DNA SCREEN SEND OUT; Future - AMB CONSULT TO MATERNAL- MEDICINE; Future 2. Short interval between pregnancies affecting , antepartum (HC) Fourth child was born 07/31/2024. 3. Jesse-Danlos syndrome (HC) - AMB CONSULT TO MATERNAL- MEDICINE; Future 4. Parvovirus exposure Recommend blood testing for IgG and IgM antibodies. Patient is agreeable. - PARVOVIRUS B19 HUMAN IGG/IGM; Future - AMB CONSULT TO MATERNAL- MEDICINE; Future - PARVOVIRUS B19 HUMAN IGG/IGM RTC in 4 weeks Rose Mims MD Progress Notes - OB Encounte r - 12/29/2024 - GA:10w1d 12/29/2024 - 10w1d - Najma Jackson RN SUBJECTIVE: Ishmael Feldman is a 34 y.o. female, , who presents for confirmation and ob education. Patient presents to the clinic alone. Patient declined lab tests for Anti HIV 1/2, Varicella-Zoster V AB IGG, Anti HCV, HBSAG (HBS), Rubella immune status, GC Chlamydia and Treponema pallidum. Patient stated she has had these tests in the past with previous pregnancies with no issue. Patient was advised of risks of not testing. Patient verbalized understanding. Patient is experiencing mild anxiety and depression symptoms at this time. Patient has seen a counselor in the past that she will reach out to if she feels like her symptoms get worse or aren't manageable. Patient stated they are manageable at this time. Patient has never taken medication for her symptoms in the past. Patient reports more stress recently due to her mother and brother having their own health problems. Had positive test at home. This was Planned, Desired. Patient was not on contraception. Date Reliability: definite CHERIE based on LMP: Estimated Date of Delivery: 07/26/25 Current symptoms include: Nausea:Yes - mild Vomiting:Yes - 3 times Breast tenderness:Yes - mild Vaginal bleeding:No-but has noticed light pink on toilet tissue after wiping 3 times today. 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 MENSTRUAL HISTORY: Patient's last menstrual period was 10/19/2024 (exact date).: Cycle Regularity: regular, every 21 days since having baby born in 2022 Past Medical History: . Date Asthma (HC) 2017 Exercise induced Depression 2016 History of intrauterine in previous 01/2022 Miscarriage at 8 weeks No Significant Past Medical History Urinary tract infection 2021 Had UTI's during and after this Varicella 1995 OB History Para Term AB Living 6 4 4 1 4 SAB IAB Ectopic Multiple Live Births 1 4 # Outcome Date GA Lbr Perico/2nd Weight Sex Type Anes PTL Lv 6 Current 5 Term 07/31/24 M Waterbirth KAMRYN Comments: Baby aspirated Complications: Hemorrhage after delivery of fetus (HC) 4 Term 03/18/23 M Waterbirth KAMRYN Complications: Ruptured ovarian cyst 3 SAB 01/27/22 8w0d SPONTANEOUS 2 Term 12/06/15 M Vag KAMRYN 1 Term 04/20/14 M Vag KAMRYN 12/29/2024 9:00 AM PHQ Depression Screening Date of PHQ exam (doc flow) 12/29/2024 1. Lack of interest/pleasure 1 - Several days 2. Feeling down/depressed 1 - Several days PHQ-2 TOTAL SCORE 2 3. Trouble sleeping 1 - Several days 4. Decreased energy 1 - Several days 5. Appetite change 0 - Not at all 6. Feelings of failure 1 - Several days 7. Trouble concentrating 0 - Not at all 8. Activity level 0 - Not at all 9. Hurting yourself 0 - Not at all PHQ-9 TOTAL SCORE 5 PHQ-9 Severity Level mild Functional Impairment somewhat difficult 12/29/2024 9:00 AM GALE-7 ANXIETY SCREENING GALE date (doc flow) 12/29/2024 Nervous, anxious 1 Cannot stop worrying 0 Worry about different things 1 Cannot relax 1 Feeling restless 0 Easily annoyed/irritated 1 Afraid of awful event 1 Score 5 Severity mild anxiety 5P'S SUBSTANCE ABUSE SCREEN FOR ALCOHOL, DRUGS AND TOBACCO: Did any of your parents have a problem with using alcohol or drugs? Yes- baby's mother's father is a recovering alcoholic. Do any of your friends (peers) have problems with drug or alcohol use? No Does your partner have a problem with drug or alcohol use? No Before you knew you were , how often did you drink beer, wine, wine coolers or liquor or use any kind of drug? Sometimes In the past month, how often did you drink beer, wine, wine coolers or liquor or use any kind of drug? Not at all How much did you smoke, vape or use tobacco or nicotine in any form before you knew you were ? Don't Smoke, Vape or use Tobacco Genetic Screening Genetic Screening/Teratology Counseling- Includes patient, baby's father, or anyone in either family with: Patient's age 35 years or older as of estimated date of delivery: Yes Thalassemia (Slovak, Sinhala, Mediterranean, or background): MCV less than 80: No Neural tube defect (Meningomyelocele, Spina bifida, or Anencephaly): No Congenital heart defect: Yes (Comment: 2 holes in heart-repaired, leaking heart valve as an adult) Down syndrome: Yes Abdiel-Sachs (Ashkenazi Adventist, Cajun, Irish Drasco): No Vianey disease (Ashkenazi Adventist): No Familial dysautonomia (Ashkenazi Adventist): No Sickle cell disease or trait (): No Hemophilia or other blood disorders: No Muscular dystrophy: No Cystic fibrosis: No Shayne's chorea: No Intellectual disability and/or autism: (Comment: Baby's father has a son that has autism) Other inherited genetic or chromosomal disorder: No Maternal metabolic disorder (eg. Type 1 diabetes, PKU): No Patient or baby's father had child with defects not listed above: No Recurrent loss, or a stillbirth: No Medications (including supplements, vitamins, herbs, or OTC drugs)/illicit/recreational drugs/alcohol since last menstrual period: Yes If yes, agent(s) and strength/dosage: vitamin, Oxycodone (used for 3 days for back pain 2 weeks ago) CURRENT MEDICATIONS: Current Outpatient Medications Medication Sig PNV no.95/ferrous fum/folic ac ( ORAL) Take by mouth. No current facility-administered medications for this visit. Medications have been reviewed by me and are current to the best of my knowledge and ability. ALLERGIES: Sulfa (sulfonamide antibiotics) OBJECTIVE: LMP 10/19/2024 (Exact Date) Yes Comment: Pumping and bottle feeding No results found for: PREGURINE ASSESSMENT/PLAN: ICD-10-CM 1. No Significant Past Medical History EDUCATION/PATIENT INSTRUCTIONS - Advised patient to start/continue vitamin. - Discussed risk of using alcohol, tobacco, other drugs in . - Discussed healthy lifestyle in . - Provided copy of [facility] book and book inserts, discussed qsoy-ulb-jymbamr medications, and follow up. - Encouraged patient to call clinic at [phone] with any vaginal bleeding, fluid leaking from vagina, severe abdominal pain, nausea with severe vomiting, fever higher than 100.4F, painful urination, headache not relieved by Tylenol, or other concerns - labs completed with today's visit. - Patient informed to schedule 1st trimester dating ultrasound between 7-10 weeks. - Initial OB appointment with FP/OB scheduled. COVID-19 vaccine discussion to be completed at this visit. Future Appointments Date Time Provider Department Center 01/21/2025 7:30 AM [facility] Najma Worrell RN................... 12/29/2024 10:03 AM Progress Notes - Office Visi t - 12/25/2024 - GA:9w4d 12/25/2024 - 9w4d - Rose Mims MD SUBJECTIVE: Ishmael Feldman is a 34 y.o. female who presents to discuss ER Follow up (12/13/24 Lower back pain more on left side pain now 6/10/Pain at its worse 10/10, No injury ) . History of Present Illness The patient is a 34-year-old female who presents for a follow-up visit after an ER visit. She was seen at the [facility] ER on 12/13/2024 for severe low back pain. She was concerned that this may be a ruptured ovarian cyst as she had experienced this once in the past. Of note, she is currently , G5, P4, approximately 9 weeks along. In the ER, she had a pelvic ultrasound that showed a viable intrauterine with an estimated gestational age of 8 weeks 2 days as well as a left ovarian cyst measuring 4 x 3.5 x 2.3 cm. Interval follow-up with MANAGER FILE was recommended. She was treated with Tylenol and oxycodone. On the day of her ED visit, she experienced a gradual escalation of back pain throughout the day, which eventually became so severe that it impeded her mobility, necessitating assistance from her for basic movements such as getting in and out of bed. The pain was reminiscent of a previous episode during her in 2021, which was initially attributed to a urinary tract infection but later diagnosed as a ruptured cyst. She suspects a similar cause for her current pain, although the ER staff suggested a muscular origin due to her history of Jesse-Danlos syndrome. She was prescribed oxycodone for a few days, which provided some relief. The pain, described as sharp and excruciating, is localized in the lower back, predominantly on the left side, and does not radiate to the buttocks or legs. She rates the pain as a 6 on a scale of 10. She has a history of back issues but reports that this pain is more intense than previous episodes. She has been receiving physical therapy for her last three pregnancies for symptoms of Jesse-Danlos. She is currently with her fifth child, with the first day of her last menstrual period recorded as 10/19/2024. She has expressed interest in water births and is considering alternative care options for her delivery. She is currently and reports a decrease in milk supply. GYNECOLOGICAL HISTORY: - Last Menstrual Period: 10/19/2024 ROS Review of Systems is included in the HPI. There are no active problems to display for this patient. No current outpatient medications on file. No current facility-administered medications for this visit. Medications have been reviewed by me and are current to the best of my knowledge and ability. OBJECTIVE: BP 101/68 (Cuff Site: Right Arm, Position: Sitting, Cuff Size: Adult Regular) Pulse 80 Wt 62.1 kg (137 lb) SpO2 98% No BMI 25.37 kg/m PHYSICAL EXAM General: Well-appearing adult female. Alert, oriented and appropriate. No acute distress. HEENT: Mucous membranes moist. Cardiovascular: Appears well-perfused. Pulmonary: Breathing comfortably on room air. Skin: No rashes appreciated over exposed skin. Neuro: Grossly normal, no focal deficits. BSUS shows viable fetus with cardiac activity and movement. ASSESSMENT AND PLAN: Assessment & Plan 1. Low back pain. - Symptoms have shown improvement, which is a positive sign. - No definitive evidence suggests the ovarian cyst is the source of discomfort. - Absence of red flags such as severe pain radiating down the leg, changes in bladder or bowel function, inability to walk due to pain, or significant leg weakness is reassuring. - Discussed that for most individuals with musculoskeletal back issues, a recovery period of 4 to 6 weeks is typically required before returning to normal activities. - Advised to continue with supportive care measures including heat application, ice packs, stretching exercises, and physical therapy. A repeat ultrasound will be scheduled to monitor the status of the cyst, typically 4 weeks from the last one. If her condition deteriorates, characterized by severe pain or vaginal bleeding, an earlier ultrasound will be necessary. 2. . - Currently , approximately 9 weeks along based on the first day of her last menstrual period being 10/19/2024. - An ultrasound in the ER showed a viable intrauterine with an estimated gestational age of 8 weeks 2 days. The baby's heartbeat was observed during today's visit. - Advised to schedule an intake appointment with one of the nurses, who will gather all her basic and obstetric history, followed by a new OB visit with me. Quiñones was seen today for er follow up. Diagnoses and all orders for this visit: Follow-up exam Acute midline low back pain without sciatica Left ovarian cyst - US PELVIS COMPLETE TA AND TV; Future 9 weeks gestation of (HC) Rose Mims MD .................... 12/25/2024 3:49 PM Last Filed Vital Signs Vital Sign Reading Time Taken Comments Blood Pressure 91/61 03/19/2025 7:35 AM CDT Pulse 82 03/19/2025 7:35 AM CDT Temperature - - Respiratory Rate - - Oxygen Saturation 100% 03/19/2025 7:35 AM CDT Inhaled Oxygen Concentration - - Weight 66 kg (145 lb 6.4 oz) 03/19/2025 7:35 AM CDT Height 155.5 cm (5' 1.22) 12/29/2024 10:32 AM C DT Body Mass Index 27.28 12/29/2024 10:32 AM CDT Plan of Treatment Upcoming Encounters Date Type Department Care Team (Late st Contact Info) Description 04/06/2025 11:00 AM CDT Ancillary Procedure [facility] [address] [place] [phone] 04/17/2025 7:00 AM CDT [facility] [address] [place] [address] Rose Mims MD [address] [facility] [address] 06/02/2025 7:30 AM CARDIAC MONITOR Appointment [facility] [address] [place] [id number] Health Maintenance Due Date Last Done Comments HIV for age 15-65 2004 Hepatitis C screening for age 18-79 10/21/2007 Hepatitis B series for 19+ (1 of 3 - 19+ 3-dose series) 2008 Tetanus booster 02/18/2024 02/17/2014 COVID-19 vaccine series ( - season) 2024 Influenza Vaccine (#1) 2025 8, 06/08/2015, 08/28/2014 RSV vaccine for adults or (1 - Risk 1-dose series) 05/31/2025 Pap test for age 21-65 10/15/2025 1, 10/15/2020, 09/20/2017, Additional history exists BMI (ht and wt on same day) for age 18+ 12/29/2025 12/29/2024 Depression screening for age 12+ 12/29/2025 12/29/2024 Pneumococcal series for age 6-49 Aged Out No longer eligible based on patient's age to complete this topic Procedures Procedure Name Priority Date/Time Associated Diagnosis Comments US OB DETAIL ANATOMY SINGLE Routine 03/03/2025 9:47 AM CDT High risk , antepartum (HC) PARVOVIRUS B19 HUMAN IGG/IGM Routine 01/21/2025 8:34 AM CDT Parvovirus exposure DNA SCREEN SEND OUT Routine 01/21/2025 12:00 AM CDT Encounter for supervision of high risk multigravida of advanced maternal age, antepartum (HC) US OB 1ST TRI SINGLE TA Routine 01/02/2025 3:44 PM CDT Encounter for supervision of other normal in first trimester (HC) CBC W PLT NO DIFF Routine 12/29/2024 10: 54 AM CDT Encounter for supervision of other normal in first trimester (HC) TYPE & SCREEN Routine 12/29/2024 10:53 AM CDT Encounter for supervision of other normal in first trimester (HC) URINE CULTURE Routine 12/29/2024 10:53 AM CDT Encounter for supervision of other normal in first trimester (HC) SENIOR SPEECH PATHOLOGIST THIN PREP PAP SCREEN IMAGED Routine 10/15/2020 8:30 AM CDT from Last 3 Months or Most Recently Relevant to Health Maintenance Results * US OB DETAIL ANATOMY SINGLE (03/03/2025 9:47 AM CDT) Anatomical Region Laterality Modality , 2or 3 TRIMESTER Ultrasound 03/03/2025 8:55 AM CDT Narrative 03/03/2025 12:09 PM CDT Referred By: ROSE MIMS INDICATION: Indications Code 19 weeks gestation of Z3A.19 Jesse-Danlos syndrome Advanced maternal age, multigravida [address] Short interval Parvovirus exposure, IGG labs WNL Low Risk NIPT IMPRESSION: Intrauterine at 19w 2d. presentation is Breech. EFW 303 grams, percentile: 61. Appropriate growth No major structural anomalies identified. One minor marker of aneuploidy identified: Mild bilateral renal pyelectasis. Deepest Vertical Pocket of amniotic fluid: 5.54 cm. Placental location: Posterior. Placental edge dist from research program internship os=7.79cm The transabdominal cervical length is 3.4 cm. MCA PSV 1.06 MoM, no evidence of anemia. RECOMMENDATIONS: -Return to primary provider for continued care. -A repeat ultrasound evaluation with [facility] at 32 weeks is suggested because the risk of renal system pathology is determined based on dilation at 32 weeks. -The patient was directed to schedule with [facility] at the director of front office on the way out, or to call [facility] within 2 business days to schedule follow up. -If the pyelectasis has resolved at 32 weeks, no further intervention should be necessary. -If the findings at the 32 week ultrasound suggest that a Pediatric Urology consultation is warranted, we will make recommendations for followup. -Recommend maternal echocardiogram due to history of EDS with recent family history of aortic problems. CONSULT: Counseling included the following: Mild renal pyelectasis defined as renal pelvic dilation without calyceal dilation can be seen in 4-5% of normal fetuses in the second trimester. Most fetuses with mild renal pyelectasis are euploidic, that said, the finding has been (controversially) associated with trisomy 21. In meta-analyses, the risk is increased about 1.5 times. Mild renal pyelectasis is more likely to be associated with aneuploidy in a high risk population such as advanced maternal age or when other markers are also identified. It not confer a significant increase in risk when a low risk NIPS is present. Minimal pyelectasis (4-7mm) is most often publications sales representative of normal anatomy; 80% of fetuses with this finding in the second trimester show resolution by the third (32 weeks'). It is more common in males. True pathology may indicate ureteropelvic junction obstruction, a duplex collecting system, a bladder outlet obstruction, or ureterovesicle obstruction. About 3% of the fetuses who do not show resolution at 32 weeks will need intervention. Of the fetuses with moderate pyelectasis (7-10mm), 50% completely resolve by the time the baby is born or within the first 2 weeks after . Low risk NIPS in this . Parvovirus exposure in early . Serologies reviewed and suggest prior immunity. It has been grater than 12 weeks since exposure and MCA Doppler was normal today. No further surveillance recommended. History of EDS hypermobile subtype. Previous evaluation at [place]. Recently family members have had aortic issues (dissection in her uncle, dilation in her father). Last echo in 2022 was normal. Recommend maternal echo in to evaluate aorta based on recent family history. This will be coordinated by [facility]. Government regulations related to the Century Cures act require that this note be released to the patient immediately, sometimes before the referring provider has been contacted. A portion of the information was presented verbally to the patient. The remainder is submitted as background for the referring provider, to be discussed as needed. Medical Decision Making: Moderate Level 58508 Moderate number/complexity of problems including an undiagnosed new problem with uncertain prognosis Moderate amount and/or complexity of Data reviewed and analyzed including review of prior ultrasound, ordering another ultrasound, and review of prior external notes, etc. Moderate risk of morbidity or mortality related to underlying conditions Services Provided: Procedures Code DETAIL ANATOMY 05677.0 MID CEREBRAL ARTERY DOPPLER 37109.0 Procedure Note Sukhdeep Armendariz, DO - 03/03/2025 Referred By: ROSE MIMS INDICATION: IndicationsCode 19 weeks gestation of [id number] Jesse-Danlos syndrome Advanced maternal age, [id number] Short interval Parvovirus exposure, IGG labs WNL Low Risk NIPT IMPRESSION: Intrauterine at 19w 2d. presentation is Breech. EFW 303 grams, percentile: 61. Appropriate growth No major structural anomalies identified. One minor marker of aneuploidy identified: Mild bilateral renalpyelectasis. Deepest Vertical Pocket of amniotic fluid: 5.54 cm. Placental location: Posterior. Placental edge dist from research program internship os=7.79cm The transabdominal cervical length is 3.4 cm. MCA PSV 1.06 MoM, no evidence of anemia. RECOMMENDATIONS: -Return to primary provider for continued care. -A repeat ultrasound evaluation with [facility] at 32 weeks is suggested becausethe risk of renal system pathology is determined based on dilation at 32 weeks. -The patient was directed to schedule with [facility] at the director of front office on theway out, or to call [facility] within 2 business days to schedule follow up. -If the pyelectasis has resolved at 32 weeks, no further interventionshould be necessary. -If the findings at the 32 week ultrasound suggest that a PediatricUrology consultation is warranted, we will make recommendations for followup. -Recommend maternal echocardiogram due to history of EDS with recentfamily history of aortic problems. CONSULT: Counseling included the following: Mild renal pyelectasis defined as renalpelvic dilation without calyceal dilation can be seen in 4-5% of normal fetuses in thesecond trimester. Most fetuses with mild renal pyelectasis are euploidic, that said, the findinghas been (controversially) associated with trisomy 21. In meta-analyses, the riskis increased about 1.5 times. Mild renal pyelectasis is more likely to be associated withaneuploidy in a high risk population such as advanced maternal age or when other markers are alsoidentified. It not confer a significant increase in risk when a low risk NIPS is present. Minimal pyelectasis (4-7mm) is most often publications sales representative of normalanatomy; 80% of fetuses with this finding in the second trimester show resolution by the third (32weeks'). It is more common in males. True pathology may indicate ureteropelvic junctionobstruction, a duplex collecting system, a bladder outlet obstruction, or ureterovesicleobstruction. About 3% of the fetuses who do not show resolution at 32 weeks will need postnatalintervention. Of the fetuses with moderate pyelectasis (7-10mm), 50% completely resolve by thetime the baby is born or within the first 2 weeks after . Low risk NIPS in this . Parvovirus exposure in early . Serologies reviewed and suggestprior immunity. It has been grater than 12 weeks since exposure and MCA Doppler was normaltoday. No further surveillance recommended. History of EDS hypermobile subtype. Previous evaluation at [place].Recently family members have had aortic issues (dissection in her uncle, dilation in her father).Last echo in 2022 was normal. Recommend maternal echo in to evaluate aorta based onrecent family history. This will be coordinated by [facility]. Government regulations related to the Century Cures act require thatthis note be released to the patient immediately, sometimes before the referring provider hasbeen contacted. A portion of the information was presented verbally to the patient. Theremainder is submitted as background for the referring provider, to be discussed as needed. Medical Decision Making: Moderate Level 98660 Moderate number/complexity of problems including an undiagnosed newproblem with uncertain prognosis Moderate amount and/or complexity of Data reviewed and analyzedincluding review of prior ultrasound, ordering another ultrasound, and review of prior externalnotes, etc. Moderate risk of morbidity or mortality related to underlyingconditions Services Provided: ProceduresCode DETAIL [id number] MID CEREBRAL ARTERY DOPPLER 01293.0 Rose Mims MD US Final Resul t * (ABNORMAL) PARVOVIRUS B19 HUMAN IGG/IGM (01/21/2025 8:34 AM CDT) PARVOVIRUS B19 ANTIBODY (IGG) 4.27(H) [facility] Comment: Reference Range <0.9 Negative 0.9-1.1 Equivocal >1.1 Positive IgG persists for years and provides life-long immunity. To diagnose current infection, consider Parvovirus B19 DNA, PCR. PARVOVIRUS B19 ANTIBODY (IGM) <0.9 [facility] Comment: Reference Range <0.9 Negative 0.9-1.1 Equivocal >1.1 Positive Results from any one IgM assay should not be used as a sole determinant of a current or recent infection. Because IgM tests can yield false positive results and low levels of IgM antibody may persist for months post infection, reliance on a single test result could be misleading. If an acute infection is suspected, consider obtaining a new specimen and submit for both IgG and IgM testing in two or more weeks. To diagnose current infection, consider parvovirus B19 DNA,PCR. Blood BLOOD SPECIMEN / Unknown 01/21/2025 8:34 AM CDT 01/21/2025 8:34 AM CDT Rose Mims MD SEND OUTS Final Resul t [employer] [facility] [address] [place] [address], [facility] [address] [place] [address] * DNA SCREEN SEND OUT (01/21/2025 12:00 AM CDT) Other (Other) Rose Mims MD SEND OUTS Final Resul t * US 1ST TRIMESTER (< 14 weeks) [54549.0] (01/02/2025 3:44 PM CDT) Anatomical Region Laterality Modality , 1ST TRIMESTER Ultrasound 01/05/2025 4:14 PM CDT Impressions 01/05/2025 4:14 PM CDT Single living intrauterine with sonographic gestational age 11 weeks 3 days and a sonographic due date 07/21/2025. Dictated by Arnulfo Dominguez MD @ 01/05/2025 4:14:35 PM (Electronically Signed) Narrative 01/05/2025 4:14 PM CDT For Patients: As a result of the Cures Act, medical imaging exams and procedure reports are released immediately into your electronic medical record. You may view this report before your referring provider. If you have questions, please contact your health care provider. INDICATION: First trimester scan, establish dates. COMPARISON: None. TECHNIQUE: Real-time groves-scale imaging of the pelvis was performed transabdominal. FINDINGS: Sonographic imaging demonstrates a single living intrauterine gestation. The embryo demonstrates a regular cardiac rate measuring 172 beats per minute. The embryo`s crown-rump length measurement of 4.5 cm corresponds to a gestational age of 11 weeks 3 days with a sonographic due date of 07/21/2025. There is a normal-appearing yolk sac. There are no gross abnormalities noted within the embryo at this early state of development. The gestational sac has a normal appearance. There is no evidence of a perigestational hemorrhage. The amount of fluid within the sac appears appropriate for gestational age. The cervix is closed. The myometrium appears normal. Simple left ovarian cyst is present which measures 4.0 x 2.6 x 2.4 cm. Corpus luteal cyst right ovary measures 2.4 x 2.4 x 1.8 cm. There are no suspicious fluid collections noted in the cul-de-sac. Procedure Note Arnulfo Dominguez MD - 01/05/2025 For Patients: As a result of the Cures Act, medical imagingexams and procedure reports are released immediately into your electronicmedical record. You may view this report before your referring provider.If you have questions, please contact your health care provider. INDICATION: First trimester scan, establish dates. COMPARISON: None. TECHNIQUE: Real-time groves-scale imaging of the pelvis was performed transabdominal. FINDINGS: Sonographic imaging demonstrates a single living intrauterine gestation.The embryo demonstrates a regular cardiac rate measuring 172 beats perminute. The embryo`s crown-rump length measurement of 4.5 cm correspondsto a gestational age of 11 weeks 3 days with a sonographic due date of07/21/2025. There is a normal-appearing yolk sac. There are no grossabnormalities noted within the embryo at this early state of development.The gestational sac has a normal appearance. There is no evidence of aperigestational hemorrhage. The amount of fluid within the sac appearsappropriate for gestational age. The cervix is closed. The myometrium appears normal. Simple left ovariancyst is present which measures 4.0 x 2.6 x 2.4 cm. Corpus luteal cystright ovary measures 2.4 x 2.4 x 1.8 cm. There are no suspicious fluidcollections noted in the cul-de-sac. IMPRESSION: Single living intrauterine with sonographic gestational age 11weeks 3 days and a sonographic due date 07/21/2025. Dictated by Arnulfo Dominguez MD @ 01/05/2025 4:14:35 PM (Electronically Signed) us Rose Mims MD Final Resul t * CBC W PLT NO DIFF (12/29/2024 10:54 AM CDT) WHITE BLOOD CELL COUNT 7.2 3.8 - 10.8 Thousand/u L [facility] RED BLOOD CELL COUNT 4.04 3.80 - 5.10 Million/uL [facility] HEMOGLOBIN 11.9 11.7 - 15.5 g/dL [facility] HEMATOCRIT 36.9 35.0 - 45.0 % [facility] MCV 91.3 80.0 - 100.0 fL [facility] MCH 29.5 27.0 - 33.0 pg [facility] MCHC 32.2 32.0 - 36.0 g/dL [facility] Comment: For adults, a slight decrease in the calculated MCHC value (in the range of 30 to 32 g/dL) is most likely not clinically significant; however, it should be interpreted with caution in correlation with other red cell parameters and the patient's clinical condition. RDW 13.0 11.0 - 15.0 % [facility] PLATELET COUNT 215 140 - 400 Thousand/u L [facility] MPV 10.3 7.5 - 12.5 fL [facility] Blood BLOOD SPECIMEN / Unknown 12/29/2024 10:54 AM CDT 12/29/2024 10:55 AM CDT Rose Mims MD HEMATOLOGY Final Resul t [facility] [address] [place] [address], [place] [phone] [facility] [address] [place] [address] * TYPE AND SCREEN (12/29/2024 10:53 AM CDT) ABORH A Rh Positive 12/29/2024 4:27 PM CDT [facility] ANTIBODY SCREEN Negative Negative 12/29/2024 4:27 PM CDT [facility]-CENTRAL LAB BLOOD BANK SPECIMEN EXPIRATION DATE/TIME 01/01/25 23:59 12/29/2024 4:27 PM CDT [facility] Blood BLOOD SPECIMEN / Unknown [facility] / Unknown 12/29/2024 10:53 AM CDT 12/29/2024 10:53 AM CDT Rose Mims MD BLOOD BANK Final Resul t [facility]-CENTRAL LAB BLOOD BANK [address] [place] [address], [place] [phone] * URINE CULTURE (12/29/2024 10:53 AM CDT) CULTURE <10,000 CFU/mL multiple organisms 12/30/2024 2:04 PM CDT [facility] Urine URINE SPECIMEN / Unknown Non-Blood / Unknown 12/29/2024 10:53 AM CDT 12/29/2024 10:53 AM CDT us Rose Mims MD MICROBIOLOGY Final Resul t [facility] [address] [place] [address], [place] * SENIOR SPEECH PATHOLOGIST THIN PREP PAP SCREEN IMAGED (10/15/2020 8:30 AM CDT) Case Report Gynecologic Cytology Report Case: [id number] Authorizing Provider: Unknown, Doctor Collected: 10/15/2020 0830 Ordering Location: [facility] Received: 10/18/2020 0958 First Screen: Albina Oleary Specimen: SENIOR SPEECH PATHOLOGIST ThinPrep Vial Screening, Cervical/Vaginal 10/22/2020 4:04 PM CDT [facility] ENTRAL [facility] INTERPRETATION/ RESULT NEGATIVE FOR INTRAEPITHELIAL LESION OR MALIGNANCY (NIL) (none) 10/22/2020 4:04 PM CDT [facility] [employer] [facility] ENTRIL LABORATORY at 1604 CDT SPECIMEN ADEQUACY Satisfactory for evaluation Endocervical component present 10/22/2020 4:04 PM CDT [facility] [employer] [facility] ENTRAL LABORATORY HPV REQUEST HPV and PAP 10/22/2020 4:04 PM CDT [facility] ENTRAL LABORATORY Date of LMP 09/27/2020 10/22/2020 4:04 PM CDT [facility] ENTRAL LABORATORY Last Pap Date 09/20/2017 10/22/2020 4:04 PM CDT [facility] ENTRAL LABORATORY Last Pap Result NIL 4:04 PM CDT [facility] [employer] [facility] ENTRAL LABORATORY Menstrual Status 10/22/2020 4:04 PM CDT [facility] ENTRAL LABORATORY Comment:IUD Additional Information 10/22/2020 4:04 PM CDT [facility] [employer] [facility] ENTRAL LABORATORY Comment: Interpreted at [facility] [employer] [facility] - [address], [place] [address] Automated Review Successful 10/22/2020 4:04 PM CDT [employer] LABORATORY-C ENTRAL LABORATORY Comment:Specimen processed s uccessfully by automated american sign language interpreter device, [employer] System, [employer] ANCILLARY TESTING SENIOR SPEECH PATHOLOGIST HPV Ordered, Please see separate report 10/22/2020 4:04 PM CDT [facility]-C ENTRAL LABORATORY Note The pap test is [...] and malignant lesions. 10/22/2020 4:04 PM CDT [facility]- ENTRAL LABORATORY Other (Cervical/Vagina l) 10/15/2020 8:30 AM CDT 10/18/2020 9:58 AM CDT us Doctor Unknown PATHOLOGY/CYTOLOGY Final Result [facility] [address] [place] [address], from Last 3 Months or Most Recently Relevant to Health Maintenance Insurance [facility] Care Teams Communications Representative Relationship Specialty Start Date End Date Rose Mims MD [address] [place] [address] PCP - General Family Practice 12/25/24
[2025-03-31 01:10] VITALS: BP 96/68; PULSE 99; RESP 22; TEMP 36.1; O2SAT 97; BMI 27.4
[2025-03-31 01:45] VITALS: BP 100/68; PULSE 89; RESP 20; O2SAT 97
--- NOTE | 2025-03-31 01:48 | ED_ITS ---
HPI - General Adult General Chief complaint: Back Injury/Pain Stated complaint: Back pain Time Seen by Provider: 03/31/25 01:48 History of Present Illness HPI narrative: after taking a shower, pt bent over and developed back pain. Event happened around 0100. 34-year-old woman presenting to the emergency department with complaint of severe low back pain. Has been attending physical therapy. Is now about 23 weeks . Was seen a few months ago in this emergency department with lumbar radiculopathy and documented intrauterine at that time. About a week ago lifting her young son who along with dad and another younger sibling accompanies here in this emergency department. Was lifting her son and felt her back pinch. This seemed to stabilize but then tonight after shower bending over had sudden flare severe sharp pain. Balm like her legs wanted to go out. Is starting to feel some tightness around both hips now as well. Not going down her legs though. Is not experiencing abdominal pain. Is feeling significant amount of baby movement. No noted fevers. Notes a history of Jesse-Danlos. Related Data Home Medications ?Medication ?Instructions ?Recorded ?Confirmed prenat.vits,betina,[id number] 1 tab PO QDAY 08/04/22 08/15/24 Previous Rx's ?Medication ?Instructions ?Recorded oxycodone-acetaminophen 5 mg-325 1 - 2 tab PO Q4-6H [place] N intense 03/31/25 mg tablet (Endocet) pain #10 tabs Allergies Allergy/AdvReac Type Severity Reaction Status Date / Time Sulfa (Sulfonamide Allergy Rash Verified 08/15/24 09:35 Antibiotics) Review of Systems Status of ROS: Reports: 6 or more systems reviewed and unremarkable except as noted in History and below [facility] Medical History Anxiety and depression ?F41.9 - Anxiety disorder, unspecified (ICD-10) ?F32.A - Depression, unspecified (ICD-10) Osteoarthritis ?M19.90 - Unspecified osteoarthritis, unspecified site (ICD-10) Mild exercise-induced asthma ?J45.990 - Exercise induced bronchospasm (ICD-10) Joint hyperextensibility of multiple sites ?M24.80 - Other specific joint derangements of unspecified joint, not elsewhere classified (ICD-10) 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, unspecified (ICD-10) Chronic pain of both knees ?M25.561 - Pain in right knee (ICD-10) ?M25.562 - Pain in left knee (ICD-10) ?G89.29 - Other chronic pain (ICD-10) Chronic low back pain ?M54.50 - Low back pain, unspecified (ICD-10) ?G89.29 - Other chronic pain (ICD-10) Chronic pain ?G89.29 - Other chronic pain (ICD-10) Insomnia ?G47.00 - Insomnia, unspecified (ICD-10) Fibromyalgia ?M79.7 - Fibromyalgia (ICD-10) Hemorrhoids ?K64.9 - Unspecified hemorrhoids (ICD-10) UTI (urinary tract infection) ?N39.0 - Urinary tract infection, site not specified (ICD-10) Spontaneous in first trimester (02/2022) ?O03.9 - Complete or unspecified spontaneous without complication (ICD-10) Infection due to severe acute respiratory syndrome coronavirus 2 (SARS-CoV-2) ?U07.1 - COVID-19 (ICD-10) Spasm of cervical paraspinous muscle ?M62.838 - Other muscle spasm (ICD-10) Radiculitis ?M54.10 - Radiculopathy, site unspecified (ICD-10) depression ?F53.0 - depression (ICD-10) History of vaginal delivery Surgical History [place] teeth extracted ?K08.409 - Partial loss of teeth, unspecified cause, unspecified class (ICD- 10) History of right knee surgery (2008) ?Z98.890 - Other specified postprocedural states (ICD-10) Family History Brother Alcoholism Anxiety disorder Family/Other Alcoholism Father Anxiety disorder Diabetes Family history of early CAD Arthritis Mother Anxiety disorder Fibromyalgia Immune deficiency disorder Family/Other Anxiety disorder Sister Asthma FH: Down syndrome Paternal Grandfather Family history of stroke Other Migraine Social History Narrative: SOCIAL Education: High School/some college 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 Special Diet: Denies Ok with a blood transfusion: yes Culture or samaritan beliefs: Gnosticism - would want a smash fixer called in emergency RISK FACTORS Exercise Times/wk: not so much right now Depression/Anxiety: History of both, fairly recent - gotten better over last 6 month - seeing therapist once a week, not on medications - Pt stated it is working well. Seat Belt Use: Routinely Smoking: Denies past -quit 11 years ago - was smoking a pack a day Alcohol/day: Denies while Caffeine: yes - trying to limit, discussed 200mg limit recommendation Drug Use: Denies past/present Chicken Pox: Yes as a child MRSA: Denies COVID vaccine/boosters: had covid a year ago, declines vaccine at this time Flu vaccine: no What is your current living situation?: I presently have a place to live Problems where you live: no known problems In the past 12 months, utilities in danger of being shut off: no In past 12 months, lack of transportation kept you from medical appts, meetings, work, or getting things needed for daily living: no In the past 12 mos, have been you worried that your food would run out before you had money to buy more?: never true In the past 12 mos, the food you bought just didn't last and you didn't have money to buy more?: never true Smoking Status: Former smoker What tobacco products do you use: cigarettes Smoking quit date/years: <= 15 years ago Do you use any of these nicotine containing products: None Second hand tobacco smoke exposure: No How often do you have a drink containing alcohol: never How often do you have six or more drinks on one occasion: Never AUDIT-C Alcohol total score: 0 Non-prescribed substance use: denies use How often does anyone, including family, friends and others, physically hurt you : never How often does anyone, including family, friends and others, insult or talk down to you: rarely How often does anyone, including family, friends and others, threaten you with harm: never How often does anyone, including family, friends and others, scream or curse at you: never service: No Health Related Social Needs: Other personal risk factors, not elsewhere classified (Z91.89) Exam Narrative: Exam Narrative: Arrives in wheelchair crying in pain accompanied by family. Unfortunately due to events in the emergency department was unable to be seen for little time. I see Ishmael in the exam bed furrowing her brow in apparent discomfort. She is breathing easily. Is hesitant and in pain with transitions. Palpating about her back she is quite sore to palpation in the mid low lumbar spine. I do not appreciate any deformity. She is not have SI joint area tenderness. Musculature is tense in the low back. Abdomen is appropriately gravid and soft and nontender. 2+ DTRs in lower extremity. She has good strength in lower extremities. I did return to place Dopplers. Heart rate easily detectable in the 150s to 160s. Const: Vital Signs, click to edit/add: Vital Signs - 24 hr 03/31/25 01:10 03/31/25 01:45 Temperature 97.0 F L Pulse Rate [Left] 99 89 Respiratory Rate 22 20 Blood Pressure [Ri ght Upper Arm] 96/68 100/68 Pulse Oximetry 97 97 Oxygen Delivery Me thod Room Air Room Air Documenting provider has reviewed patient's vital signs: yes Course Vital Signs Vital signs: Initial Vital Signs Temperature 97.0 F L 03/31/25 01:10 Temperature Source Temporal Artery Scan 03/31/25 01:10 Pulse Rate 99 03/31/25 01:10 Respiratory Rate 22 03/31/25 01:10 Blood Pressure 96/68 03/31/25 01:10 Blood Pressure Mean 77 03/31/25 01:10 Blood Pressure Position Sitting 03/31/25 01:10 Pulse Oximetry 97 03/31/25 01:10 Oxygen Delivery Method Room Air 03/31/25 01:10 Vital Signs Temperature 97.0 F L 03/31/25 01:10 Pulse Rate 99 03/31/25 01:10 Respiratory Rate 22 03/31/25 01:10 Blood Pressure 96/68 03/31/25 01:10 Pulse Oximetry 97 03/31/25 01:10 Oxygen Delivery Method Room Air 03/31/25 01:10 Temperature 97.0 F L 03/31/25 01:10 Pulse Rate 89 03/31/25 01:45 Respiratory Rate 20 03/31/25 01:45 Blood Pressure 100/68 03/31/25 01:45 Pulse Oximetry 97 03/31/25 01:45 Oxygen Delivery Method Room Air 03/31/25 01:45 Medications Administered Medications: Generic Name Dose Route Start Last Admin Trade Name Jesus PRN Reason Stop Dose Admin Oxycodone/Acetaminophen 2 tab 03/31/25 01:56 03/31/25 02:03 Oxycodone/Apap 5-325 Tablet PO 03/31/25 01:57 2 tab ONCE ONE Administration Medical Decision Making MDM Narrative Medical decision making narrative: I do not think there are any red flags here. Appears to have had experienced a flare with muscle spasming of underlying low back pain. I with a with radicular symptoms. I think symptoms into the hips are more related to muscle tension. Discussed options for care, treatment. I offered injection versus oral medication. She would prefer to avoid injection. Opted to treat similarly to last ER visit in November. Given 2 tablets of Percocet here in the emergency department. Limited treatment options as twenty-three weeks . Also ate a sandwich. See patient discharge plan for further discussion I understand you have another physical therapy appointment on Sunday. Similar to last time in November of this year in this emergency department, we have given you Percocet -- contains 5 mg of oxycodone 325 mg of acetaminophen per tablet. Can take up to 1000 mg of acetaminophen per dose. Will be prescribing more of these from [facility]. These can be constipating and sedating. (apologies. We do not seem to this or similar medication in [facility] at this time. So I have sent them to your pharmacy) Please follow-up as soon as possible in primary care for further recommendations, pain management. Be seen sooner/return for uncontrolled pain, new and focal weakness, unusual loss of bowel or bladder control. Discharge Plan Discharge Clinical Impression: Low back pain, Muscle spasm of back Patient Disposition: Home w/ Parent or Adult Condition: Stable Additional Instructions: I understand you have another physical therapy appointment on Sunday. Similar to last time in November in this emergency department, we have given you Percocet -- contains 5 mg of oxycodone 325 mg of acetaminophen per tablet. Can take up to 1000 mg of acetaminophen per dose. Will be prescribing more of these from [facility]. These can be constipating and sedating. (apologies. We do not seem to this or similar medication in [facility] at this time. So I have sent them to your pharmacy) Please follow-up as soon as possible in primary care for further recommendations, pain management. Be seen sooner/return for uncontrolled pain, new and focal weakness, unusual loss of bowel or bladder control. Prescriptions: New oxycodone-acetaminophen [Endocet] 5-325 mg tablet 1 - 2 tab PO Q4-6H PRN (Reason: intense pain) Qty: 10 0RF No Action prenat.vits,betina,npt-rans-vfcze Tablet 1 tab PO QDAY Follow Up/Referrals: Provider,Not a Local [Non-Staff, Family Practice] Stand Alone Forms: MyHealth Info Instructions
[2025-03-31] MEDS: OxyCODONE/APAP 5-325 TABLET 2 TAB PO (02:03)
== END 2025-03-31 02:38 | disposition home or self-care (01) ==
PROVIDERS: Emergency Provider Family Medicine; PCP Family Medicine
DX: M54.50 Low back pain, unspecified (principal); M62.830 Muscle spasm of back
CPT/HCPCS: 99283; 99284; A9270